=== PATIENT | male | born 1950 | race Caucasian/White ===

== ENCOUNTER 2018-05-16 10:43 | Emergency (ER) | payer MEDICARE, MEDICAID ==
--- NOTE | 2018-05-16 11:34 | ER Document Report ---
ED General - General Chief Complaint: Headache >24 hrs old Stated Complaint: HEADACHE Time Seen by Provider: 05/16/18 11:07 Mode of Arrival: Ambulatory Information source: Patient, [facility] Records Notes: 67-year-old male with hypertension, liver failure, cirrhosis, type 2 diabetes, hepatitis C presents with complaint of headache that started 1 week prior to arrival and right-sided facial droop that also started 1 week ago. Patient reports right-sided weakness for 1 year. Patient describes his headache as generally located greater on the right side, initially aching but more severe today. He states that for over one year he has had right-sided weakness and has had difficulty with his right foot. He states that he has been seen by his primary care physician and told that he did not have a stroke. Patient denies any fever, chills, nausea, vomiting, chest pain, abdominal pain, saddle anesthesia, urinary retention, fecal incontinence, history of drug abuse. TRAVEL OUTSIDE OF THE [place] IN LAST 30 DAYS: No COUNTRY TRAVELED TO/FROM: [facility] Onset: Other Onset/Duration: Gradual, Persistent, Worse Quality of pain: Achy, Throbbing Severity: Moderate Associated symptoms: Headache, Nausea - Photophobia, Weakness, Other. denies: Chest pain, Nonproductive cough, Diarrhea, Earache, Fever, Vomiting Exacerbated by: Denies Relieved by: Denies Similar symptoms previously: Yes Recently seen / treated by doctor: Yes - Related Data Allergies/Adverse Reactions: Penicillins Allergy (Severe, Verified 05/16/18 10:47) mouth swelling Past Medical History - General Information source: Patient, [facility] Records - Social History Smoking Status: Former Smoker Chew tobacco use (# tins/day): No Frequency of alcohol use: None Drug Abuse: None Lives with: Alone Family History: CAD Patient has suicidal ideation: No Patient has homicidal ideation: No - Past Medical History Cardiac Medical History: Reports: Hx Hypertension Denies: Hx Congestive Heart Failure, Hx Coronary Artery Disease, Hx DVT, Hx Heart Attack, Hx Hypercholesterolemia, Hx Pulmonary Embolism Pulmonary Medical History: Denies: Hx Asthma, Hx COPD Neurological Medical History: Denies: Hx Seizures Endocrine Medical History: Reports: Hx Diabetes Mellitus Type 2. Denies: Hx Hyperthyroidism, Hx Hypothyroidism Renal/ Medical History: Denies: Hx Peritoneal Dialysis GI Medical History: Reports: Hx Cirrhosis, Hx Hepatitis - Hep C, diagnosed 21 years ago; untreated., Hx Liver Failure Musculoskeletal Medical History: Denies Hx Arthritis Psychiatric Medical History: Reports: Hx Depression Infectious Medical History: Reports: Hx Hepatitis - Hep C, diagnosed 21 years ago; untreated.. Denies: Hx MRSA Past Surgical History: Reports: Hx Orthopedic Surgery - R Knee surgery 4. Review of Systems - Review of Systems Notes: REVIEW OF SYSTEMS: CONSTITUTIONAL : Denies fever, chills, or sweats. Denies recent illness. Denies weight loss, recent hospitalizations. EENT: Denies visual changes, eye pain. Denies sore throat, oral lesions, difficulty swallowing. CARDIOVASCULAR: Denies chest pain. Denies palpitations. Denies lower extremity edema. RESPIRATORY: Denies cough. Denies shortness of breath, wheezing. GASTROINTESTINAL: Denies abdominal pain or distention. Denies nausea, vomiting , or diarrhea. Denies blood in vomitus, stools, or per rectum. Denies black, tarry stools. Denies constipation. GENITOURINARY: Denies difficulty urinating, painful urination, frequency, blood in urine, testicular pain or penile discharge. MUSCULOSKELETAL: Denies back or neck pain or stiffness. Denies joint pain or swelling. SKIN: Denies rash, lesions or sores. HEMATOLOGIC : Denies easy bruising or bleeding. LYMPHATIC: Denies swollen glands. NEUROLOGICAL: Denies confusion or altered mental status. Denies loss of consciousness. Denies dizziness or lightheadedness. Denies weakness or paralysis. Denies sensory loss, numbness, or tingling. Denies seizures. PSYCHIATRIC: Denies anxiety or stress. Denies depression, suicidal ideation, or Physical Exam - Vital signs Vitals: Temp Pulse Resp BP Pulse Ox 98.6 F 97 14 143/73 H 96 05/16/18 10:50 05/16/18 10:50 05/16/18 10:50 05/16/18 10:50 05/16/18 10:50 - Notes Notes: PHYSICAL EXAMINATION: GENERAL: Well-appearing, well-nourished and in no acute distress. HEAD: Atraumatic, normocephalic. EYES: Pupils equal round and reactive to light, extraocular movements intact, sclera anicteric, conjunctiva are normal. Patient unable to close his right eye or raise his right eyebrow. ENT: Nares patent, oropharynx clear without exudates. Moist mucous membranes. NECK: Normal range of motion, supple without lymphadenopathy LUNGS: Breath sounds clear to auscultation bilaterally and equal. No wheezes rales or rhonchi. HEART: Regular rate and rhythm without murmurs ABDOMEN: Soft, nontender, nondistended abdomen. No guarding, no rebound. No masses appreciated. Musculoskeletal: Normal range of motion, no pitting or edema. No cyanosis. NEUROLOGICAL: Right-sided facial palsy including the forehead and right eye, right-sided facial droop. Abnormal speech speech, abnormal gait. NIH-4 for facial droop, dysarthria, right lower extremity drift. PSYCH: Normal mood, normal affect. SKIN: Warm, Dry, normal turgor, no rashes or lesions noted. Course - Re-evaluation Re-evalutation: 05/16/18 21:53 Laboratory 05/16/18 05/16/18 05/16/18 11:16 11:16 11:16 WBC 3.6 L RBC 4.52 Hgb 10.6 L Hct 33.2 L MCV 74 L MCH 23.4 L MCHC 31.8 L RDW 19.8 H Plt Count 85 L Seg Neutrophils % 57.2 Lymphocytes % 31.2 Monocytes % 7.6 Eosinophils % 2.9 Basophils % 1.1 Absolute Neutrophils 2.1 Absolute Lymphocytes 1.1 Absolute Monocytes 0.3 Absolute Eosinophils 0.1 Absolute Basophils 0.0 PT 18.6 H INR 1.48 APTT 33.3 Sodium 140.9 Potassium 3.9 Chloride 110 H Carbon Dioxide 20 L Anion Gap 11 BUN 12 Creatinine 0.87 Est GFR ( Amer) > 60 Est GFR (Non-Af Amer) > 60 Glucose 151 H Calcium 9.0 Total Bilirubin 2.7 H Direct Bilirubin 1.4 H Neonat Total Bilirubin Not Reportable Neonat Direct Bilirubin Not Reportable Neonat Indirect Bili Not Reportable AST 106 H ALT 58 Alkaline Phosphatase 77 Troponin I Total Protein 7.9 Albumin 3.5 Urine Color Urine Appearance Urine pH Ur Specific [place] Urine Protein Urine Glucose (UA) Urine Ketones Urine Blood Urine Nitrite Urine Bilirubin Urine Urobilinogen Ur Leukocyte Esterase Urine WBC (Auto) Urine RBC (Auto) Squamous Epi Cells Auto Urine Mucus (Auto) Urine Ascorbic Acid Urine Opiates Screen Urine Methadone Screen Ur Barbiturates Screen Ur Phencyclidine Scrn Ur Amphetamines Screen U Benzodiazepines Scrn Urine Cocaine Screen U Marijuana (THC) Screen 05/16/18 05/16/18 05/16/18 11:16 11:54 11:54 WBC RBC Hgb Hct MCV MCH MCHC RDW Plt Count Seg Neutrophils % Lymphocytes % Monocytes % Eosinophils % Basophils % Absolute Neutrophils Absolute Lymphocytes Absolute Monocytes Absolute Eosinophils Absolute Basophils PT INR APTT Sodium Potassium Chloride Carbon Dioxide Anion Gap BUN Creatinine Est GFR ( Amer) Est GFR (Non-Af Amer) Glucose Calcium Total Bilirubin Direct Bilirubin Neonat Total Bilirubin Neonat Direct Bilirubin Neonat Indirect Bili AST ALT Alkaline Phosphatase Troponin I < 0.012 Total Protein Albumin Urine Color ALEJO Urine Appearance CLEAR Urine pH 5.0 Ur Specific [place] 1.027 Urine Protein NEGATIVE Urine Glucose (UA) NEGATIVE Urine Ketones NEGATIVE Urine Blood NEGATIVE Urine Nitrite NEGATIVE Urine Bilirubin NEGATIVE Urine Urobilinogen 4.0 H Ur Leukocyte Esterase NEGATIVE Urine WBC (Auto) 1 Urine RBC (Auto) 2 Squamous Epi Cells Auto <1 Urine Mucus (Auto) MANY Urine Ascorbic Acid NEGATIVE Urine Opiates Screen NEGATIVE Urine Methadone Screen NEGATIVE Ur Barbiturates Screen NEGATIVE Ur Phencyclidine Scrn NEGATIVE Ur Amphetamines Screen NEGATIVE U Benzodiazepines Scrn UNCONFIRMED POSITIVE Urine Cocaine Screen NEGATIVE U Marijuana (THC) Screen NEGATIVE Head CT 05/16/18 11:30 IMPRESSION: No significant intracranial abnormalities were identified. Findings as noted above EVIDENCE OF ACUTE STROKE: NO. Head CTA 05/16/18 11:30 IMPRESSION: 1. Calcific atherosclerosis of the bilateral internal carotid artery origins without high-grade stenosis. 2. The vertebral arteries are patent bilaterally. 3. The intracranial arterial circulation is patent without evidence of stenosis , occlusion, or aneurysm. Neck CTA 05/16/18 11:30 IMPRESSION: 1. Calcific atherosclerosis of the bilateral internal carotid artery origins without high-grade stenosis. 2. The vertebral arteries are patent bilaterally. 3. The intracranial arterial circulation is patent without evidence of stenosis , occlusion, or aneurysm. Head MRI 05/16/18 13:25 IMPRESSION: Mild chronic microvascular ischemic changes with no acute intracranial imaging findings. EVIDENCE OF ACUTE STROKE: NO. 67-year-old male presents with 1 week of right-sided facial droop on right- sided headache. Vital signs stable upon arrival. Exam significant for right sided facial paralysis including the forehead. TMs clear bilaterally. NIH performed and scored as a floor for facial droop, dysarthria and ataxia of the right lower extremity. 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 He states he has been told by a few of his friends that he must have had a stroke because of the way he has been walking. He denies any injury. Denies back pain , saddle anesthesia, urinary retention or fecal incontinence. Patient does have cirrhosis but denies any abdominal pain, nausea, vomiting. CTA of the head and neck were obtained after a negative head CT and showed no large vessel occlusions. MRI was obtained and showed mild chronic microvascular ischemic changes but no acute findings. Diagnosis discussed with the patient. I did discuss treatment with the patient and the importance of keeping his eye lubricated. I also discussed that steroids and antiviral medications would unlikely shorten the course since present for greater than 72 hours but the patient would like to try the medication anyway. I did provide the patient with copies of all of his done today. He is currently in between primary care physicians and states he has an upcoming appointment this week. Patient was evaluated and treated as appropriate for the patient's presenting symptoms and complaint, with consideration of any critical or life threatening conditions that may be associated with their obtained history and exam as noted above. All results were discussed with patient and he was provided copies. Imaging and blood work performed today. Patient provided the opportunity to ask questions, and express concerns. Patient was educated on treatments based on their presumed diagnosis as noted above. At this time we will discharge the patient with return precautions and follow-up recommendations. Verbal discharge instructions given a the bedside. Medication warnings reviewed. Patient is in agreement with this plan and has verbalized understanding of return precautions. After careful consideration I feel that that patient can be safely discharged from the emergency department, they were advised to followup with a primary care physician in 2-3 days. Dictation on this chart was performed using voice recognition software and may result in unintended grammatical, spelling, syntax or errors. 05/16/18 21:55 - Vital Signs Vital signs: Temp Pulse Resp BP Pulse Ox 98.6 F 94 20 143/72 H 97 05/16/18 10:50 05/16/18 15:00 05/16/18 18:08 05/16/18 18:08 05/16/18 18:08 - Laboratory Result Diagrams: 05/16/18 11:16 05/16/18 11:16 Laboratory results interpreted by me: 05/16/18 05/16/18 05/16/18 11:16 11:16 11:16 WBC 3.6 L Hgb 10.6 L Hct 33.2 L MCV 74 L MCH 23.4 L MCHC 31.8 L RDW 19.8 H Plt Count 85 L PT 18.6 H Chloride 110 H Carbon Dioxide 20 L Glucose 151 H Total Bilirubin 2.7 H Direct Bilirubin 1.4 H AST 106 H Urine Urobilinogen 05/16/18 11:54 WBC Hgb Hct MCV MCH MCHC RDW Plt Count PT Chloride Carbon Dioxide Glucose Total Bilirubin Direct Bilirubin AST Urine Urobilinogen 4.0 H - Diagnostic Test Radiology reviewed: Image reviewed, Reports reviewed - EKG Interpretation by Me EKG shows normal: Sinus rhythm Rate: Normal Rhythm: NSR When compared to previous EKG there are: No significant change Discharge - Discharge Clinical Impression: Facial paralysis/[place] palsy HTN (hypertension) Qualifiers: Hypertension type: unspecified Qualified Code(s): I10 - Essential (primary) hypertension Cirrhosis Qualifiers: Hepatic cirrhosis type: unspecified hepatic cirrhosis Ascites presence: unspecified Qualified Code(s): K74.60 - Unspecified cirrhosis of liver Anemia Qualifiers: Anemia type: unspecified type Qualified Code(s): D64.9 - Anemia, unspecified Hepatitis C, chronic Qualifiers: Hepatic coma status: without hepatic coma Qualified Code(s): B18.2 - Chronic viral hepatitis C Headache Qualifiers: Headache type: unspecified Headache chronicity pattern: unspecified pattern Intractability: not intractable Qualified Code(s): R51 - Headache Condition: Good Disposition: HOME, SELF-CARE Instructions: Attum's Palsy ([facility]), Headache ([facility]), Steroid Medication Additional Instructions: Your imaging today did not show an acute stroke. Follow up with your [id number] hours for further care or return to the ED IMMEDIATELY if symptoms worsen or you have any concerns. If you cannot afford to follow up with your primary care physician a list of low cost clinics have been provided at the end of your discharge papers as well. Most prescribed medications have multiple side effects. The safest thing to do is when filling your prescription speak to your pharmacist regarding possible interactions with your normal home medications and over the counter medications such as Ibuprofen, Tylenol, Benadryl. If you experience any symptoms that cause you discomfort or concern you should discontinue the medication immediately and return to the emergency room or call your primary care physician. Please bring all of your imaging with you when you see your new physician next week. Prescriptions: Mineral Oil/Petrolatum,White [Artificial Tears Eye Ointment] 3.5 gm OP BID 1 Days #1 tube Prednisone [Deltasone 20 mg Tablet] 3 tab PO DAILY 5 Days #15 tablet Valacyclovir HCl [Valacyclovir] 1,000 mg PO TID #30 tablet Forms: Elevated Blood Pressure Referrals: BRENDAN GONZALEZ DO [NO LOCAL MD] - Follow up as needed ED NIH Stroke Scale - NIH Stroke Scale *: 1. NIH scale should be completed with appropriate accompanying assessment tools. *: 2. The NIH should reflect what the patient is capable of doing and should not be coached by the clinician. 1a. Level of Consciousness: 0=Alert;keenly responsive -: 1=Drowsy -: 2=Obtunded -: 3=Coma/unresponsive or reflex to noxious stimuli. 1a. Responses: 0 1b. Orientation Questions: a. What month is it? -: b. How old are you? -: 0=Answers both questions correctly. -: 1=Answers one question correctly or patient is intubated or has orotracheal trauma. -: 2=Answers neither question correctly. 1b. Responses: 0 1c. Response to commands: a. Open and close eyes? -: b. Adjudication Specialist and release hand? -: Credit is given despite weakness. Demonstration of task is permitted. Substitute command if hands cannot be used. -: 0=Performs both tasks correctly -: 1=Performs one task correctly -: 2=Performs neither task correctly 1c. Responses: 0 2. Gaze: Establish eye contact and instruct patient to "Follow my finger" -: 0=Normal -: 1=Partial gaze palsy. Gaze is abnormal in one or both eyes, but where forced deviation or total gaze paresis is not present. -: 2=Forced deviation or total gaze paresis. 2. Responses: 0 3. Visual Aldana: Sees fingers in all four quadrants. -: 0=No visual loss. -: 1=Partial hemianopsia. -: 2=Complete hemianopsia. -: 3=Bilateral hemianopsia (including Cortical blindness) 3. Responses: 0 4. Facial Movement: Instruct patient to: -: a. Show me your teeth -: b. Raise your eyebrows -: c. Close your eyes -: d. Smile -: 0=Normal symmetrical movement -: 1=Minor paralysis (flattened nasolabial fold, asymmetry on smiling). -: 2=Partial paralysis (total or near total paralysis of lower face). -: 3=Complete paralysis of upper and lower face 4. Responses: 1 5. Motor functions (left arm): Alternate sides and extend each arm with palms down (90 degrees if sitting or 45 degrees for supine). -: 0=No drift;limb holds for full 10 seconds. -: 1=Drift; limb holds but drifts down before full 10 seconds, but does not hit bed. -: 2=Some effort against gravity; limb cannot get to or maintain position. -: 3=No effort against gravity; limb falls. -: 4=No movement. -: UN=Amputation, joint fusion, explain in comments. 5. Responses (left arm): 0 5. Motor Functions (right arm): Alternate sides and extend each arm with palms down (90 degrees if sitting or 45 degrees for supine). -: 0=No drift;limb holds for full 10 seconds. -: 1=Drift; limb holds but drifts down before full 10 seconds, but does not hit bed. -: 2=Some effort against gravity; limb cannot get to or maintain position. -: 3=No effort against gravity; limb falls. -: 4=No movement. -: UN=Amputation, joint fusion, explain in comments. 5. Responses (right arm): 0 6. Motor Functions (left leg): With patient lying supine, alternate sides and extend each leg (30 degrees always while supine). -: 0=No drift, leg holds position for full 5 seconds -: 1=Drift; leg falls before full 5 seconds but does not hit bed. -: 2=Some effort against gravity, leg falls to bed but some effort against gravity. -: 3=No effort against gravity, leg falls to bed immediately. -: 4=No movement. -: UN=Amputation, joint fusion; explain in comments. 6. Responses (left leg): 0 6. Motor Functions (right leg): With patient lying supine, alternate sides and extend each leg (30 degrees always while supine). -: 0=No drift, leg holds position for full 5 seconds -: 1=Drift; leg falls before full 5 seconds but does not hit bed. -: 2=Some effort against gravity, leg falls to bed but some effort against gravity. -: 3=No effort against gravity, leg falls to bed immediately. -: 4=No movement. -: UN=Amputation, joint fusion; explain in comments. 6. Responses (right leg): 1 7. Limb Ataxia: With eyes open instruct patient to: -: a. "Touch your finger to your nose". -: b. "Touch your heel to your hester" -: 0=Absent -: 1=Present in one limb. -: 2=Present in two limbs. -: UN=Amputation or joint fusion; explain in comments. 7. Responses: 1 7. If ataxia present choose as appropriate: Right leg 8. Sensory: Test sensation using pinprick or noxious stimuli. Test as many body parts as possible. -: 0=Normal;no sensory loss -: 1=Mile to moderate sensory loss (patient feels pin prick but is less sharp on affected side). -: 2=Severe or total sensory loss. 8. Responses: 0 9. Best Language: Instruct patient to: -: a. "Describe what you see in this picture." -: b. "Name the items in this picture." -: c. "Read these sentences." -: 0=No aphasia, normal -: 1=Mild to moderate aphasia. -: 2=Severe aphasia -: 3=Mute, global aphasia, no usable speech or auditory comprehension. 9. Responses: 0 10. Articulation, Dysarthia: Instruct patient to: -: "Read these words" or "Repeat these words" -: 0=Normal -: 1=Mild to moderate; patient may slur some words but can be understood without difficulty. -: 2=Severe; patients speech so slurred as to be unintelligible in the absence of dysphasia. -: UN=Intubated or other physical barrier, explain in comments. 10. Responses: 1 11. Extinction or inattention: 0=No abnormality -: 1= Visual, tactile, auditory, spatial, or personal inattention or extinction to bilateral simulation in one or the sensory modalities. -: 2=Profound barbara-inattention or barbara-inattention to more than one modality; does not recognize own hand. Total Score: 4
[2018-05-16 11:41] LABS: INTERNATIONAL RATION (INR) 1.48
[2018-05-16 11:42] LABS: PARTIAL THROMBOPLASTIN TIME 33.3 SEC (23.5-35.8)
[2018-05-16 11:45] LABS: PROTHROMBIN TIME 18.6 SEC (11.4-15.4)
[2018-05-16 11:46] LABS: ABSOLUTE EOSINOPHILS # (AUTO) 0.1 10^3/uL (0.0-0.6); ABSOLUTE LYMPHOCYTES (AUTO) 1.1 10^3/uL (0.5-4.7); ABSOLUTE MONOCYTES (AUTO) 0.3 10^3/uL (0.1-1.4); ABSOLUTE NEUT (AUTO) 2.1 10^3/uL (1.7-8.2); BASOPHILS % (AUTO) 1.1 % (0-2); EOSINOPHILS % (AUTO) 2.9 % (0-6); HEMATOCRIT 33.2 % (37.9-51.0); HEMOGLOBIN 10.6 g/dL (13.5-17.0); LYMPHOCYTES % (AUTO) 31.2 % (13-45); MEAN CORPUSCULAR HEMOGLOBIN 23.4 pg (27.0-33.4); MEAN CORPUSCULAR HGB CONC 31.8 g/dL (32.0-36.0); MEAN CORPUSCULAR VOLUME 74 fl (80-97); MONOCYTES % (AUTO) 7.6 % (3-13); RED BLOOD COUNT 4.52 10^6/uL (4.35-5.55); RED CELL DISTRIBUTION WIDTH 19.8 % (11.5-14.0); SEGMENTED NEUTROPHILS % (AUTO) 57.2 % (42-78); TOTAL CELLS COUNTED % (AUTO) 100 %; WHITE BLOOD COUNT 3.6 10^3/uL (4.0-10.5)
[2018-05-16] MEDS ORDERED: METOCLOPRAMIDE HCL INJ/PF 10 MG/2 ML SDV IV ONE (11:50)
[2018-05-16] MEDS ORDERED: DIPHENHYDRAMINE HCL 50 MG/ML VIAL IV ONE (11:51)
[2018-05-16] MEDS ORDERED: NORMAL SALINE 500 ML IV ONE (11:51)
[2018-05-16 11:52] LABS: ALANINE AMINOTRANSFERASE 58 U/L (21-72); ALBUMIN 3.5 g/dL (3.5-5.0); ALKALINE PHOSPHATASE 77 U/L (38-126); ANION GAP 11 (5-19); ASPARTATE AMINO TRANSFERASE 106 U/L (17-59); BILIRUBIN,DIRECT 1.4 mg/dL (0.0-0.4); BILIRUBIN,TOTAL 2.7 mg/dL (0.2-1.3); BLOOD UREA NITROGEN 12 mg/dL (7-20); CARBON DIOXIDE 20 mmol/L (22-30); CHLORIDE 110 mmol/L (98-107); GLUCOSE 151 mg/dL (75-110); POTASSIUM 3.9 mmol/L (3.6-5.0); SODIUM 140.9 mmol/L (137-145); TOTAL PROTEIN 7.9 g/dL (6.3-8.2)
--- NOTE | 2018-05-16 12:06 | RADIOLOGY REPORT (SQ) ---
EXAM DESCRIPTION: CT HEAD WITHOUT COMPLETED DATE/TIME: 05/16/2018 11:44 am REASON FOR STUDY: facial droop COMPARISON: None. TECHNIQUE: Axial images acquired through the brain without intravenous contrast. Images reviewed wi th bone, brain and subdural windows. Additional sagittal and coronal reconstructions were generated. Images stored on PACS. All CT scanners at this facility use dose modulation, iterative reconstruction, and/or weight based d osing when appropriate to reduce radiation dose to as low as reasonably achievable (ALARA). [facility]: Dose Right [facility]: CareDose [facility]: Dose Right [facility]: Teradose 4D [facility]: [employer] RADIATION DOSE: mGy. LIMITATIONS: None. FINDINGS: VENTRICLES: Normal size and contour. CEREBRUM: No masses. No hemorrhage. No midline shift. No evidence for acute infarction. Normal gra y/white matter differentiation. No areas of low density in the white matter. CEREBELLUM: No masses. No hemorrhage. No alteration of density. No evidence for acute infarction. EXTRAAXIAL SPACES: No fluid collections. No masses. ORBITS AND GLOBE: No intra- or extraconal masses. Normal contour of globe without masses. CALVARIUM: No fracture. PARANASAL SINUSES: No fluid or mucosal thickening. SOFT TISSUES: No mass or hematoma. OTHER: No other significant finding. IMPRESSION: No significant intracranial abnormalities were identified. Findings as noted above EVIDENCE OF ACUTE STROKE: NO. COMMENT: Quality ID # [id number]: Final reports with documentation of one or more dose reduction techniques (e.g., Automated exposure control, adjustment of the mA and/or kV according to patient size, use of iterative reconstruction technique) TECHNICAL DOCUMENTATION: JOB ID: [id number] [employer]- All Rights Reserved Reading location - IP/workstation name: [email or web address]
[2018-05-16 12:07] LABS: PLATELET COUNT 85 10^3/uL (150-450)
--- NOTE | 2018-05-16 12:10 | RADIOLOGY REPORT (SQ) ---
EXAM DESCRIPTION: CTA NECK; CTA HEAD COMPLETED DATE/TIME: 05/16/2018 11:44 am REASON FOR STUDY: facial droop COMPARISON: None. TECHNIQUE: Post IV contrast scanning, thin section axial imaging through the neck and brain to evalu ate the arterial structures. Source and MIP images are saved and reviewed on PACS. Advanced 3D imaging as volume-rendering, MIPs, SSD performed? yes All CT scanners at this facility use dose modulation, iterative reconstruction, and/or weight based d osing when appropriate to reduce radiation dose to as low as reasonably achievable (ALARA). [facility]: Dose Right [facility]: CareDose [facility]: Dose Right [facility]: Teradose 4D [facility]: [employer] CONTRAST TYPE AND DOSE: contrast/concentration: Isovue 350.00 mg/ml; Total Contrast Delivered: 70.0 ml; Total Saline Delivered: 57.0 ml RENAL FUNCTION: GFR > 60. LIMITATIONS: None. FINDINGS: CERVICAL CAROTID AND VERTEBRAL SYSTEMS: There is calcific atherosclerosis of the bilatera l internal carotid artery origins without high-grade stenosis. The remaining extracranial carotid ci rculations are patent. No significant atherosclerosis at the common carotid origins. The vertebral arteries are patent to the confluence of the basilar artery and codominant. [place]: The anterior, middle, posterior cerebral arteries are all patent. No evidence of a neurysm or focal stenosis. POSTERIOR CIRCULATION: The distal vertebral arteries are patent as is the basilar artery. No aneurysm . The posterior communicating arteries are not well visualized, likely diminutive. BRAIN: No gross enhancing lesions as visualized. The superior cerebral hemispheres are not included in the field of view. BONES: Intact as visualized. SINUSES: No fluid or mucosal thickening. OTHER: No other significant finding. IMPRESSION: 1. Calcific atherosclerosis of the bilateral internal carotid artery origins without hig h-grade stenosis. 2. The vertebral arteries are patent bilaterally. 3. The intracranial arterial circulation is patent without evidence of stenosis, occlusion, or aneur ysm. TECHNICAL DOCUMENTATION: JOB ID: [id number] Quality ID # [id number]: Final reports with documentation of one or more dose reduction techniques (e.g., Au tomated exposure control, adjustment of the mA and/or kV according to patient size, use of iterative reconstruction technique) 2010 [employer]- All Rights Reserved Reading location - IP/workstation name: [email or web address]
--- NOTE | 2018-05-16 12:10 | RADIOLOGY REPORT (SQ) ---
EXAM DESCRIPTION: CTA NECK; CTA HEAD COMPLETED DATE/TIME: 05/16/2018 11:44 am REASON FOR STUDY: facial droop COMPARISON: None. TECHNIQUE: Post IV contrast scanning, thin section axial imaging through the neck and brain to evalu ate the arterial structures. Source and MIP images are saved and reviewed on PACS. Advanced 3D imaging as volume-rendering, MIPs, SSD performed? yes All CT scanners at this facility use dose modulation, iterative reconstruction, and/or weight based d osing when appropriate to reduce radiation dose to as low as reasonably achievable (ALARA). [facility]: Dose Right [facility]: CareDose [facility]: Dose Right [facility]: Teradose 4D [facility]: [employer] CONTRAST TYPE AND DOSE: contrast/concentration: Isovue 350.00 mg/ml; Total Contrast Delivered: 70.0 ml; Total Saline Delivered: 57.0 ml RENAL FUNCTION: GFR > 60. LIMITATIONS: None. FINDINGS: CERVICAL CAROTID AND VERTEBRAL SYSTEMS: There is calcific atherosclerosis of the bilatera l internal carotid artery origins without high-grade stenosis. The remaining extracranial carotid ci rculations are patent. No significant atherosclerosis at the common carotid origins. The vertebral arteries are patent to the confluence of the basilar artery and codominant. [place]: The anterior, middle, posterior cerebral arteries are all patent. No evidence of a neurysm or focal stenosis. POSTERIOR CIRCULATION: The distal vertebral arteries are patent as is the basilar artery. No aneurysm . The posterior communicating arteries are not well visualized, likely diminutive. BRAIN: No gross enhancing lesions as visualized. The superior cerebral hemispheres are not included in the field of view. BONES: Intact as visualized. SINUSES: No fluid or mucosal thickening. OTHER: No other significant finding. IMPRESSION: 1. Calcific atherosclerosis of the bilateral internal carotid artery origins without hig h-grade stenosis. 2. The vertebral arteries are patent bilaterally. 3. The intracranial arterial circulation is patent without evidence of stenosis, occlusion, or aneur ysm. TECHNICAL DOCUMENTATION: JOB ID: [id number] Quality ID # [id number]: Final reports with documentation of one or more dose reduction techniques (e.g., Au tomated exposure control, adjustment of the mA and/or kV according to patient size, use of iterative reconstruction technique) 2010 [employer]- All Rights Reserved Reading location - IP/workstation name: [email or web address]
[2018-05-16 12:45] LABS: URINE AMPHETAMINES SCREEN NEGATIVE; URINE BARBITURATES SCREEN NEGATIVE; URINE BENZODIAZEPINES SCREEN UNCONFIRMED POSITIVE; URINE COCAINE SCREEN NEGATIVE; URINE MARIJUANA (THC) SCREEN NEGATIVE; URINE METHADONE SCREEN NEGATIVE; URINE PHENCYCLIDINE SCREEN NEGATIVE
[2018-05-16 12:55] LABS: APPEARANCE,URINE CLEAR; BILIRUBIN,URINE NEGATIVE (NEGATIVE); COLOR,URINE AMBER; GLUCOSE, URINE NEGATIVE (NEGATIVE); KETONES,URINE NEGATIVE (NEGATIVE); LEUKOCYTE ESTERASE,URINE NEGATIVE (NEGATIVE); NITRITE,URINE NEGATIVE (NEGATIVE); PROTEIN,URINE NEGATIVE (NEGATIVE); URINE SPECIFIC GRAVITY 1.027
--- NOTE | 2018-05-16 15:43 | EKG REPORT ---
SEVERITY:- NORMAL ECG - SINUS RHYTHM : Confirmed by: Luisa Beasley MD 16-May-2018 15:43:19
[2018-05-16] MEDS ORDERED: PREDNISONE 20 MG TABLET PO ONE (16:16)
--- NOTE | 2018-05-16 17:30 | RADIOLOGY REPORT (SQ) ---
EXAM DESCRIPTION: MRI HEAD WITHOUT COMPLETED DATE/TIME: 05/16/2018 5:17 pm REASON FOR STUDY: r sided weakness COMPARISON: 01/07/2016 TECHNIQUE: Multiplanar imaging includes non-contrasted T1, T2, FLAIR, and diffusion with ADC map seq uences. Images stored on PACS. LIMITATIONS: None. FINDINGS: ANATOMY: No anomalies. Normal vascular flow voids. Pituitary fossa normal. CSF SPACES: Normal in size and contour. No hemorrhage. CEREBRUM: Sulci and gyri normal in size and contour. Scattered areas of increased white matter signa l on FLAIR imaging. No evidence of hemorrhage, mass, or extraaxial fluid collection. POSTERIOR FOSSA: No signal alteration. No hemorrhage. No edema, masses or mass effect. Internal phi tory canals, cerebello-pontine angles, mastoids normal. DIFFUSION IMAGING: Negative for acute or sub-acute infarction. ORBITS: No masses. Globes normal. PARANASAL SINUSES: No fluid levels. Mucosa normal. OTHER: No other significant finding. IMPRESSION: Mild chronic microvascular ischemic changes with no acute intracranial imaging findings. EVIDENCE OF ACUTE STROKE: NO. TECHNICAL DOCUMENTATION: JOB ID: [id number] [employer]- All Rights Reserved Reading location - IP/workstation name: [email or web address]
[2018-05-16] MEDS ORDERED: HYDROMORPHONE HCL INJ/PF 2 MG/ML AMPULE IV ONE (17:42)
[2018-05-16] MEDS ORDERED: ACYCLOVIR 800 MG TABLET PO ONE (17:42)
[2018-05-16 18:09] VITALS: BP 143/72
== END 2018-05-16 18:24 | disposition home or self-care (01) ==
LOC: ER 10:43
DX: R51 Headache (principal); G51.0 Bell's palsy; I10 Essential (primary) hypertension; E11.9 Type 2 diabetes mellitus without complications; K74.60 Unspecified cirrhosis of liver; D64.9 Anemia, unspecified; B18.2 Chronic viral hepatitis C; I65.23 Occlusion and stenosis of bilateral carotid arteries; R47.1 Dysarthria and anarthria; R27.0 Ataxia, unspecified; H53.149 Visual discomfort, unspecified; Z88.0 Allergy status to penicillin; Z87.891 Personal history of nicotine dependence
CPT/HCPCS: 93005; 99284; 96361; 96374; 96375; 36415; 85025; 85610; 85730; 80053; 81001; 84484; 80307; 70551; 70450; 70496; 70498; 93010; J1200; J2765; J1170; A9270 ×2; J7040; J3490; J7512

== ENCOUNTER 2018-06-18 11:05 | Inpatient (IN) | payer MEDICARE, MEDICAID ==
[2018-06-18] MEDS ORDERED: NORMAL SALINE 1000 ML 1,000 ML IV ONE (11:48)
[2018-06-18 12:17] LABS: ABSOLUTE EOSINOPHILS # (AUTO) 0.1 10^3/uL (0.0-0.6); ABSOLUTE LYMPHOCYTES (AUTO) 0.4 10^3/uL (0.5-4.7); ABSOLUTE MONOCYTES (AUTO) 0.3 10^3/uL (0.1-1.4); ABSOLUTE NEUT (AUTO) 1.5 10^3/uL (1.7-8.2); BASOPHILS % (AUTO) 0.3 % (0-2); EOSINOPHILS % (AUTO) 3.7 % (0-6); HEMATOCRIT 32.7 % (37.9-51.0); HEMOGLOBIN 10.3 g/dL (13.5-17.0); LYMPHOCYTES % (AUTO) 19.5 % (13-45); MEAN CORPUSCULAR HEMOGLOBIN 22.8 pg (27.0-33.4); MEAN CORPUSCULAR HGB CONC 31.4 g/dL (32.0-36.0); MEAN CORPUSCULAR VOLUME 73 fl (80-97); MONOCYTES % (AUTO) 12.2 % (3-13); PLATELET COUNT 109 10^3/uL (150-450); RED BLOOD COUNT 4.49 10^6/uL (4.35-5.55); RED CELL DISTRIBUTION WIDTH 23.3 % (11.5-14.0); SEGMENTED NEUTROPHILS % (AUTO) 64.3 % (42-78); TOTAL CELLS COUNTED % (AUTO) 100 %; WHITE BLOOD COUNT 2.3 10^3/uL (4.0-10.5)
[2018-06-18 12:24] LABS: INTERNATIONAL RATION (INR) 1.74; PROTHROMBIN TIME 21.2 SEC (11.4-15.4)
[2018-06-18 12:28] LABS: APPEARANCE,URINE CLOUDY; BILIRUBIN,URINE MODERATE (NEGATIVE); COLOR,URINE AMBER; GLUCOSE, URINE NEGATIVE (NEGATIVE); KETONES,URINE NEGATIVE (NEGATIVE); LEUKOCYTE ESTERASE,URINE NEGATIVE (NEGATIVE); NITRITE,URINE POSITIVE (NEGATIVE); PROTEIN,URINE 30 mg/dL (NEGATIVE); URINE SPECIFIC GRAVITY 1.023
[2018-06-18 12:30] LABS: ALANINE AMINOTRANSFERASE 63 U/L (21-72); ALBUMIN 3.4 g/dL (3.5-5.0); ALKALINE PHOSPHATASE 83 U/L (38-126); ANION GAP 12 (5-19); ASPARTATE AMINO TRANSFERASE 150 U/L (17-59); BILIRUBIN,DIRECT 5.4 mg/dL (0.0-0.4); BILIRUBIN,TOTAL 6.9 mg/dL (0.2-1.3); BLOOD UREA NITROGEN 12 mg/dL (7-20); CALCIUM 9.2 mg/dL (8.4-10.2); CARBON DIOXIDE 20 mmol/L (22-30); CHLORIDE 105 mmol/L (98-107); GLUCOSE 152 mg/dL (75-110); POTASSIUM 3.5 mmol/L (3.6-5.0); SODIUM 136.8 mmol/L (137-145); TOTAL PROTEIN 7.6 g/dL (6.3-8.2)
[2018-06-18 12:31] LABS: ALCOHOL < 10 mg/dL (NONE DETECTED)
--- NOTE | 2018-06-18 12:50 | RADIOLOGY REPORT (SQ) ---
EXAM DESCRIPTION: KNEE RIGHT 4 VIEWS COMPLETED DATE/TIME: 06/18/2018 12:29 pm REASON FOR STUDY: Fell and landed on right knee, swollen COMPARISON: None. NUMBER OF VIEWS: Four views. TECHNIQUE: AP, lateral, and both oblique radiographic images acquired of the right knee. LIMITATIONS: None. FINDINGS: MINERALIZATION: Normal. BONES: No acute fracture or dislocation. No worrisome bone lesions. Orthopedic staple in the proxim al tibia. JOINT: No significant effusion. Severe degenerative changes involving the patellofemoral joint in th e lateral compartment with mild degenerative changes involving the medial compartment. Mild chondroc alcinosis. SOFT TISSUES: Mild soft tissue edema. OTHER: No other significant finding. IMPRESSION: Degenerative changes without evidence of fracture. TECHNICAL DOCUMENTATION: JOB ID: [id number] [employer]- All Rights Reserved Reading location - IP/workstation name: [email or web address]
--- NOTE | 2018-06-18 13:58 | ER Document Report ---
ED General - General Chief Complaint: Knee Pain Stated Complaint: RIGHT KNEE PAIN Time Seen by Provider: 06/18/18 11:45 Notes: Patient fell 2 or 3 days ago and is complaining of pain in his right knee. Found by a neighbor today. Patient's noted that his skin and eyes have been turning yellow for the past few weeks. He noticed his urine is orange for the past week. Says he has not eaten anything since Monday. Not urinating. 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 Denies any nausea or vomiting or diarrhea. Says he has some pain in the left abdomen. Denies any chest pain. Denies any shortness of breath. Recent history of Tatum's palsy with right facial droop. TRAVEL OUTSIDE OF THE [place] IN LAST 30 DAYS: No COUNTRY TRAVELED TO/FROM: [place] - Related Data Allergies/Adverse Reactions: Penicillins Allergy (Severe, Verified 06/18/18 17:17) mouth swelling Past Medical History - Social History Smoking Status: Former Smoker Chew tobacco use (# tins/day): No Frequency of alcohol use: Stopped drinking 3 months prior Drug Abuse: None Family History: CAD Patient has suicidal ideation: No Patient has homicidal ideation: No - Past Medical History Cardiac Medical History: Reports: Hx Hypertension Neurological Medical History: Denies: Hx Seizures Endocrine Medical History: Reports: Hx Diabetes Mellitus Type 2. Denies: Hx Hyperthyroidism, Hx Hypothyroidism Renal/ Medical History: Denies: Hx Peritoneal Dialysis GI Medical History: Reports: Hx Cirrhosis, Hx Gastroesophageal Reflux Disease, Hx Hepatitis - Hep C, diagnosed 21 years ago; untreated., Hx Liver Failure Musculoskeletal Medical History: Denies Hx Arthritis Psychiatric Medical History: Reports: Hx Depression Infectious Medical History: Reports: Hx Hepatitis - Hep C, diagnosed 21 years ago; untreated.. Denies: Hx MRSA Past Surgical History: Reports: Hx Orthopedic Surgery - R Knee surgery 4. Review of Systems - Review of Systems Notes: REVIEW OF SYSTEMS: CONSTITUTIONAL : Denies fever. EENT: Denies eye, ear, nose or mouth or throat pain or other symptoms. Yellow color to the eyes over the past few weeks. CARDIOVASCULAR: Denies chest pain. RESPIRATORY: Denies cough, chest congestion, or shortness of breath. GASTROINTESTINAL: Says he has some pain in the left lower quadrant region of the abdomen but no nausea, vomiting, or diarrhea.. GENITOURINARY: Urine color has turned orange in the past week. Says his urine output has decreased significantly in the last couple of days. Denies difficulty or painful urinating, urinary frequency, blood in urine. MUSCULOSKELETAL: Fell on right knee 2 or 3 days ago. Swollen and painful with a black area over the center of the swollen right knee. Denies back or neck pain. Denies joint pain or swelling. SKIN: Denies rash or skin lesions. NEUROLOGICAL: Denies LOC or altered mental status. Denies headache. Denies sensory loss or motor deficits. ALL OTHER SYSTEMS REVIEWED AND NEGATIVE. Physical Exam - Vital signs Vitals: Resp Pulse Ox 18 97 06/18/18 12:14 06/18/18 12:14 Interpretation: Hypertensive Notes: PHYSICAL EXAMINATION: GENERAL: Jaundice of the skin and eyes, in no acute distress. HEAD: Atraumatic, normocephalic. EYES: Pupils equal round and reactive to light, extraocular movements intact. Scleral icterus. ENT: oropharynx clear without exudates. Moist mucous membranes. Right facial droop of the right corner of the mouth and right eyelids. Patient says he was diagnosed with Tatum's palsy a few weeks ago. NECK: Normal range of motion, supple. LUNGS: Breath sounds clear and equal bilaterally. HEART: Regular rate and rhythm without murmurs. ABDOMEN: Soft, nontender except for mild tenderness in the left lower quadrant, but no guarding or rebound. No masses. BACK: No tenderness throughout entire back. EXTREMITIES: Normal range of motion without pain. Patient has some swelling of the anterior aspect of the right knee. In the center is a black eschar formation. There is some erythema around the eschar. NEUROLOGICAL: Normal speech, unsteady gait. Normal sensory, motor, and reflex exams. Awake, alert, and oriented x3. Cranial nerves normal. PSYCH: Normal mood, normal affect. SKIN: Warm, dry, no rashes. Multiple bruises throughout the patient's torso and extremities. Course - Vital Signs Vital signs: Temp Pulse Resp BP Pulse Ox 97.7 F 108 H 18 146/72 H 99 06/18/18 17:42 06/18/18 17:42 06/18/18 17:42 06/18/18 17:42 06/18/18 17:42 - Laboratory Result Diagrams: 06/18/18 11:55 06/18/18 11:55 Laboratory results interpreted by me: 06/18/18 06/18/18 06/18/18 11:55 11:55 11:55 WBC 2.3 L Hgb 10.3 L Hct 32.7 L MCV 73 L MCH 22.8 L MCHC 31.4 L RDW 23.3 H Plt Count 109 L Absolute Neutrophils 1.5 L Absolute Lymphocytes 0.4 L PT 21.2 H Sodium 136.8 L Potassium 3.5 L Carbon Dioxide 20 L Creatinine 1.34 H Est GFR (Non-Af Amer) 53 L Glucose 152 H Total Bilirubin 6.9 H Direct Bilirubin 5.4 H AST 150 H Albumin 3.4 L Urine Protein Urine Blood Urine Nitrite Urine Bilirubin Urine Urobilinogen 06/18/18 11:55 WBC Hgb Hct MCV MCH MCHC RDW Plt Count Absolute Neutrophils Absolute Lymphocytes PT Sodium Potassium Carbon Dioxide Creatinine Est GFR (Non-Af Amer) Glucose Total Bilirubin Direct Bilirubin AST Albumin Urine Protein 30 H Urine Blood SMALL H Urine Nitrite POSITIVE H Urine Bilirubin MODERATE H Urine Urobilinogen 4.0 H - Diagnostic Test Radiology results interpreted by me: 06/18/18 14:53 X-ray of the patient's right knee shows no evidence of dislocation. No fracture seen. Some arthritis present. Discharge - Discharge Clinical Impression: Cirrhosis of liver, Liver failure Condition: Stable Admitting Provider: Hospitalist Unit Admitted: Telemetry
[2018-06-18] MEDS ORDERED: TRAMADOL HCL 50 MG TABLET PO ONE (14:04)
[2018-06-18] MEDS ORDERED: ACETAMINOPHEN 325 MG TABLET PO PRN (14:52)
[2018-06-18] MEDS ORDERED: MAG HYDROX/AL HYDROX/SIMETH SUSP 30 ML UDCUP PO PRN (14:52)
[2018-06-18] MEDS ORDERED: ONDANSETRON HCL INJ/PF 4 MG/2 ML SDV IV PRN (14:52)
[2018-06-18] MEDS ORDERED: MULTIVITAMINS W-IRON TABLET, CHEWABLE PO ONE (16:25)
[2018-06-18] MEDS ORDERED: GLUCAGON,HUMAN RECOMB 1 MG INJ IM PRN (16:29)
[2018-06-18] MEDS ORDERED: DEXTROSE 50%-WATER 25 GM/50 ML DISP.SYRIN IV PRN ×2 (16:29)
[2018-06-18] MEDS ORDERED: DEXTROSE 40% GEL 15 GM TUBE PO PRN ×2 (16:29)
--- NOTE | 2018-06-18 16:33 | PDOC H&P ---
History of Present Illness Admission Date/PCP: 06/18/18 15:04 Patient complains of: fall, Rt knee pain History of Present Illness: ELIS GRIGGS is a 67 year old male with a past medical history of end-stage liver disease, hepatitis C, DM type II, neuropathy, hypertension, GERD, depression, tobacco dependence, alcohol dependence, and drug abuse (patient reports that he discontinued tobacco, alcohol, recreational drugs 3 months ago) who presented to the emergency department today with a primary complaint of right knee pain status post mechanical fall at home. The patient reports that he has had multiple falls at home over the last month, reportedly has not had anything to eat in approximately 5 days, cannot recall whether or not he is drinking fluids but does note that he has not had any urine output. Evaluation in the emergency department revealed mild tachycardia (HR 114), tachypnea (RR 22), baseline anemia (hemoglobin 10.3), hypercoagulability (INR 1.74), AK I (CR 1.34; baseline 0.87), elevated LFTs (total bili 6.9; baseline 2.5), and a urinary tract infection. He is referred to the hospitalist service for admission and management of the ab ove stated complaints. Past Medical History Cardiac Medical History: Reports: Hypertension Denies: Congestive Heart Failure, Coronary Artery Disease, Myocardial Infarction, Hyperlipidema, Pulmonary Embolism Pulmonary Medical History: Denies: Asthma, Chronic Obstructive Pulmonary Disease (COPD) EENT Medical History: Reports: None Neurological Medical History: Denies: Ischemic CVA, Seizures Endocrine Medical History: Reports: Diabetes Mellitus Type 2, Obesity Denies: Hyperthyroidism, Hypothyroidism Renal/ Medical History: Reports: None Malignancy Medical History: Reports: None GI Medical History: Reports: Cirrhosis, Gastroesophageal Reflux Disease, Hepatitis - Hep C, diagnosed 21 years ago; untreated. Musculoskeltal Medical History: Denies: Arthritis Skin Medical History: Reports: None Psychiatric Medical History: Reports: Alcohol Dependency, Depression, Substance Abuse, Tobacco Dependency Traumatic Medical History: Reports: None Hematology: Reports: Anemia Infectious Medical History: Denies: Methicillin-Resistant Staph Aureus Past Surgical History Past Surgical History: Reports: Orthopedic Surgery - R Knee surgery 4. Social History Information Source: Patient Lives with: Alone Smoking Status: Former Smoker Last Time Smoked: 02/24/2018 Frequency of Alcohol Use: Heavy Amount of Alcoholic Beverages Per Day: 6 Hx Recreational Drug Use: Yes Drugs: Marijuana Hx Prescription Drug Abuse: No - Advance Directive Resuscitation Status: Do Not Resuscitate Surrogate healthcare decision maker:: Patient's daughter, Kerri Leigh, Family History Family History: CAD Parental Family History Reviewed: Yes Children Family History Reviewed: Yes Sibling(s) Family History Reviewed.: Yes Medication/Allergy Home Medications: Tamsulosin HCl [Flomax 0.4 mg Cap.sr] 0.4 mg PO PCSUPPER #30 cap.sr.24h 04/18/14 Amlodipine Besylate/Benazepril [Amlodipine-Benazepril 10-20 mg] 1 cap PO DAILY 03/30/16 Furosemide [Lasix 20 mg Tablet] 20 mg PO QAM 03/30/16 Gabapentin 300 mg PO HSP 03/30/16 Metformin HCl [Glucophage] 1,000 mg PO BID 03/30/16 Methadone HCl 20 mg PO Q8H 03/30/16 Omeprazole 40 mg PO DAILY 03/30/16 Oxycodone HCl [Oxy-Ir 5 mg Tablet] 5 mg PO Q4HP PRN 03/30/16 Zolpidem Tartrate [Ambien 5 mg Tablet] 10 mg PO HSP PRN 03/30/16 Sertraline HCl [Zoloft 50 mg Tablet] 50 mg PO DAILY #30 tablet 04/02/16 Sulfamethoxazole/Trimethoprim [Septra-Ds 800-160 mg Tablet] 1 tab PO BID #20 tablet 04/02/16 Mineral Oil/Petrolatum,White [Artificial Tears Eye Ointment] 3.5 gm OP BID 1 Days #1 tube 05/16/18 Prednisone [Deltasone 20 mg Tablet] 3 tab PO DAILY 5 Days #15 tablet 05/16/18 Valacyclovir HCl [Valacyclovir] 1,000 mg PO TID #30 tablet 05/16/18 Allergies/Adverse Reactions: Penicillins Allergy (Severe, Verified 05/16/18 10:47) mouth swelling Review of Systems Constitutional: PRESENT: anorexia, fatigue, weakness. ABSENT: chills, fever(s), headache(s), weight gain, weight loss Eyes: ABSENT: visual disturbances Ears: ABSENT: hearing changes Cardiovascular: PRESENT: edema. ABSENT: chest pain, dyspnea on exertion, orthropnea, palpitations Respiratory: ABSENT: cough, hemoptysis Gastrointestinal: PRESENT: bloating, heartburn, nausea. ABSENT: abdominal pain, constipation, diarrhea, hematemesis, hematochezia, vomiting Genitourinary: PRESENT: difficulty urinating. ABSENT: dysuria, hematuria Musculoskeletal: PRESENT: muscle weakness. ABSENT: joint swelling Integumentary: PRESENT: wounds - Abrasion right knee. ABSENT: rash Neurological: PRESENT: abnormal gait, frequent falls, weakness. ABSENT: abnormal speech, confusion, dizziness, focal weakness, syncope Psychiatric: ABSENT: anxiety, depression, homidical ideation, suicidal ideation Endocrine: ABSENT: cold intolerance, heat intolerance, polydipsia, polyuria Hematologic/Lymphatic: ABSENT: easy bleeding, easy bruising Physical Exam Vital Signs: Temp Pulse Resp BP Pulse Ox 26 H 136/78 H 100 06/18/18 15:01 06/18/18 15:01 06/18/18 14:12 Intake & Output 06/17/18 06/18/18 06/19/18 06:59 06:59 06:59 Weight 127.006 kg General appearance: PRESENT: no acute distress, disheveled, obese, well- developed, other - Anasarca Head exam: PRESENT: atraumatic, normocephalic Eye exam: PRESENT: conjunctiva pink, EOMI, PERRLA, scleral icterus Ear exam: PRESENT: normal external ear exam Mouth exam: PRESENT: moist, tongue midline Neck exam: ABSENT: carotid bruit, JVD, lymphadenopathy, thyromegaly Respiratory exam: PRESENT: clear to auscultation leno, decreased breath sounds - Bibasilar, symmetrical, unlabored. ABSENT: rales, rhonchi, wheezes Cardiovascular exam: PRESENT: RRR, +S1, +S2, tachycardia. ABSENT: diastolic murmur, rubs, systolic murmur Pulses: PRESENT: normal dorsalis pedis pul Vascular exam: PRESENT: normal capillary refill GI/Abdominal exam: PRESENT: ascites, distended, normal bowel sounds, soft, tenderness - Generalized. ABSENT: guarding, mass, organolmegaly, rebound Rectal exam: PRESENT: deferred Extremities exam: PRESENT: full ROM. ABSENT: calf tenderness, clubbing, pedal edema Neurological exam: PRESENT: alert, awake, oriented to person, oriented to place, oriented to time, oriented to situation, CN II-XII grossly intact, other - Intermittent confusion; forgetfulness. ABSENT: motor sensory deficit Psychiatric exam: PRESENT: appropriate affect, normal mood. ABSENT: homicidal ideation, suicidal ideation Skin exam: PRESENT: dry, jaundice, warm, other - Abrasion right knee; numerous scattered ecchymosis. ABSENT: cyanosis, rash Results Laboratory Results: 06/18/18 11:55 06/18/18 11:55 06/18/18 06/18/18 06/18/18 11:55 11:55 11:55 WBC 2.3 L RBC 4.49 Hgb 10.3 L Hct 32.7 L MCV 73 L MCH 22.8 L MCHC 31.4 L RDW 23.3 H Plt Count 109 L Seg Neutrophils % 64.3 Lymphocytes % 19.5 Monocytes % 12.2 Eosinophils % 3.7 Basophils % 0.3 Absolute Neutrophils 1.5 L Absolute Lymphocytes 0.4 L Absolute Monocytes 0.3 Absolute Eosinophils 0.1 Absolute Basophils 0.0 Sodium 136.8 L Potassium 3.5 L Chloride 105 Carbon Dioxide 20 L Anion Gap 12 BUN 12 Creatinine 1.34 H Est GFR ( Amer) > 60 Est GFR (Non-Af Amer) 53 L Glucose 152 H Calcium 9.2 Total Bilirubin 6.9 H AST 150 H ALT 63 Alkaline Phosphatase 83 Ammonia Total Protein 7.6 Albumin 3.4 L Urine Color ALEJO Urine Appearance CLOUDY Urine pH 5.0 Ur Specific [place] 1.023 Urine Protein 30 H Urine Glucose (UA) NEGATIVE Urine Ketones NEGATIVE Urine Blood SMALL H Urine Nitrite POSITIVE H Ur Leukocyte Esterase NEGATIVE Urine WBC (Auto) 39 Urine RBC (Auto) 4 06/18/18 06/18/18 13:10 14:56 WBC RBC Hgb Hct MCV MCH MCHC RDW Plt Count Seg Neutrophils % Lymphocytes % Monocytes % Eosinophils % Basophils % Absolute Neutrophils Absolute Lymphocytes Absolute Monocytes Absolute Eosinophils Absolute Basophils Sodium Potassium Chloride Carbon Dioxide Anion Gap BUN Creatinine Est GFR ( Amer) Est GFR (Non-Af Amer) Glucose Calcium Total Bilirubin AST ALT Alkaline Phosphatase Ammonia Cancelled 23.3 Total Protein Albumin Urine Color Urine Appearance Urine pH Ur Specific [place] Urine Protein Urine Glucose (UA) Urine Ketones Urine Blood Urine Nitrite Ur Leukocyte Esterase Urine WBC (Auto) Urine RBC (Auto) Impressions: Knee X-Ray 06/18/18 11:46 IMPRESSION: Degenerative changes without evidence of fracture. Assessment & Plan - Diagnosis (1) Acute kidney injury Is this a current diagnosis for this admission?: Yes Plan: Patient is noted to have an acute kidney injury with a creatinine of 1.34 (up from baseline of 0.8); likely prerenal secondary to poor p.o. intake as the patient reports that he has had poor p.o. intake times 5 days. However, he also reports difficulty urinating in patient with known BPH. The patient is admitted to the medical floor on continuous cardiac telemetry. He is provided IV fluids. Encourage p.o. fluids. We will bladder scan and insert Polk catheter for evidence of urinary retention. Consider need for renal ultrasound. Resume his home dose Flomax. Strict I&O's. Treatment of urinary tract infection with antibiotics. (2) Urinary tract infection Qualifiers: Urinary tract infection type: acute cystitis Hematuria presence: with hematuria Qualified Code(s): N30.01 - Acute cystitis with hematuria Is this a current diagnosis for this admission?: Yes Plan: Patient is noted to have urinary tract infection on urinalysis with positive protein, blood, nitrite, WBCs, bacteria Urine and blood cultures are pending. He is placed on IV Rocephin; will adjust as cultures result. Continue IV maintenance fluids. (3) End-stage liver disease Is this a current diagnosis for this admission?: Yes Plan: Patient with end-stage liver disease secondary to hepatitis C and alcohol abuse/dependence. Meld score 23. We will start spironolactone 100 mg and Lasix 40 mg for ascites. Hold on propanolol; consider initiating if blood pressures tolerate. Per patient, no history of esophageal varices/GI bleed. Will arrange for a therapeutic paracentesis. Palliative care consultation. Registered dietitian is consulted. Discharge plans are consulted; at minimum, patient will require home health nursing at discharge. (4) Anemia of chronic disease Is this a current diagnosis for this admission?: Yes Plan: At baseline with hemoglobin of 10.3. No evidence of active bleeding. Start multivitamin with iron supplementation. Registered dietitian is consulted; appreciate their evaluation recommendations. (5) Diabetes Qualifiers: Diabetes mellitus type: type 2 Diabetes mellitus fci insulin use: without porcelain finisher use Diabetes mellitus complication status: with kidney complications Diabetes mellitus complication detail: with nephropathy Qualified Code(s): E11.21 - Type 2 diabetes mellitus with diabetic nephropathy Is this a current diagnosis for this admission?: Yes Plan: The patient reports that he does not have type 2 diabetes, however, multiple admissions comment on his use of metformin and Januvia. Glucose is mildly elevated to 152 on random chemistry today. Will obtain A1c with morning labs. Accu-Cheks before meals and at bedtime with Humalog for sliding scale coverage. Hypoglycemia protocols in place. Registered dietitian is consulted. (6) Thrombocytopenia Is this a current diagnosis for this admission?: Yes Plan: Secondary to end-stage liver disease. Continue daily aspirin 81 mg. Reilly/SCDS for DVT prophylaxis; hold on heparin. - Time Time Spent: 50 to 70 Minutes Medications reviewed and adjusted accordingly: Yes
[2018-06-18] MEDS ORDERED: FUROSEMIDE 40 MG TABLET PO ONE (17:15)
[2018-06-18] MEDS ORDERED: LIDOCAINE 5% (700 MG) TRANSDERMAL ADH..PATCH TP ONE ×2 (17:15→20:00)
[2018-06-18] MEDS ORDERED: FOLIC ACID 1 MG TABLET PO ONE (17:15)
[2018-06-18] MEDS ORDERED: SPIRONOLACTONE 25 MG TABLET PO ONE (17:15)
[2018-06-18] MEDS ORDERED: DIAZEPAM 5 MG TABLET PO PRN (17:57)
[2018-06-18] MEDS ORDERED: DOCUSATE SODIUM 100 MG CAPSULE PO ONE (18:00)
[2018-06-18] MEDS ORDERED: CEFTRIAXONE 1 GM/D5W RTU 1 GM/50 ML RTUPB IV SCH (18:00)
[2018-06-18] MEDS ORDERED: THIAMINE HCL 100 MG TABLET PO ONE (18:00)
[2018-06-18] MEDS: TAMSULOSIN HCL 0.4 MG CAP.SR.24H PO SCH (18:25)
[2018-06-18] MEDS: LANSOPRAZOLE 15 MG TAB.RAP.DR PO SCH (18:27)
[2018-06-18] MEDS: GABAPENTIN 300 MG CAPSULE PO SCH (22:08)
[2018-06-18] MEDS: AMITRIPTYLINE HCL 50 MG TABLET PO SCH (22:08)
[2018-06-18] MEDS: CEFTRIAXONE SODIUM 1,000 MG in DEXTROSE 5%-WATER 50 ML IV SCH (22:09)
[2018-06-18] MEDS: INSULIN LISPRO 100 UNIT/ML 3 ML VIAL SUBCUT PRN (22:15)
[2018-06-18] MEDS: TRAMADOL HCL 50 MG TABLET PO PRN (22:18)
[2018-06-19] MEDS: LANSOPRAZOLE 15 MG TAB.RAP.DR PO SCH ×2 (05:15→17:37)
[2018-06-19] MEDS: GABAPENTIN 300 MG CAPSULE PO SCH ×3 (05:15→21:39)
[2018-06-19 05:22] LABS: PROTHROMBIN TIME 20.8 SEC (11.4-15.4)
[2018-06-19 05:23] LABS: PARTIAL THROMBOPLASTIN TIME 33.9 SEC (23.5-35.8)
[2018-06-19 05:36] LABS: ABSOLUTE EOSINOPHILS # (AUTO) 0.1 10^3/uL (0.0-0.6); ABSOLUTE LYMPHOCYTES (AUTO) 0.5 10^3/uL (0.5-4.7); ABSOLUTE MONOCYTES (AUTO) 0.2 10^3/uL (0.1-1.4); ABSOLUTE NEUT (AUTO) 1.8 10^3/uL (1.7-8.2); BASOPHILS % (AUTO) 0.9 % (0-2); EOSINOPHILS % (AUTO) 3.4 % (0-6); HEMATOCRIT 31.9 % (37.9-51.0); HEMOGLOBIN 10.2 g/dL (13.5-17.0); LYMPHOCYTES % (AUTO) 19.6 % (13-45); MEAN CORPUSCULAR HGB CONC 31.9 g/dL (32.0-36.0); MEAN CORPUSCULAR VOLUME 72 fl (80-97); MONOCYTES % (AUTO) 9.2 % (3-13); RED BLOOD COUNT 4.42 10^6/uL (4.35-5.55); RED CELL DISTRIBUTION WIDTH 23.8 % (11.5-14.0); SEGMENTED NEUTROPHILS % (AUTO) 66.9 % (42-78); TOTAL CELLS COUNTED % (AUTO) 100 %; WHITE BLOOD COUNT 2.7 10^3/uL (4.0-10.5)
[2018-06-19 05:47] LABS: ALANINE AMINOTRANSFERASE 58 U/L (21-72); ALBUMIN 3.1 g/dL (3.5-5.0); ALKALINE PHOSPHATASE 80 U/L (38-126); ANION GAP 10 (5-19); ASPARTATE AMINO TRANSFERASE 148 U/L (17-59); BILIRUBIN,DIRECT 4.8 mg/dL (0.0-0.4); BILIRUBIN,TOTAL 6.2 mg/dL (0.2-1.3); BLOOD UREA NITROGEN 12 mg/dL (7-20); CALCIUM 8.7 mg/dL (8.4-10.2); CARBON DIOXIDE 23 mmol/L (22-30); CHLORIDE 106 mmol/L (98-107); CHOLESTEROL 162.23 mg/dL (0-200); GLUCOSE 176 mg/dL (75-110); PHOSPHORUS 4.2 mg/dL (2.5-4.5); POTASSIUM 3.3 mmol/L (3.6-5.0); SODIUM 138.8 mmol/L (137-145); TOTAL PROTEIN 7.2 g/dL (6.3-8.2); TRIGLYCERIDES 125 mg/dL (<150)
[2018-06-19 05:58] LABS: DIRECT LDL 108 mg/dL (<100)
[2018-06-19 06:01] LABS: PLATELET COUNT 102 10^3/uL (150-450)
[2018-06-19] MEDS: NORMAL SALINE 1000 ML 1,000 ML IV PRN ×2 (07:49→15:45)
[2018-06-19] MEDS: INSULIN LISPRO 100 UNIT/ML 3 ML VIAL SUBCUT PRN ×2 (07:54→21:49)
[2018-06-19] MEDS ORDERED: LIDOCAINE 5% (700 MG) TRANSDERMAL ADH..PATCH TP SCH (10:00)
[2018-06-19] MEDS: THIAMINE HCL 100 MG TABLET PO SCH (10:27)
[2018-06-19] MEDS: SPIRONOLACTONE 25 MG TABLET PO SCH (10:28)
[2018-06-19] MEDS: FUROSEMIDE 40 MG TABLET PO SCH (10:28)
[2018-06-19] MEDS: FOLIC ACID 1 MG TABLET PO SCH (10:28)
[2018-06-19] MEDS: DOCUSATE SODIUM 100 MG CAPSULE PO SCH (10:28)
[2018-06-19] MEDS: TRAMADOL HCL 50 MG TABLET PO PRN (11:01)
[2018-06-19] MEDS ORDERED: POTASSIUM CHLORIDE 10 MEQ CAPSULE.ER PO ONE (12:00)
[2018-06-19] MEDS: CEFTRIAXONE SODIUM 1,000 MG in DEXTROSE 5%-WATER 50 ML IV SCH (17:33)
[2018-06-19] MEDS: TAMSULOSIN HCL 0.4 MG CAP.SR.24H PO SCH (17:37)
--- NOTE | 2018-06-19 19:15 | PDOC PROGRESS REPORT ---
Subjective Progress Note for:: 06/19/18 Subjective:: ELIS GRIGGS is a 67 year old male with a past medical history of end-stage liver disease, hepatitis C, DM type II, neuropathy, hypertension, GERD, depression, tobacco dependence, alcohol dependence, and drug abuse (patient reports that he discontinued tobacco, alcohol, recreational drugs 3 months ago). Patient is mostly cooperative but seems to have little ability to complete ADL. Nursing reports this has been his baseline since being admitted. He admits to e felisha and tobaccoo abuse which appears extensive from past notes. He has no complaints. His abdomen is quite distended. He is eating, but does require assistance. Reason For Visit: UTI,DEEDEE,END STAGE LIVER DISEASE Physical Exam Vital Signs: Temp Pulse Resp BP Pulse Ox 98.9 F 109 H 16 140/85 H 95 06/19/18 15:44 06/19/18 15:44 06/19/18 15:44 06/19/18 15:44 06/19/18 15:44 Intake & Output 06/18/18 06/19/18 06/20/18 06:59 06:59 06:59 Intake Total 1287 1396 Output Total 300 700 Balance 987 696 Weight 129.3 kg 129.3 kg General appearance: PRESENT: no acute distress Head exam: PRESENT: atraumatic Ear exam: PRESENT: normal external ear exam Mouth exam: PRESENT: moist, neck supple, tongue midline Respiratory exam: PRESENT: decreased breath sounds, prolonged expiratory phas Cardiovascular exam: PRESENT: RRR, +S1, +S2 GI/Abdominal exam: PRESENT: ascites, distended, other - tense Rectal exam: PRESENT: deferred Extremities exam: PRESENT: +1 edema - BLLE Neurological exam: PRESENT: alert, altered, awake, oriented to person, oriented to place Psychiatric exam: PRESENT: flat affect Results Laboratory Results: 06/19/18 04:30 06/19/18 04:30 06/19/18 06/19/18 06/19/18 04:30 04:30 04:30 WBC 2.7 L RBC 4.42 Hgb 10.2 L Hct 31.9 L MCV 72 L MCH 23.0 L MCHC 31.9 L RDW 23.8 H Plt Count 102 L Seg Neutrophils % 66.9 Lymphocytes % 19.6 Monocytes % 9.2 Eosinophils % 3.4 Basophils % 0.9 Absolute Neutrophils 1.8 Absolute Lymphocytes 0.5 Absolute Monocytes 0.2 Absolute Eosinophils 0.1 Absolute Basophils 0.0 Sodium 138.8 Potassium 3.3 L Chloride 106 Carbon Dioxide 23 Anion Gap 10 BUN 12 Creatinine 1.23 Est GFR ( Amer) > 60 Est GFR (Non-Af Amer) 59 L Glucose 176 H Calcium 8.7 Phosphorus 4.2 Magnesium 1.6 Total Bilirubin 6.2 H AST 148 H ALT 58 Alkaline Phosphatase 80 Total Protein 7.2 Albumin 3.1 L Triglycerides 125 Cholesterol 162.23 LDL Cholesterol Direct 108 H VLDL Cholesterol 25.0 HDL Cholesterol 12 L TSH 2.29 Impressions: Knee X-Ray 06/18/18 11:46 IMPRESSION: Degenerative changes without evidence of fracture. Assessment & Plan - Time Time Spent with patient: 25-34 minutes Smoking Cessation Education: 3 to 10 minutes - Inpatient Certification Based on my medical assessment, after consideration of the patient's comorbidities, presenting symptoms, or acuity I expect that the services needed warrant INPATIENT care.: Yes I certify that my determination is in accordance with my understanding of Medicare's requirements for reasonable and necessary INPATIENT services [42 CFR 412.3e].: Yes - Plan Summary Plan Summary: - Diagnosis (1) Acute kidney injury Is this a current diagnosis for this admission?: Yes Plan: Patient is noted to have an acute kidney injury with a creatinine of 1.34 (up from baseline of 0.8); likely prerenal secondary to poor p.o. intake as the patient reports that he has had poor p.o. intake times 5 days. However, he also reports difficulty urinating in patient with known BPH. -continue IVF -Encourage p.o. fluids. -We will bladder scan and insert Polk catheter for evidence of urinary retention. -Consider need for renal ultrasound. -Resume his home dose Flomax. -Strict I&O's. (2) Urinary tract infection Qualifiers: Urinary tract infection type: acute cystitis Hematuria presence: with hematuria Qualified Code(s): N30.01 - Acute cystitis with hematuria Is this a current diagnosis for this admission?: Yes Plan: -suggestive on UA -cultures negative @ 24 hours -continue IV Rocephin; will adjust as cultures result. -Continue IV maintenance fluids. (3) End-stage liver disease Is this a current diagnosis for this admission?: Yes Plan: Patient with end-stage liver disease secondary to hepatitis C and alcohol abuse/dependence.Meld score 23. -spironolactone 100 mg and Lasix 40 mg for ascites. -Hold on propanolol; consider initiating if blood pressures tolerate. Per patient, no history of esophageal varices/GI bleed. -Will arrange for a therapeutic paracentesis WED. This will be his first. -Palliative care consultation. -Registered dietitian is consulted. -Discharge plans are consulted; at minimum, patient will require home health nursing at discharge. (4) Anemia of chronic disease Is this a current diagnosis for this admission?: Yes Plan: -At baseline with hemoglobin of 10.3. -No evidence of active bleeding. -Start multivitamin with iron supplementation. -Registered dietitian is consulted; appreciate their evaluation recommendations. (5) Diabetes Qualifiers: Diabetes mellitus type: type 2 Diabetes mellitus termite treater insulin use: without mcfp use Diabetes mellitus complication status: with kidney complications Diabetes mellitus complication detail: with nephropathy Qualified Code(s): E11.21 - Type 2 diabetes mellitus with diabetic nephropathy Is this a current diagnosis for this admission?: Yes Plan: -a1c 5.5 (6) Thrombocytopenia Is this a current diagnosis for this admission?: Yes Plan: -Secondary to end-stage liver disease. -Continue daily aspirin 81 mg. -Reilly/SCDS for DVT prophylaxis; hold on heparin. Disposition: It does not appear the patient would be able to meet ADL's at home alone.
[2018-06-19] MEDS: AMITRIPTYLINE HCL 50 MG TABLET PO SCH (21:39)
[2018-06-19] MEDS: LIDOCAINE 5% (700 MG) TRANSDERMAL ADH..PATCH TP SCH (21:39)
[2018-06-19] MEDS: POTASSIUM CHLORIDE 10 MEQ CAPSULE.ER PO SCH (21:40)
[2018-06-20] MEDS: NORMAL SALINE 1000 ML 1,000 ML IV PRN ×3 (00:05→10:17)
[2018-06-20] MEDS: POTASSIUM CHLORIDE 10 MEQ CAPSULE.ER PO SCH ×3 (05:03→22:16)
[2018-06-20] MEDS: GABAPENTIN 300 MG CAPSULE PO SCH (05:04)
[2018-06-20] MEDS: LANSOPRAZOLE 15 MG TAB.RAP.DR PO SCH ×2 (05:04→16:48)
[2018-06-20 06:08] LABS: PROTHROMBIN TIME 20.8 SEC (11.4-15.4)
[2018-06-20 06:20] LABS: ALANINE AMINOTRANSFERASE 55 U/L (21-72); ALBUMIN 2.9 g/dL (3.5-5.0); ALKALINE PHOSPHATASE 75 U/L (38-126); ANION GAP 7 (5-19); ASPARTATE AMINO TRANSFERASE 136 U/L (17-59); BILIRUBIN,DIRECT 4.6 mg/dL (0.0-0.4); BILIRUBIN,TOTAL 6.2 mg/dL (0.2-1.3); BLOOD UREA NITROGEN 12 mg/dL (7-20); CALCIUM 8.4 mg/dL (8.4-10.2); CARBON DIOXIDE 24 mmol/L (22-30); CHLORIDE 110 mmol/L (98-107); GLUCOSE 154 mg/dL (75-110); POTASSIUM 3.7 mmol/L (3.6-5.0); SODIUM 140.7 mmol/L (137-145)
[2018-06-20 08:00] LABS: HEMATOCRIT 32.4 % (37.9-51.0); HEMOGLOBIN 10.3 g/dL (13.5-17.0); MEAN CORPUSCULAR HEMOGLOBIN 22.8 pg (27.0-33.4); MEAN CORPUSCULAR HGB CONC 31.8 g/dL (32.0-36.0); MEAN CORPUSCULAR VOLUME 72 fl (80-97); PLATELET COUNT 103 10^3/uL (150-450); RED CELL DISTRIBUTION WIDTH 23.6 % (11.5-14.0)
[2018-06-20] MEDS ORDERED: LORAZEPAM 0.5 MG TABLET PO PRN (08:54)
[2018-06-20 09:09] LABS: ABSOLUTE LYMPHOCYTES# (MANUAL) 0.8 10^3/uL (0.5-4.7); ABSOLUTE MONOCYTES # (MANUAL) 0.2 10^3/uL (0.1-1.4); ABSOLUTE NEUTROPHILS# (MANUAL) 1.9 10^3/uL (1.7-8.2); BAND NEUTROPHILS % (MANUAL) 1 % (3-5); BASOPHILS % (MANUAL) 2 % (0-2); EOSINOPHILS % (MANUAL) 1 % (0-6); HYPOCHROMASIA 1+; LYMPHOCYTES % (MANUAL) 27 % (13-45); MONOCYTES % (MANUAL) 5 % (3-13); OVALOCYTES 1+; PLATELET COMMENT DECREASED; POIKILOCYTOSIS 2+; POLYCHROMASIA 1+; SCHISTOCYTES SLIGHT; SEGMENTED NEUTROPHILS % (MAN) 63 % (42-78); TOTAL CELLS COUNTED 100; TOXIC GRANULATION SLIGHT; TOXIC VACUOLATION PRESENT
[2018-06-20] MEDS: IPRATROPIUM/ALBUTEROL 0.5-2.5 MG/3 ML AMPUL NEB PRN (09:39)
--- NOTE | 2018-06-20 09:43 | PDOC PROGRESS REPORT ---
Subjective Progress Note for:: 06/20/18 Subjective:: ELIS GRIGGS is a 67 year old male with a past medical history of end-stage liver disease, hepatitis C, DM type II, neuropathy, hypertension, GERD, depression, tobacco dependence, alcohol dependence, tatum's palsy and drug abuse (patient reports that he discontinued tobacco, alcohol, recreational drugs 2-3 months ago). Mr Griggs is more awake and oriented today. He is able to provide information and interact in the physical exam. He reports lack of appetite prior to coming to hospital, and not eating for several days. He reports chronic issues with falls related to chronic generalized weakness that have worsened over the past month. His appeitte has improved since admission. He desires to return to his place of residence and live alone, though he does admit chronic trouble completing daily activities. He denies F/C/SOB. His urine bag is filled with orange-emerita urine, but the urine in the stanton is a light ferraro color. Reason For Visit: UTI,DEEDEE,END STAGE LIVER DISEASE, FALLS Physical Exam Vital Signs: Temp Pulse Resp BP Pulse Ox 98.4 F 100 22 H 151/83 H 99 06/20/18 07:46 06/20/18 07:46 06/20/18 07:46 06/20/18 07:46 06/20/18 07:46 Intake & Output 06/19/18 06/20/18 06/21/18 06:59 06:59 06:59 Intake Total 1287 2596 954 Output Total 300 920 Balance 987 1676 954 Weight 129.3 kg 130.2 kg General appearance: PRESENT: no acute distress Head exam: PRESENT: atraumatic, other - chronic right sided facial droop. right eye chronically open. Eye exam: PRESENT: conjunctiva pink, EOMI, PERRLA, scleral icterus Ear exam: PRESENT: normal external ear exam Mouth exam: PRESENT: moist, tongue midline Neck exam: ABSENT: carotid bruit, JVD, lymphadenopathy, thyromegaly Respiratory exam: PRESENT: unlabored, other - good air flow, decreased breathe sounds at bases Cardiovascular exam: PRESENT: RRR, +S1, +S2 Pulses: PRESENT: normal dorsalis pedis pul Vascular exam: PRESENT: normal capillary refill GI/Abdominal exam: PRESENT: ascites, distended, firm Rectal exam: PRESENT: deferred Extremities exam: PRESENT: pedal edema, +1 edema, other - mild swelling BLLE and BL knees. Strength 4-5/5 BLUE, 3-4/5 BLLE. LUE and LLE may slightly stronger than right side. Neurological exam: PRESENT: alert, altered, awake, oriented to person, oriented to place, oriented to situation, other - gait not assessed Psychiatric exam: PRESENT: flat affect Skin exam: PRESENT: dry, intact, warm. ABSENT: cyanosis, rash Results Laboratory Results: 06/20/18 07:47 06/20/18 05:48 06/20/18 06/20/18 06/20/18 05:48 05:48 07:47 WBC Cancelled 3.0 L RBC Cancelled 4.50 Hgb Cancelled 10.3 L Hct Cancelled 32.4 L MCV Cancelled 72 L MCH Cancelled 22.8 L MCHC Cancelled 31.8 L RDW Cancelled 23.6 H Plt Count Cancelled 103 L Seg Neutrophils % Cancelled Not Reportable Lymphocytes % Cancelled Not Reportable Monocytes % Cancelled Not Reportable Eosinophils % Cancelled Not Reportable Basophils % Cancelled Not Reportable Absolute Neutrophils Cancelled Not Reportable Absolute Lymphocytes Cancelled Not Reportable Absolute Monocytes Cancelled Not Reportable Absolute Eosinophils Cancelled Not Reportable Absolute Basophils Cancelled Not Reportable Sodium 140.7 Potassium 3.7 Chloride 110 H Carbon Dioxide 24 Anion Gap 7 BUN 12 Creatinine 1.16 Est GFR ( Amer) > 60 Est GFR (Non-Af Amer) > 60 Glucose 154 H Calcium 8.4 Total Bilirubin 6.2 H AST 136 H ALT 55 Alkaline Phosphatase 75 Total Protein 7.0 Albumin 2.9 L 06/18/18 18:05 Clean Catch Midstream Urine Culture - Final NO GROWTH 2 DAYS Impressions: Knee X-Ray 06/18/18 11:46 IMPRESSION: Degenerative changes without evidence of fracture. Assessment & Plan - Diagnosis (1) Tatum's palsy Is this a current diagnosis for this admission?: Yes (2) Cirrhosis of liver Is this a current diagnosis for this admission?: Yes (3) End-stage liver disease Is this a current diagnosis for this admission?: Yes (4) Urinary tract infection Qualifiers: Urinary tract infection type: acute cystitis Hematuria presence: with hematuria Qualified Code(s): N30.01 - Acute cystitis with hematuria Is this a current diagnosis for this admission?: Yes (5) Acute kidney injury Is this a current diagnosis for this admission?: Yes (6) Hepatitis C Qualifiers: Viral hepatitis chronicity: chronic Hepatic coma status: without hepatic coma Qualified Code(s): B18.2 - Chronic viral hepatitis C Is this a current diagnosis for this admission?: Yes - Time Time Spent with patient: 25-34 minutes Smoking Cessation Education: 3 to 10 minutes Medications reviewed and adjusted accordingly: Yes - Inpatient Certification Based on my medical assessment, after consideration of the patient's comorbidities, presenting symptoms, or acuity I expect that the services needed warrant INPATIENT care.: Yes I certify that my determination is in accordance with my understanding of Medicare's requirements for reasonable and necessary INPATIENT services [42 CFR 412.3e].: Yes - Plan Summary Plan Summary: (1) Acute kidney injury Is this a current diagnosis for this admission?: Yes Plan: -improved with Stanton insertion. Hematuria appears to be improving. Monitor. Could be related to UTI vs traumatic cath. -CRE is trending down. 1.34 - > 1.16 -IVF lowered to 75 cc/hr. Plan to stop IVF in next 24 hours -History of BPH. Resume his home dose Flomax. -Strict I&O's. Daily weights. Up 3kg since admission. -Consider need for renal ultrasound. (2) Urinary tract infection Qualifiers: Urinary tract infection type: acute cystitis Hematuria presence: with hematuria Qualified Code(s): N30.01 - Acute cystitis with hematuria Is this a current diagnosis for this admission?: Yes Plan: -UA was suggestive, however cultures negative @ 24 hours -continue IV Rocephin; will adjust as cultures result. abx started on 06/18. -blood cultures negative x 24 hours (3) End-stage liver disease Is this a current diagnosis for this admission?: Yes Plan: Patient with end-stage liver disease secondary to hepatitis C and alcohol abuse/dependence. Meld score 23. -ALT remains elevated. Normal AST. Albumin 2.9. INR 1.7 -spironolactone 100 mg and Lasix 40 mg for ascites. -Hold on propanolol; consider initiating if blood pressures tolerate. Per patient, no history of esophageal varices/GI bleed. -Will arrange for a therapeutic paracentesis WED. This will be his first. -Palliative care consultation. -Registered dietitian is consulted. -Discharge plans are consulted; at minimum, patient will require home health nursing at discharge. (4) Anemia of chronic disease Is this a current diagnosis for this admission?: Yes Plan: -At baseline with hemoglobin of 10.3. -No evidence of active bleeding, other than hematuria which appears to be resolving. -continue multivitamin with iron supplementation. -Registered dietitian is consulted; appreciate their evaluation recommendations. (5) Diabetes Qualifiers: Diabetes mellitus type: type 2 Diabetes mellitus game [employer] attendant insulin use: without [facility] use Diabetes mellitus complication status: with kidney complications Diabetes mellitus complication detail: with nephropathy Qualified Code(s): E11.21 - Type 2 diabetes mellitus with diabetic nephropathy Is this a current diagnosis for this admission?: Yes Plan: -a1c 5.5 (6) Thrombocytopenia Is this a current diagnosis for this admission?: Yes Plan: -Secondary to end-stage liver disease. -Continue daily aspirin 81 mg. -Reilly/SCDS for DVT prophylaxis; hold on heparin. (7) Electrolyte abnormalities -started on po potassium daily. monitor K. aware of lasix and spirnolactone -magnesium on lowered end of normal. daily supplementation. Disposition: It does not appear the patient would be able to meet ADL's at home alone. Code status remains DNR.
[2018-06-20] MEDS: THIAMINE HCL 100 MG TABLET PO SCH (10:17)
[2018-06-20] MEDS: MAGNESIUM OXIDE 400 MG TABLET PO SCH ×2 (10:17→17:31)
[2018-06-20] MEDS: SPIRONOLACTONE 25 MG TABLET PO SCH (10:17)
[2018-06-20] MEDS: FUROSEMIDE 40 MG TABLET PO SCH (10:17)
[2018-06-20] MEDS: DOCUSATE SODIUM 100 MG CAPSULE PO SCH (10:18)
[2018-06-20] MEDS: FOLIC ACID 1 MG TABLET PO SCH (10:18)
[2018-06-20] MEDS ORDERED: LIDOCAINE 1% INJ-PF (10 MG/ML) 30 ML SDV ONE (10:40)
[2018-06-20 11:01] LABS: FOLATE 8.09 ng/mL (>2.76)
--- NOTE | 2018-06-20 11:46 | RADIOLOGY REPORT (SQ) ---
EXAM DESCRIPTION: U/S ABD PARACENTESIS COMPLETED DATE/TIME: 06/20/2018 11:26 am REASON FOR STUDY: ASCITES COMPARISON None. LIMITATIONS: NO PRIOR PARACENTESIS PROCEDURE: After obtaining informed consent, the patient was brought to the ultrasound suite. The p rocedure was performed with the patient on a gurney. Ultrasound was used to identify a prominent poc ket of ascites in the RIGHT LOWER QUADRANT. An appropriate access site was selected. The patient wa s prepped and draped in usual sterile fashion. The access site was anesthetized with 7 mL 1% lidoca ine. A Cmxl-C-Brzfwciu needle was advanced into the fluid. After aspiration of fluid the needle, th e catheter was advanced off the needle into the fluid. A total of 3,600 mL of clear straw-colored fl uid was removed. The patient tolerated the procedure well left the department in satisfactory conditi on. Fluid was sent for cell count, Gram stain and culture and sensitivity. IMPRESSION: Successful ultrasound-guided diagnostic and therapeutic paracentesis COMMENT: Patient medication list reviewed: Yes- Quality ID# [id number]:Eligible professional attests to doc umenting in the medical record they obtained, updated, or reviewed the patient's current medications. TECHNICAL DOCUMENTATION: JOB ID: [id number] [employer]- All Rights Reserved Reading location - IP/workstation name: [email or web address]
[2018-06-20] MEDS: INSULIN LISPRO 100 UNIT/ML 3 ML VIAL SUBCUT PRN ×2 (11:50→22:16)
[2018-06-20] MEDS: GABAPENTIN 100 MG CAPSULE PO SCH ×2 (14:47→22:15)
[2018-06-20] MEDS: CEFTRIAXONE SODIUM 1,000 MG in DEXTROSE 5%-WATER 50 ML IV SCH (17:31)
[2018-06-20] MEDS: TAMSULOSIN HCL 0.4 MG CAP.SR.24H PO SCH (17:31)
[2018-06-20] MEDS: LIDOCAINE 5% (700 MG) TRANSDERMAL ADH..PATCH TP SCH (22:15)
[2018-06-20] MEDS: AMITRIPTYLINE HCL 50 MG TABLET PO SCH (22:15)
[2018-06-21] MEDS ORDERED: LACTULOSE SYRUP 20 GM/30 ML UDCUP PO ONE (00:30)
[2018-06-21] MEDS: NORMAL SALINE 1000 ML 1,000 ML IV PRN (01:03)
[2018-06-21 05:10] LABS: MEAN CORPUSCULAR HGB CONC 32.1 g/dL (32.0-36.0); MEAN CORPUSCULAR VOLUME 72 fl (80-97); RED BLOOD COUNT 4.34 10^6/uL (4.35-5.55); RED CELL DISTRIBUTION WIDTH 23.2 % (11.5-14.0); WHITE BLOOD COUNT 2.6 10^3/uL (4.0-10.5)
[2018-06-21 05:21] LABS: ALANINE AMINOTRANSFERASE 52 U/L (21-72); ALBUMIN 2.8 g/dL (3.5-5.0); ALKALINE PHOSPHATASE 71 U/L (38-126); ANION GAP 10 (5-19); ASPARTATE AMINO TRANSFERASE 123 U/L (17-59); BILIRUBIN,DIRECT 4.1 mg/dL (0.0-0.4); BILIRUBIN,TOTAL 5.8 mg/dL (0.2-1.3); BLOOD UREA NITROGEN 12 mg/dL (7-20); CALCIUM 8.3 mg/dL (8.4-10.2); CARBON DIOXIDE 21 mmol/L (22-30); CHLORIDE 109 mmol/L (98-107); GLUCOSE 156 mg/dL (75-110); SODIUM 140.4 mmol/L (137-145); TOTAL PROTEIN 6.7 g/dL (6.3-8.2)
[2018-06-21] MEDS: LANSOPRAZOLE 15 MG TAB.RAP.DR PO SCH ×2 (05:53→16:33)
[2018-06-21] MEDS: POTASSIUM CHLORIDE 10 MEQ CAPSULE.ER PO SCH ×3 (05:53→22:14)
[2018-06-21] MEDS: GABAPENTIN 100 MG CAPSULE PO SCH ×3 (05:53→22:14)
[2018-06-21 06:09] LABS: PLATELET COUNT 85 10^3/uL (150-450)
[2018-06-21] MEDS: FUROSEMIDE 40 MG TABLET PO SCH (09:38)
[2018-06-21] MEDS: FOLIC ACID 1 MG TABLET PO SCH (09:38)
[2018-06-21] MEDS: THIAMINE HCL 100 MG TABLET PO SCH (09:38)
[2018-06-21] MEDS: MAGNESIUM OXIDE 400 MG TABLET PO SCH ×2 (09:38→18:09)
[2018-06-21] MEDS: DOCUSATE SODIUM 100 MG CAPSULE PO SCH (09:39)
[2018-06-21] MEDS: SPIRONOLACTONE 25 MG TABLET PO SCH (09:39)
[2018-06-21] MEDS ORDERED: LACTULOSE SYRUP 20 GM/30 ML UDCUP PO SCH (10:00)
[2018-06-21] MEDS: INSULIN LISPRO 100 UNIT/ML 3 ML VIAL SUBCUT PRN ×3 (12:29→22:15)
[2018-06-21] MEDS: TAMSULOSIN HCL 0.4 MG CAP.SR.24H PO SCH (18:09)
[2018-06-21] MEDS: CEFTRIAXONE SODIUM 1,000 MG in DEXTROSE 5%-WATER 50 ML IV SCH (18:09)
--- NOTE | 2018-06-21 19:12 | PDOC PROGRESS REPORT ---
Subjective Progress Note for:: 06/21/18 Subjective:: ELIS GRIGGS is a 67 year old male with a past medical history of end-stage liver disease, hepatitis C, DM type II, neuropathy, hypertension, GERD, depression, tobacco dependence, alcohol dependence, tatum's palsy and drug abuse (patient reports that he discontinued tobacco, alcohol, recreational drugs 2-3 months ago). Mr Griggs is status post paracentesis yesterday evening. They removed 3.6 L. His ammonia was elevated this morning. He does however seem to be quite lucid. He is quite kind and cooperative. He understands that he will be placed on a fluid restriction now since his acute kidney injury has resolved. He reports improvement in his breathing since the paracentesis. He also reports less abdominal fullness and improved appetite. Speech therapy evaluated and may diet recommendations today. Overall he continues to improve, currently shows no signs of systemic infection. Reason For Visit: UTI,DEEDEE,END STAGE LIVER DISEASE Physical Exam Vital Signs: Temp Pulse Resp BP Pulse Ox 99.8 F 120 H 22 H 153/81 H 94 06/21/18 15:59 06/21/18 15:59 06/21/18 15:59 06/21/18 15:59 06/21/18 15:59 Intake & Output 06/20/18 06/21/18 06/22/18 06:59 06:59 06:59 Intake Total 2596 3642 1236 Output Total 920 1300 Balance 1676 2342 1236 Weight 130.2 kg 128.1 kg General appearance: PRESENT: no acute distress, cooperative, well-developed, well-nourished Head exam: PRESENT: atraumatic, normocephalic, other - Right-sided facial paralysis. Inability to close right eye. Eye exam: PRESENT: EOMI, PERRLA, scleral icterus Ear exam: PRESENT: normal external ear exam Mouth exam: PRESENT: moist, tongue midline Neck exam: ABSENT: carotid bruit, JVD, lymphadenopathy, thyromegaly Respiratory exam: PRESENT: other - Good airflow bilateral. Some coarseness.. ABSENT: rales, rhonchi, wheezes Cardiovascular exam: PRESENT: RRR. ABSENT: diastolic murmur, rubs, systolic murmur Pulses: PRESENT: normal dorsalis pedis pul Vascular exam: PRESENT: normal capillary refill GI/Abdominal exam: PRESENT: normal bowel sounds. ABSENT: distended - Still some distention. Mildly firm. Nontender, guarding, mass, organolmegaly, rebound, tenderness Rectal exam: PRESENT: deferred Extremities exam: PRESENT: full ROM, +1 edema - BL lower extremity's.. ABSENT: calf tenderness, clubbing, pedal edema Musculoskeletal exam: PRESENT: other - 4 out of 5 strength bilateral upper and lower extremities. Normal sensation. Overall poor coordination. Neurological exam: PRESENT: alert, awake, oriented to person, oriented to place, oriented to situation, CN II-XII grossly intact. ABSENT: motor sensory deficit Psychiatric exam: PRESENT: appropriate affect, normal mood. ABSENT: homicidal ideation, suicidal ideation Skin exam: PRESENT: dry, intact, warm. ABSENT: cyanosis, rash Results Laboratory Results: 06/21/18 04:46 06/21/18 04:46 06/21/18 06/21/18 06/21/18 04:46 04:46 04:46 WBC 2.6 L RBC 4.34 L Hgb 10.0 L Hct 31.0 L MCV 72 L MCH 23.0 L MCHC 32.1 RDW 23.2 H Plt Count 85 L Sodium 140.4 Potassium 4.0 Chloride 109 H Carbon Dioxide 21 L Anion Gap 10 BUN 12 Creatinine 0.98 Est GFR ( Amer) > 60 Est GFR (Non-Af Amer) > 60 Glucose 156 H Calcium 8.3 L Total Bilirubin 5.8 H AST 123 H ALT 52 Alkaline Phosphatase 71 Ammonia 52.3 H Total Protein 6.7 Albumin 2.8 L Impressions: Knee X-Ray 06/18/18 11:46 IMPRESSION: Degenerative changes without evidence of fracture. Paracentesis Ultrasound 06/20/18 16:17 IMPRESSION: Successful ultrasound-guided diagnostic and therapeutic paracentesis Assessment & Plan - Diagnosis (1) Tatum's palsy Is this a current diagnosis for this admission?: Yes (2) Cirrhosis of liver Is this a current diagnosis for this admission?: Yes (3) End-stage liver disease Is this a current diagnosis for this admission?: Yes (4) Urinary tract infection Qualifiers: Urinary tract infection type: acute cystitis Hematuria presence: with hematuria Qualified Code(s): N30.01 - Acute cystitis with hematuria Is this a current diagnosis for this admission?: Yes (5) Acute kidney injury Is this a current diagnosis for this admission?: Yes (6) Hepatitis C Qualifiers: Viral hepatitis chronicity: chronic Hepatic coma status: without hepatic coma Qualified Code(s): B18.2 - Chronic viral hepatitis C Is this a current diagnosis for this admission?: Yes - Time Time Spent with patient: 25-34 minutes Smoking Cessation Education: 3 to 10 minutes - Inpatient Certification Based on my medical assessment, after consideration of the patient's comorbidities, presenting symptoms, or acuity I expect that the services needed warrant INPATIENT care.: Yes I certify that my determination is in accordance with my understanding of Medicare's requirements for reasonable and necessary INPATIENT services [42 CFR 412.3e].: Yes - Plan Summary Plan Summary: (1) Acute kidney injury Is this a current diagnosis for this admission?: Yes Plan: -improved with [place] insertion. Hematuria appears to be improving. Monitor. Could be related to UTI vs traumatic cath and liver failure -CRE back to baseline -Stop IV fluids -History of BPH. Resume his home dose Flomax. -Strict I&O's. Daily weights. (2) Urinary tract infection Qualifiers: Urinary tract infection type: acute cystitis Hematuria presence: with hematuria Qualified Code(s): N30.01 - Acute cystitis with hematuria Is this a current diagnosis for this admission?: Yes Plan: -UA was suggestive, however cultures negative @ 24 hours -continue IV Rocephin; will adjust as cultures result. abx started on 06/18. -blood cultures negative (3) End-stage liver disease Is this a current diagnosis for this admission?: Yes Plan: Patient with end-stage liver disease secondary to hepatitis C and alcohol abuse/dependence. Meld score 23. -Likely cause of low albumin, elevated INR, and elevated bilirubin counts. -spironolactone 100 mg daily -Lasix 40 mg daily -Fluid restriction 1.5 L daily. -Hold on propanolol; consider initiating if blood pressures tolerate. Per patient, no history of esophageal varices/GI bleed. -Paracentesis 1226 removed a 3.6 L. Culture and cytology pending. -Palliative care consultation made on admission. -Registered dietitian is consulted. -Discharge plans are consulted; at minimum, patient will require home health nursing at discharge. (4) Anemia of chronic disease Is this a current diagnosis for this admission?: Yes Plan: -At baseline with hemoglobin of 10.3. -No evidence of active bleeding, other than hematuria which appears to be resolving. -continue multivitamin with iron supplementation. -Registered dietitian is consulted; appreciate their evaluation recommendations. (5) Diabetes Qualifiers: Diabetes mellitus type: type 2 Diabetes mellitus [facility] insulin use: without [facility] use Diabetes mellitus complication status: with kidney complications Diabetes mellitus complication detail: with nephropathy Qualified Code(s): E11.21 - Type 2 diabetes mellitus with diabetic nephropathy Is this a current diagnosis for this admission?: Yes Plan: -a1c 5.5 (6) Thrombocytopenia Is this a current diagnosis for this admission?: Yes Plan: -Secondary to end-stage liver disease. -Continue daily aspirin 81 mg. -Reilly/SCDS for DVT prophylaxis; hold on heparin. (7) Electrolyte abnormalities -started on po potassium daily. monitor K. aware of lasix and spirnolactone -magnesium on lowered end of normal. daily supplementation. (8) elevated ammonia -Related to end-stage liver disease. Continue daily check of ammonia. -Increase lactulose to every 8 hours. (9)Tatum's palsy -Evaluated by speech therapy today. Diet changes made according to the recommendations. Disposition: It does not appear the patient would be able to meet ADL's at home alone. Code status remains DNR. customer consulting manager is aware the patient will need assistance on discharge.
[2018-06-21] MEDS: AMITRIPTYLINE HCL 50 MG TABLET PO SCH (22:14)
[2018-06-21] MEDS: LIDOCAINE 5% (700 MG) TRANSDERMAL ADH..PATCH TP SCH (22:14)
[2018-06-21] MEDS: LACTULOSE SYRUP 20 GM/30 ML UDCUP PO SCH (22:23)
[2018-06-22] MEDS: LACTULOSE SYRUP 20 GM/30 ML UDCUP PO SCH ×3 (06:00→22:41)
[2018-06-22] MEDS: LANSOPRAZOLE 15 MG TAB.RAP.DR PO SCH ×2 (06:01→18:52)
[2018-06-22] MEDS: POTASSIUM CHLORIDE 10 MEQ CAPSULE.ER PO SCH ×3 (06:01→22:41)
[2018-06-22] MEDS: GABAPENTIN 100 MG CAPSULE PO SCH ×3 (06:01→22:40)
[2018-06-22 06:05] LABS: HEMATOCRIT 31.6 % (37.9-51.0); HEMOGLOBIN 10.1 g/dL (13.5-17.0); MEAN CORPUSCULAR HEMOGLOBIN 22.9 pg (27.0-33.4); MEAN CORPUSCULAR VOLUME 72 fl (80-97); PLATELET COUNT 106 10^3/uL (150-450); RED BLOOD COUNT 4.42 10^6/uL (4.35-5.55); RED CELL DISTRIBUTION WIDTH 23.3 % (11.5-14.0)
[2018-06-22 06:49] LABS: ALANINE AMINOTRANSFERASE 49 U/L (21-72); ALBUMIN 2.7 g/dL (3.5-5.0); ALKALINE PHOSPHATASE 73 U/L (38-126); ANION GAP 8 (5-19); ASPARTATE AMINO TRANSFERASE 122 U/L (17-59); BILIRUBIN,DIRECT 4.1 mg/dL (0.0-0.4); BILIRUBIN,TOTAL 5.9 mg/dL (0.2-1.3); BLOOD UREA NITROGEN 13 mg/dL (7-20); CALCIUM 8.4 mg/dL (8.4-10.2); CARBON DIOXIDE 22 mmol/L (22-30); CHLORIDE 109 mmol/L (98-107); GLUCOSE 156 mg/dL (75-110); POTASSIUM 4.1 mmol/L (3.6-5.0); SODIUM 139.4 mmol/L (137-145); TOTAL PROTEIN 6.6 g/dL (6.3-8.2)
[2018-06-22] MEDS: INSULIN LISPRO 100 UNIT/ML 3 ML VIAL SUBCUT PRN ×3 (09:58→22:41)
[2018-06-22] MEDS: THIAMINE HCL 100 MG TABLET PO SCH (10:00)
[2018-06-22] MEDS: FOLIC ACID 1 MG TABLET PO SCH (10:00)
[2018-06-22] MEDS: MAGNESIUM OXIDE 400 MG TABLET PO SCH ×2 (10:00→18:52)
[2018-06-22] MEDS: FUROSEMIDE 40 MG TABLET PO SCH (10:00)
[2018-06-22] MEDS: SPIRONOLACTONE 25 MG TABLET PO SCH (10:00)
[2018-06-22] MEDS: DOCUSATE SODIUM 100 MG CAPSULE PO SCH (10:01)
[2018-06-22] MEDS: TRAMADOL HCL 50 MG TABLET PO PRN (15:30)
--- NOTE | 2018-06-22 17:24 | PDOC PROGRESS REPORT ---
Subjective Progress Note for:: 06/22/18 Subjective:: ELIS GRIGGS is a 67 year old male with a past medical history of end-stage liver disease, hepatitis C, DM type II, neuropathy, hypertension, GERD, depression, tobacco dependence, alcohol dependence, tatum's palsy and drug abuse (patient reports that he discontinued tobacco, alcohol, recreational drugs 2-3 months ago). Mr Griggs reports doing better today. He continues to be weak. He cannot walk. His breathing has improved. His appetite is good, but he requires assistance due to risk of aspiration. He continues to have gross hematuria, but his hgb continues to hold in the same range. He is AAO to person, place, time, situation, president. He still wants to go home on d/c, but does admit he has little help/support, and would have difficulty performing daily tasks. Denies F/C/CP. Breathing improved since thoracentesis. Reason For Visit: UTI,DEEDEE,END STAGE LIVER DISEASE Physical Exam Vital Signs: Temp Pulse Resp BP Pulse Ox 99.6 F 116 H 15 162/85 H 92 06/22/18 10:57 06/22/18 14:00 06/22/18 12:17 06/22/18 10:57 06/22/18 12:17 Intake & Output 06/21/18 06/22/18 06/23/18 06:59 06:59 06:59 Intake Total 3642 1566 Output Total 1300 500 Balance 2342 1066 Weight 128.1 kg 128.6 kg General appearance: PRESENT: no acute distress, cooperative Head exam: PRESENT: atraumatic, other - Right-sided facial weakness. Right- sided facial droop. Inability to close right eye. Eye exam: PRESENT: PERRLA, scleral icterus Ear exam: PRESENT: normal external ear exam Mouth exam: PRESENT: moist, tongue midline Neck exam: ABSENT: carotid bruit, JVD, lymphadenopathy, thyromegaly Respiratory exam: PRESENT: other - Decreased breath sounds at the bases/Polk. Good airflow bilaterally. No wheeze appreciated.. ABSENT: rales, rhonchi, wheezes Cardiovascular exam: PRESENT: RRR. ABSENT: diastolic murmur, rubs, systolic murmur Pulses: PRESENT: normal dorsalis pedis pul Vascular exam: PRESENT: normal capillary refill GI/Abdominal exam: PRESENT: distended, normal bowel sounds, other - Tense. ABSENT: guarding, mass, organolmegaly, rebound, tenderness Rectal exam: PRESENT: deferred Extremities exam: PRESENT: pedal edema, other - Bilateral lower extremities 1+ edema. Strength in bilateral upper extremities is better than bilateral lower extremities. All four are 4-5+/5. ABSENT: calf tenderness Neurological exam: PRESENT: alert, awake, oriented to person, oriented to place, oriented to time, oriented to situation, CN II-XII grossly intact. ABSENT: motor sensory deficit Psychiatric exam: PRESENT: appropriate affect, normal mood. ABSENT: homicidal ideation, suicidal ideation Skin exam: PRESENT: dry, intact, warm. ABSENT: cyanosis, rash Results Laboratory Results: 06/22/18 05:48 06/22/18 05:48 06/22/18 06/22/18 06/22/18 05:48 05:48 05:48 WBC 4.0 RBC 4.42 Hgb 10.1 L Hct 31.6 L MCV 72 L MCH 22.9 L MCHC 32.0 RDW 23.3 H Plt Count 106 L Sodium 139.4 Potassium 4.1 Chloride 109 H Carbon Dioxide 22 Anion Gap 8 BUN 13 Creatinine 0.96 Est GFR ( Amer) > 60 Est GFR (Non-Af Amer) > 60 Glucose 156 H Calcium 8.4 Magnesium 1.6 Total Bilirubin 5.9 H AST 122 H ALT 49 Alkaline Phosphatase 73 Ammonia 31.5 Total Protein 6.6 Albumin 2.7 L Impressions: Knee X-Ray 06/18/18 11:46 IMPRESSION: Degenerative changes without evidence of fracture. Paracentesis Ultrasound 06/20/18 16:17 IMPRESSION: Successful ultrasound-guided diagnostic and therapeutic para centesis Assessment & Plan - Diagnosis (1) Tatum's palsy Is this a current diagnosis for this admission?: Yes (2) Cirrhosis of liver Is this a current diagnosis for this admission?: Yes (3) End-stage liver disease Is this a current diagnosis for this admission?: Yes (4) Urinary tract infection Qualifiers: Urinary tract infection type: acute cystitis Hematuria presence: with hematuria Qualified Code(s): N30.01 - Acute cystitis with hematuria Is this a current diagnosis for this admission?: Yes (5) Acute kidney injury Is this a current diagnosis for this admission?: Yes (6) Hepatitis C Qualifiers: Viral hepatitis chronicity: chronic Hepatic coma status: without hepatic coma Qualified Code(s): B18.2 - Chronic viral hepatitis C Is this a current diagnosis for this admission?: Yes - Time Time Spent with patient: 25-34 minutes Smoking Cessation Education: over 10 minutes Medications reviewed and adjusted accordingly: Yes - Inpatient Certification Based on my medical assessment, after consideration of the patient's comorbidities, presenting symptoms, or acuity I expect that the services needed warrant INPATIENT care.: Yes I certify that my determination is in accordance with my understanding of Medicare's requirements for reasonable and necessary INPATIENT services [42 CFR 412.3e].: Yes - Plan Summary Plan Summary: (1) Acute kidney injury Is this a current diagnosis for this admission?: Yes Plan: -improved with Polk insertion. Continues to have gross hematuria, most likely related to elevated bilirubin levels. Hgb has remained stable. -Cre back to baseline. IVF stopped -History of BPH. Resume his home dose Flomax. -Strict I&O's. Daily weights. (2) Urinary tract infection Qualifiers: Urinary tract infection type: acute cystitis Hematuria presence: with hematuria Qualified Code(s): N30.01 - Acute cystitis with hematuria Is this a current diagnosis for this admission?: Yes Plan: -UA suggestive, however ua cx negative @ 48 hours. continue IV Rocephin as his mentation has improved since intiation of abx -blood cx remain negative (3) End-stage liver disease Is this a current diagnosis for this admission?: Yes Plan: Patient with end-stage liver disease secondary to hepatitis C and alcohol abuse/dependence. Meld score 23. -Likely cause of low albumin, elevated INR, and elevated bilirubin counts. -spironolactone 100 mg daily -Lasix 40 mg daily -Fluid restriction 1.5 L daily. Weight has remained around 128kg since initiation of fluid restriction. -Hold on propanolol; consider initiating if blood pressures tolerate. Per patient, no history of esophageal varices/GI bleed. -Paracentesis 1226 removed a 3.6 L. Negative cx @ 48h -Palliative care consultation made on admission. -Registered dietitian is consulted. -Discharge plans are consulted; at minimum, patient will require home health nursing at discharge. (4) Anemia of chronic disease Is this a current diagnosis for this admission?: Yes Plan: -At baseline with hemoglobin of 10.3. -No evidence of active bleeding, other than hematuria which appears to be resolving. -continue multivitamin with iron supplementation. Registered dietitian is consulted; appreciate their evaluation recommendations. (5) Diabetes Qualifiers: Diabetes mellitus type: type 2 Diabetes mellitus fci insulin use: without fci use Diabetes mellitus complication status: with kidney complications Diabetes mellitus complication detail: with nephropathy Qualified Code(s): E11.21 - Type 2 diabetes mellitus with diabetic nephropathy Is this a current diagnosis for this admission?: Yes Plan: -a1c 5.5. large variations in BG also partially related to liver failure. continue to monitor (6) Thrombocytopenia Is this a current diagnosis for this admission?: Yes Plan: -Secondary to end-stage liver disease. -Continue daily aspirin 81 mg. -Reilly/SCDS for DVT prophylaxis; hold on heparin. (7) Electrolyte abnormalities -started on po potassium daily. monitor K. aware of lasix and spirnolactone -magnesium on lowered end of normal. daily supplementation. (8) elevated ammonia -Related to end-stage liver disease. Continue daily check of ammonia. controlled since increasing lactulose to q8 hours. (9)Tatum's palsy -Evaluated by speech therapy today. Diet changes made according to the recommendations. last MRI April 2018 Disposition: It does not appear the patient would be able to meet ADL's at home alone. Code status remains DNR. market asset protection manager is aware the patient will need assistance on discharge.
[2018-06-22] MEDS: TAMSULOSIN HCL 0.4 MG CAP.SR.24H PO SCH (18:52)
[2018-06-22] MEDS: CEFTRIAXONE SODIUM 1,000 MG in DEXTROSE 5%-WATER 50 ML IV SCH (18:52)
[2018-06-22] MEDS: AMITRIPTYLINE HCL 50 MG TABLET PO SCH (22:41)
[2018-06-23 06:30] LABS: HEMATOCRIT 32.9 % (37.9-51.0); HEMOGLOBIN 10.5 g/dL (13.5-17.0); MEAN CORPUSCULAR HEMOGLOBIN 22.9 pg (27.0-33.4); MEAN CORPUSCULAR HGB CONC 31.8 g/dL (32.0-36.0); MEAN CORPUSCULAR VOLUME 72 fl (80-97); PLATELET COUNT 109 10^3/uL (150-450); RED BLOOD COUNT 4.57 10^6/uL (4.35-5.55); RED CELL DISTRIBUTION WIDTH 23.5 % (11.5-14.0); WHITE BLOOD COUNT 3.2 10^3/uL (4.0-10.5)
[2018-06-23] MEDS: LACTULOSE SYRUP 20 GM/30 ML UDCUP PO SCH ×2 (06:31→15:50)
[2018-06-23] MEDS: LANSOPRAZOLE 15 MG TAB.RAP.DR PO SCH ×2 (06:31→18:10)
[2018-06-23] MEDS: POTASSIUM CHLORIDE 10 MEQ CAPSULE.ER PO SCH ×2 (06:31→15:48)
[2018-06-23] MEDS: GABAPENTIN 100 MG CAPSULE PO SCH ×2 (06:35→15:48)
[2018-06-23 06:51] LABS: ALANINE AMINOTRANSFERASE 56 U/L (21-72); ALBUMIN 2.9 g/dL (3.5-5.0); ALKALINE PHOSPHATASE 82 U/L (38-126); ANION GAP 8 (5-19); ASPARTATE AMINO TRANSFERASE 124 U/L (17-59); BILIRUBIN,DIRECT 4.6 mg/dL (0.0-0.4); BILIRUBIN,TOTAL 6.4 mg/dL (0.2-1.3); BLOOD UREA NITROGEN 15 mg/dL (7-20); CALCIUM 8.9 mg/dL (8.4-10.2); CARBON DIOXIDE 24 mmol/L (22-30); CHLORIDE 107 mmol/L (98-107); GLUCOSE 156 mg/dL (75-110); POTASSIUM 4.1 mmol/L (3.6-5.0); SODIUM 139.2 mmol/L (137-145)
[2018-06-23 08:01] LABS: ABSOLUTE LYMPHOCYTES# (MANUAL) 0.5 10^3/uL (0.5-4.7); ABSOLUTE MONOCYTES # (MANUAL) 0.2 10^3/uL (0.1-1.4); ABSOLUTE NEUTROPHILS# (MANUAL) 2.4 10^3/uL (1.7-8.2); BASOPHILS % (MANUAL) 1 % (0-2); EOSINOPHILS % (MANUAL) 3 % (0-6); LYMPHOCYTES % (MANUAL) 16 % (13-45); MONOCYTES % (MANUAL) 5 % (3-13); SEGMENTED NEUTROPHILS % (MAN) 75 % (42-78); TOTAL CELLS COUNTED 100
[2018-06-23 08:03] LABS: POLYCHROMASIA SLIGHT
[2018-06-23 08:04] LABS: ANISOCYTOSIS 3+; HYPOCHROMASIA 1+; OVALOCYTES 1+; PLATELET COMMENT DECREASED; POIKILOCYTOSIS 1+
[2018-06-23] MEDS: FUROSEMIDE 40 MG TABLET PO SCH (11:01)
[2018-06-23] MEDS: FOLIC ACID 1 MG TABLET PO SCH (11:01)
[2018-06-23] MEDS: SPIRONOLACTONE 25 MG TABLET PO SCH (11:02)
[2018-06-23] MEDS: THIAMINE HCL 100 MG TABLET PO SCH (11:02)
[2018-06-23] MEDS: DOCUSATE SODIUM 100 MG CAPSULE PO SCH (11:02)
[2018-06-23] MEDS: MAGNESIUM OXIDE 400 MG TABLET PO SCH ×2 (11:02→18:10)
[2018-06-23] MEDS: LIDOCAINE 5% (700 MG) TRANSDERMAL ADH..PATCH TP SCH (11:03)
[2018-06-23] MEDS: INSULIN LISPRO 100 UNIT/ML 3 ML VIAL SUBCUT PRN (12:33)
[2018-06-23] MEDS ORDERED: LORAZEPAM 0.5 MG TABLET PO PRN (17:49)
[2018-06-23] MEDS: CEFTRIAXONE SODIUM 1,000 MG in DEXTROSE 5%-WATER 50 ML IV SCH (18:09)
[2018-06-23] MEDS: TAMSULOSIN HCL 0.4 MG CAP.SR.24H PO SCH (18:10)
[2018-06-23] MEDS ORDERED: LORAZEPAM 1 MG TABLET ONE (18:17)
[2018-06-23] MEDS ORDERED: LORAZEPAM INJ 2 MG/1 ML VIAL ONE (18:22)
[2018-06-23] MEDS: LORAZEPAM INJ 2 MG/1 ML VIAL IV PRN (18:29)
--- NOTE | 2018-06-23 18:32 | PDOC PROGRESS REPORT ---
Subjective Progress Note for:: 06/23/18 Subjective:: ELIS GRIGGS is a 67 year old male with a past medical history of end-stage liver disease, hepatitis C, DM type II, neuropathy, hypertension, GERD, depression, tobacco dependence, alcohol dependence, tatum's palsy and drug abuse (patient reports that he discontinued tobacco, alcohol, recreational drugs 2-3 months ago). Mr Griggs reports feeling okay today. His appetite is okay today feels his abdomen is more tense. He denies fever/chills. Nursing staff reports he has become more agitated intermittently today. During my evaluation he is calm cooperative and alert and oriented to person, place, situation, date, year, president. Seems that he would like to get a bed, but it does not seem that this would be a safe option at this time. His Tatum's palsy seems to have improved over the last 24 hours. The right side of his face is only mildly deviated from the left. Denies chest pain, acute changes in breathing, or signs of bleeding. He continued to have gross hematuria. Reason For Visit: UTI,DEEDEE,END STAGE LIVER DISEASE Physical Exam Vital Signs: Temp Pulse Resp BP Pulse Ox 98.6 F 113 H 18 165/90 H 94 06/23/18 12:00 06/23/18 14:35 06/23/18 14:35 06/23/18 12:00 06/23/18 14:38 Intake & Output 06/22/18 06/23/18 06/24/18 06:59 06:59 06:59 Intake Total 1566 1250 Output Total 500 1525 Balance 1066 -275 Weight 128.6 kg 126.8 kg General appearance: PRESENT: no acute distress Head exam: PRESENT: atraumatic - Right-sided facial paralysis less than previously, other Eye exam: PRESENT: scleral icterus Ear exam: PRESENT: normal external ear exam Mouth exam: PRESENT: moist, tongue midline Teeth exam: PRESENT: poor dentation Respiratory exam: PRESENT: other - Good airflow bilaterally. Decreased breath sounds at bases. No wheeze appreciated. Cardiovascular exam: PRESENT: RRR, +S1, +S2 GI/Abdominal exam: PRESENT: ascites, distended, firm Rectal exam: PRESENT: deferred Neurological exam: PRESENT: alert, altered, awake, oriented to person, oriented to time, oriented to situation Psychiatric exam: PRESENT: agitated Results Laboratory Results: 06/23/18 05:57 06/23/18 05:57 06/23/18 06/23/18 06/23/18 05:57 05:57 05:57 WBC 3.2 L RBC 4.57 Hgb 10.5 L Hct 32.9 L MCV 72 L MCH 22.9 L MCHC 31.8 L RDW 23.5 H Plt Count 109 L Seg Neutrophils % Not Reportable Lymphocytes % Not Reportable Monocytes % Not Reportable Eosinophils % Not Reportable Basophils % Not Reportable Absolute Neutrophils Not Reportable Absolute Lymphocytes Not Reportable Absolute Monocytes Not Reportable Absolute Eosinophils Not Reportable Absolute Basophils Not Reportable Sodium 139.2 Potassium 4.1 Chloride 107 Carbon Dioxide 24 Anion Gap 8 BUN 15 Creatinine 0.84 Est GFR ( Amer) > 60 Est GFR (Non-Af Amer) > 60 Glucose 156 H Calcium 8.9 Total Bilirubin 6.4 H AST 124 H ALT 56 Alkaline Phosphatase 82 Ammonia 11.1 Total Protein 7.0 Albumin 2.9 L 06/18/18 15:15 Blood Blood Culture - Final NO GROWTH IN 5 DAYS 06/18/18 14:56 Blood Blood Culture - Final NO GROWTH IN 5 DAYS Impressions: Knee X-Ray 06/18/18 11:46 IMPRESSION: Degenerative changes without evidence of fracture. Paracentesis Ultrasound 06/20/18 16:17 IMPRESSION: Successful ultrasound-guided diagnostic and therapeutic paracentesis Assessment & Plan - Diagnosis (1) Tatum's palsy Is this a current diagnosis for this admission?: Yes (2) Cirrhosis of liver Is this a current diagnosis for this admission?: Yes (3) End-stage liver disease Is this a current diagnosis for this admission?: Yes (4) Urinary tract infection Qualifiers: Urinary tract infection type: acute cystitis Hematuria presence: with hematuria Qualified Code(s): N30.01 - Acute cystitis with hematuria Is this a current diagnosis for this admission?: Yes (5) Acute kidney injury Is this a current diagnosis for this admission?: Yes (6) Hepatitis C Qualifiers: Viral hepatitis chronicity: chronic Hepatic coma status: without hepatic coma Qualified Code(s): B18.2 - Chronic viral hepatitis C Is this a current diagnosis for this admission?: Yes - Time Time Spent with patient: 25-34 minutes - Inpatient Certification Based on my medical assessment, after consideration of the patient's comorbidities, presenting symptoms, or acuity I expect that the services needed warrant INPATIENT care.: Yes I certify that my determination is in accordance with my understanding of Medicare's requirements for reasonable and necessary INPATIENT services [42 CFR 412.3e].: Yes - Plan Summary Plan Summary: (1) Acute kidney injury Is this a current diagnosis for this admission?: Yes Plan: Improved with IV fluids and Polk placement. Continue with Flomax. (2) Urinary tract infection Qualifiers: Urinary tract infection type: acute cystitis Hematuria presence: with hematuria Qualified Code(s): N30.01 - Acute cystitis with hematuria Is this a current diagnosis for this admission?: Yes Plan: Suggest phone urinalysis, however urine and blood cultures have been negative. Continue IV Rocephin course to completion. Consideration should be given to infection been located in the ascitic fluid given that the patient was on antibiotics several days before the fluid was drawn. (3) End-stage liver disease Is this a current diagnosis for this admission?: Yes Plan: Patient with end-stage liver disease secondary to hepatitis C and alcohol abuse/ dependence. Meld score 23. -spironolactone 100 mg and Lasix 40 mg started on admission for ascites. Hold on propanolol; consider initiating if blood pressures tolerate. Per patient, no history of esophageal varices/GI bleed. s/p therapeutic paracentesis on June 20 removed 3.6 L. At this point cytology is negative. Palliative care consultation. Registered dietitian is consulted. Discharge plans are consulted; at minimum, patient will require home health nursing at discharge. (4) Anemia of chronic disease Is this a current diagnosis for this admission?: Yes Plan: At baseline with hemoglobin of 10.3.. No evidence of active bleeding. Start multivitamin with iron supplementation. Registered dietitian is consulted; appreciate their evaluation recommendations. (5) Diabetes Qualifiers: Diabetes mellitus type: type 2 Diabetes mellitus chcf insulin use: without terminal block assembler use Diabetes mellitus complication status: with kidney complications Diabetes mellitus complication detail: with nephropathy Qualified Code(s): E11.21 - Type 2 diabetes mellitus with diabetic nephropathy Is this a current diagnosis for this admission?: Yes Plan: A1c within normal limits. Cautious interventions due to cirrhosis effects on glucagon. (6) Thrombocytopenia Is this a current diagnosis for this admission?: Yes Plan: Secondary to end-stage liver disease. Continue daily aspirin 81 mg. Reilly/SCDS for DVT prophylaxis; hold on heparin. (7) Agitation -increase prn ativan to 1mg po q6h prn po OR IV -limited options due to cirrhosis. risk-reward evaluated
[2018-06-23 19:41] LABS: HEMATOCRIT 35.5 % (37.9-51.0); HEMOGLOBIN 11.3 g/dL (13.5-17.0); MEAN CORPUSCULAR HEMOGLOBIN 22.7 pg (27.0-33.4); MEAN CORPUSCULAR HGB CONC 31.8 g/dL (32.0-36.0); MEAN CORPUSCULAR VOLUME 72 fl (80-97); PLATELET COUNT 127 10^3/uL (150-450); RED BLOOD COUNT 4.97 10^6/uL (4.35-5.55); WHITE BLOOD COUNT 4.5 10^3/uL (4.0-10.5)
[2018-06-23 20:03] LABS: ALANINE AMINOTRANSFERASE 55 U/L (21-72); ALBUMIN 3.1 g/dL (3.5-5.0); ALKALINE PHOSPHATASE 89 U/L (38-126); ANION GAP 9 (5-19); ASPARTATE AMINO TRANSFERASE 140 U/L (17-59); BILIRUBIN,DIRECT 4.6 mg/dL (0.0-0.4); BILIRUBIN,TOTAL 6.8 mg/dL (0.2-1.3); BLOOD UREA NITROGEN 17 mg/dL (7-20); CALCIUM 9.3 mg/dL (8.4-10.2); CARBON DIOXIDE 24 mmol/L (22-30); CHLORIDE 105 mmol/L (98-107); GLUCOSE 180 mg/dL (75-110); POTASSIUM 4.2 mmol/L (3.6-5.0); SODIUM 138.3 mmol/L (137-145); TOTAL PROTEIN 7.4 g/dL (6.3-8.2)
[2018-06-24] MEDS: AMITRIPTYLINE HCL 50 MG TABLET PO SCH ×2 (00:06→22:52)
[2018-06-24] MEDS: POTASSIUM CHLORIDE 10 MEQ CAPSULE.ER PO SCH ×4 (00:06→22:53)
[2018-06-24] MEDS: LIDOCAINE 5% (700 MG) TRANSDERMAL ADH..PATCH TP SCH ×2 (00:17→22:54)
[2018-06-24] MEDS: LACTULOSE SYRUP 20 GM/30 ML UDCUP PO SCH ×4 (00:18→22:51)
[2018-06-24] MEDS: LORAZEPAM INJ 2 MG/1 ML VIAL IV PRN (06:39)
[2018-06-24] MEDS: LANSOPRAZOLE 15 MG TAB.RAP.DR PO SCH ×2 (07:35→16:29)
[2018-06-24] MEDS: DOCUSATE SODIUM 100 MG CAPSULE PO SCH (09:13)
[2018-06-24] MEDS: MAGNESIUM OXIDE 400 MG TABLET PO SCH ×2 (09:13→17:12)
[2018-06-24] MEDS: SPIRONOLACTONE 25 MG TABLET PO SCH (09:13)
[2018-06-24] MEDS: FUROSEMIDE 40 MG TABLET PO SCH (09:13)
[2018-06-24] MEDS: FOLIC ACID 1 MG TABLET PO SCH (09:13)
[2018-06-24] MEDS: THIAMINE HCL 100 MG TABLET PO SCH (09:13)
[2018-06-24] MEDS ORDERED: LORAZEPAM 0.5 MG TABLET PO PRN (09:43)
[2018-06-24] MEDS ORDERED: LORAZEPAM INJ 2 MG/1 ML VIAL IV PRN (09:43)
[2018-06-24 11:46] LABS: HEMATOCRIT 32.1 % (37.9-51.0); HEMOGLOBIN 10.3 g/dL (13.5-17.0); MEAN CORPUSCULAR HEMOGLOBIN 22.8 pg (27.0-33.4); MEAN CORPUSCULAR VOLUME 71 fl (80-97); RED CELL DISTRIBUTION WIDTH 23.8 % (11.5-14.0)
[2018-06-24 11:54] LABS: PLATELET COUNT 90 10^3/uL (150-450)
[2018-06-24 12:03] LABS: ALANINE AMINOTRANSFERASE 56 U/L (21-72); ALBUMIN 2.9 g/dL (3.5-5.0); ALKALINE PHOSPHATASE 79 U/L (38-126); ANION GAP 7 (5-19); ASPARTATE AMINO TRANSFERASE 134 U/L (17-59); BILIRUBIN,DIRECT 4.1 mg/dL (0.0-0.4); BILIRUBIN,TOTAL 5.8 mg/dL (0.2-1.3); BLOOD UREA NITROGEN 17 mg/dL (7-20); CALCIUM 9.2 mg/dL (8.4-10.2); CARBON DIOXIDE 24 mmol/L (22-30); CHLORIDE 107 mmol/L (98-107); GLUCOSE 151 mg/dL (75-110); POTASSIUM 4.2 mmol/L (3.6-5.0); SODIUM 137.9 mmol/L (137-145); TOTAL PROTEIN 6.8 g/dL (6.3-8.2)
[2018-06-24 13:49] LABS: AMORPHOUS SEDIMENT,URINE TRACE /HPF; APPEARANCE,URINE CLOUDY; BILIRUBIN,URINE SMALL (NEGATIVE); COLOR,URINE AMBER; GLUCOSE, URINE NEGATIVE (NEGATIVE); KETONES,URINE NEGATIVE (NEGATIVE); LEUKOCYTE ESTERASE,URINE NEGATIVE (NEGATIVE); NITRITE,URINE NEGATIVE (NEGATIVE); PROTEIN,URINE 30 mg/dL (NEGATIVE); URINE SPECIFIC GRAVITY 1.028
--- NOTE | 2018-06-24 16:12 | PDOC PROGRESS REPORT ---
Subjective Progress Note for:: 06/24/18 Subjective:: ELIS GRIGGS is a 67 year old male with a past medical history of end-stage liver disease, hepatitis C, DM type II, neuropathy, hypertension, GERD, depression, tobacco dependence, alcohol dependence, tatum's palsy and drug abuse (patient reports that he discontinued tobacco, alcohol, recreational drugs 2-3 months ago). Peers the patient was restrained overnight. He continues to be in restraints. He is oriented to himself and the month and the year. Intermittently gets agitated. Seems that the low-dose of Ativan has worked at calming him down according to nursing, without knocking him out. Patient reports that his abdomen feels full. Reason For Visit: UTI,DEEDEE,END STAGE LIVER DISEASE Physical Exam Vital Signs: Temp Pulse Resp BP Pulse Ox 97.5 F 99 18 162/83 H 95 06/24/18 12:00 06/24/18 12:00 06/24/18 12:00 06/24/18 12:00 06/24/18 12:00 Intake & Output 06/23/18 06/24/18 06/25/18 06:59 06:59 06:59 Intake Total 1250 200 Output Total 1525 400 Balance -275 -200 Weight 126.8 kg 127.4 kg General appearance: PRESENT: no acute distress, obese Head exam: PRESENT: atraumatic, normocephalic, other - Right-sided facial paralysis is minimal. Eye exam: PRESENT: PERRLA, scleral icterus Ear exam: PRESENT: normal external ear exam Mouth exam: PRESENT: moist, tongue midline Teeth exam: PRESENT: poor dentation Respiratory exam: PRESENT: other - Good airflow bilateral lower. Diminished at bases. No wheeze. Cardiovascular exam: PRESENT: RRR, +S1, +S2 Pulses: PRESENT: normal dorsalis pedis pul Vascular exam: PRESENT: normal capillary refill GI/Abdominal exam: PRESENT: ascites, distended, normal bowel sounds Rectal exam: PRESENT: deferred Gentrourinary exam: PRESENT: indwelling catheter Extremities exam: PRESENT: other - 2+ edema bilateral lower extremities. Neurological exam: PRESENT: alert, altered, awake, oriented to person, oriented to time, other - Gait not assessed Psychiatric exam: PRESENT: agitated Skin exam: PRESENT: jaundice Results Laboratory Results: 06/24/18 11:23 06/24/18 11:23 06/23/18 06/23/18 06/23/18 19:33 19:33 19:33 WBC 4.5 RBC 4.97 Hgb 11.3 L Hct 35.5 L MCV 72 L MCH 22.7 L MCHC 31.8 L RDW 24.0 H Plt Count 127 L Sodium 138.3 Potassium 4.2 Chloride 105 Carbon Dioxide 24 Anion Gap 9 BUN 17 Creatinine 0.91 Est GFR ( Amer) > 60 Est GFR (Non-Af Amer) > 60 Glucose 180 H Calcium 9.3 Magnesium 1.7 Total Bilirubin 6.8 H AST 140 H ALT 55 Alkaline Phosphatase 89 Ammonia 26.2 Total Protein 7.4 Albumin 3.1 L Urine Color Urine Appearance Urine pH Ur Specific [place] Urine Protein Urine Glucose (UA) Urine Ketones Urine Blood Urine Nitrite Ur Leukocyte Esterase Urine WBC (Auto) Urine RBC (Auto) 06/24/18 06/24/18 06/24/18 11:23 11:23 11:23 WBC 3.0 L RBC 4.50 Hgb 10.3 L Hct 32.1 L MCV 71 L MCH 22.8 L MCHC 32.0 RDW 23.8 H Plt Count 90 L Sodium 137.9 Potassium 4.2 Chloride 107 Carbon Dioxide 24 Anion Gap 7 BUN 17 Creatinine 0.76 Est GFR ( Amer) > 60 Est GFR (Non-Af Amer) > 60 Glucose 151 H Calcium 9.2 Magnesium 1.9 Total Bilirubin 5.8 H AST 134 H ALT 56 Alkaline Phosphatase 79 Ammonia 19.5 Total Protein 6.8 Albumin 2.9 L Urine Color Urine Appearance Urine pH Ur Specific [place] Urine Protein Urine Glucose (UA) Urine Ketones Urine Blood Urine Nitrite Ur Leukocyte Esterase Urine WBC (Auto) Urine RBC (Auto) 06/24/18 13:18 WBC RBC Hgb Hct MCV MCH MCHC RDW Plt Count Sodium Potassium Chloride Carbon Dioxide Anion Gap BUN Creatinine Est GFR ( Amer) Est GFR (Non-Af Amer) Glucose Calcium Magnesium Total Bilirubin AST ALT Alkaline Phosphatase Ammonia Total Protein Albumin Urine Color ALEJO Urine Appearance CLOUDY Urine pH 5.0 Ur Specific [place] 1.028 Urine Protein 30 H Urine Glucose (UA) NEGATIVE Urine Ketones NEGATIVE Urine Blood MODERATE H Urine Nitrite NEGATIVE Ur Leukocyte Esterase NEGATIVE Urine WBC (Auto) 7 Urine RBC (Auto) 74 06/20/18 10:49 Ascities Fluid Gram Stain - Final 06/20/18 10:49 Ascities Fluid Body Fluid Culture - Final NO AEROBIC OR ANAEROBIC ORGANISMS RECOVERED 06/18/18 15:15 Blood Blood Culture - Final NO GROWTH IN 5 DAYS 06/18/18 14:56 Blood Blood Culture - Final NO GROWTH IN 5 DAYS Impressions: Knee X-Ray 06/18/18 11:46 IMPRESSION: Degenerative changes without evidence of fracture. Paracentesis Ultrasound 06/20/18 16:17 IMPRESSION: Successful ultrasound-guided diagnostic and therapeutic paracentesis Assessment & Plan - Diagnosis (1) Tatum's palsy Is this a current diagnosis for this admission?: Yes (2) Cirrhosis of liver Is this a current diagnosis for this admission?: Yes (3) End-stage liver disease Is this a current diagnosis for this admission?: Yes (4) Urinary tract infection Qualifiers: Urinary tract infection type: acute cystitis Hematuria presence: with hematuria Qualified Code(s): N30.01 - Acute cystitis with hematuria Is this a current diagnosis for this admission?: Yes (5) Acute kidney injury Is this a current diagnosis for this admission?: Yes (6) Hepatitis C Qualifiers: Viral hepatitis chronicity: chronic Hepatic coma status: without hepatic coma Qualified Code(s): B18.2 - Chronic viral hepatitis C Is this a current diagnosis for this admission?: Yes - Time Time Spent with patient: 25-34 minutes Medications reviewed and adjusted accordingly: Yes - Inpatient Certification Based on my medical assessment, after consideration of the patient's yvonne rbidities, presenting symptoms, or acuity I expect that the services needed warrant INPATIENT care.: Yes I certify that my determination is in accordance with my understanding of Medicare's requirements for reasonable and necessary INPATIENT services [42 CFR 412.3e].: Yes - Plan Summary Plan Summary: (1) Acute kidney injury Is this a current diagnosis for this admission?: Yes Plan: Improved with IV fluids and Polk placement. Continue with Flomax. (2) Urinary tract infection Qualifiers: Urinary tract infection type: acute cystitis Hematuria presence: with hematuria Qualified Code(s): N30.01 - Acute cystitis with hematuria Is this a current diagnosis for this admission?: Yes Plan: Suggest phone urinalysis, however urine and blood cultures have been negative. Continue IV Rocephin course to completion. Consideration should be given to infection been located in the ascitic fluid given that the patient was on antibiotics several days before the fluid was drawn. (3) End-stage liver disease Is this a current diagnosis for this admission?: Yes Plan: -Patient with end-stage liver disease secondary to hepatitis C and alcohol abuse/dependence. Meld score 23. -spironolactone 100 mg and Lasix 40 mg started on admission for ascites. -Hold on propanolol; consider initiating if blood pressures tolerate. Per patient, no history of esophageal varices/GI bleed. -s/p therapeutic paracentesis on June 20 removed 3.6 L. At this point c ytology is negative. -Palliative care consultation. Registered dietitian is consulted. Discharge rosemary ns are consulted; at minimum, patient will require home health nursing at discharge. (4) Anemia of chronic disease Is this a current diagnosis for this admission?: Yes Plan: At baseline with hemoglobin of 10.3.. No evidence of active bleeding. Start multivitamin with iron supplementation. Registered dietitian is consulted; appreciate their evaluation recommendations. (5) Diabetes Qualifiers: Diabetes mellitus type: type 2 Diabetes mellitus termite treater insulin use: without longterm use Diabetes mellitus complication status: with kidney complications Diabetes mellitus complication detail: with nephropathy Qualified Code(s): E11.21 - Type 2 diabetes mellitus with diabetic nephropathy Is this a current diagnosis for this admission?: Yes Plan: A1c within normal limits. Cautious interventions due to cirrhosis effects on glucagon. (6) Thrombocytopenia Is this a current diagnosis for this admission?: Yes Plan: Secondary to end-stage liver disease. Continue daily aspirin 81 mg. Reilly/SCDS for DVT prophylaxis; hold on heparin. (7) Agitation -PRN Haldol 2 mg. Use prior to Ativan. Do not give at the same time. by an hour. -increase prn ativan to 0.5mg po q6h prn po OR IV -limited options due to cirrhosis. risk-reward evaluated
[2018-06-24] MEDS: HALOPERIDOL LACTATE INJ 5 MG/1 ML VIAL IV PRN (16:29)
[2018-06-24] MEDS ORDERED: FUROSEMIDE INJ/PF 40 MG/4 ML SDV IV ONE (17:00)
[2018-06-24] MEDS: CEFTRIAXONE SODIUM 1,000 MG in DEXTROSE 5%-WATER 50 ML IV SCH (17:10)
[2018-06-24] MEDS: TAMSULOSIN HCL 0.4 MG CAP.SR.24H PO SCH (17:12)
[2018-06-25 05:47] LABS: HEMOGLOBIN 10.8 g/dL (13.5-17.0); MEAN CORPUSCULAR HEMOGLOBIN 22.5 pg (27.0-33.4); MEAN CORPUSCULAR HGB CONC 31.9 g/dL (32.0-36.0); MEAN CORPUSCULAR VOLUME 71 fl (80-97); PLATELET COUNT 104 10^3/uL (150-450); RED BLOOD COUNT 4.81 10^6/uL (4.35-5.55); RED CELL DISTRIBUTION WIDTH 23.4 % (11.5-14.0); WHITE BLOOD COUNT 3.8 10^3/uL (4.0-10.5)
[2018-06-25 06:02] LABS: ALANINE AMINOTRANSFERASE 58 U/L (21-72); ALBUMIN 3.1 g/dL (3.5-5.0); ALKALINE PHOSPHATASE 87 U/L (38-126); ANION GAP 9 (5-19); ASPARTATE AMINO TRANSFERASE 152 U/L (17-59); BILIRUBIN,DIRECT 4.5 mg/dL (0.0-0.4); BILIRUBIN,TOTAL 6.2 mg/dL (0.2-1.3); BLOOD UREA NITROGEN 19 mg/dL (7-20); CALCIUM 9.5 mg/dL (8.4-10.2); CARBON DIOXIDE 24 mmol/L (22-30); CHLORIDE 106 mmol/L (98-107); GLUCOSE 147 mg/dL (75-110); POTASSIUM 4.1 mmol/L (3.6-5.0); SODIUM 138.5 mmol/L (137-145); TOTAL PROTEIN 7.2 g/dL (6.3-8.2)
[2018-06-25] MEDS: LACTULOSE SYRUP 20 GM/30 ML UDCUP PO SCH ×3 (06:59→23:01)
[2018-06-25] MEDS: POTASSIUM CHLORIDE 10 MEQ CAPSULE.ER PO SCH ×3 (07:00→23:02)
[2018-06-25] MEDS: LANSOPRAZOLE 15 MG TAB.RAP.DR PO SCH ×3 (07:00→18:17)
[2018-06-25] MEDS: DOCUSATE SODIUM 100 MG CAPSULE PO SCH (09:50)
[2018-06-25] MEDS: FUROSEMIDE 40 MG TABLET PO SCH (09:52)
[2018-06-25] MEDS: THIAMINE HCL 100 MG TABLET PO SCH (09:52)
[2018-06-25] MEDS: SPIRONOLACTONE 25 MG TABLET PO SCH (09:52)
[2018-06-25] MEDS: FOLIC ACID 1 MG TABLET PO SCH (09:52)
[2018-06-25] MEDS: MAGNESIUM OXIDE 400 MG TABLET PO SCH ×3 (09:52→18:18)
[2018-06-25] MEDS: INSULIN LISPRO 100 UNIT/ML 3 ML VIAL SUBCUT PRN (13:02)
--- NOTE | 2018-06-25 13:37 | PDOC PROGRESS REPORT ---
Subjective Progress Note for:: 06/25/18 Subjective:: The patient is eating lunch. He has a new right facial droop. He also complains of abdominal fullness. Reason For Visit: UTI,DEEDEE,END STAGE LIVER DISEASE Physical Exam Vital Signs: Temp Pulse Resp BP Pulse Ox 98.4 F 108 H 24 H 147/72 H 95 06/25/18 12:06 06/25/18 12:06 06/25/18 12:06 06/25/18 12:06 06/25/18 12:06 Intake & Output 06/24/18 06/25/18 06/26/18 06:59 06:59 06:59 Intake Total 200 1412 Output Total 400 1700 Balance -200 -288 Weight 127.4 kg 130.9 kg General appearance: PRESENT: no acute distress, cooperative Head exam: PRESENT: normocephalic Eye exam: PRESENT: EOMI, scleral icterus Ear exam: PRESENT: normal external ear exam Mouth exam: PRESENT: dry mucosa, tongue midline Respiratory exam: PRESENT: clear to auscultation leno, symmetrical, unlabored. ABSENT: rales, rhonchi, wheezes Cardiovascular exam: PRESENT: RRR, +S1, +S2, systolic murmur - 2/6 GI/Abdominal exam: PRESENT: distended, firm, normal bowel sounds. ABSENT: tenderness Extremities exam: PRESENT: +1 edema Neurological exam: PRESENT: alert, awake, oriented to person, oriented to place Psychiatric exam: PRESENT: appropriate affect. ABSENT: agitated Results Laboratory Results: 06/25/18 05:33 06/25/18 05:33 06/24/18 06/25/18 06/25/18 13:18 05:23 05:33 WBC 3.8 L RBC 4.81 Hgb 10.8 L Hct 34.0 L MCV 71 L MCH 22.5 L MCHC 31.9 L RDW 23.4 H Plt Count 104 L Sodium Potassium Chloride Carbon Dioxide Anion Gap BUN Creatinine Est GFR ( Amer) Est GFR (Non-Af Amer) Glucose Calcium Magnesium Total Bilirubin AST ALT Alkaline Phosphatase Ammonia 22.4 Total Protein Albumin Urine Color ALEJO Urine Appearance CLOUDY Urine pH 5.0 Ur Specific [place] 1.028 Urine Protein 30 H Urine Glucose (UA) NEGATIVE Urine Ketones NEGATIVE Urine Blood MODERATE H Urine Nitrite NEGATIVE Ur Leukocyte Esterase NEGATIVE Urine WBC (Auto) 7 Urine RBC (Auto) 74 06/25/18 05:33 WBC RBC Hgb Hct MCV MCH MCHC RDW Plt Count Sodium 138.5 Potassium 4.1 Chloride 106 Carbon Dioxide 24 Anion Gap 9 BUN 19 Creatinine 0.90 Est GFR ( Amer) > 60 Est GFR (Non-Af Amer) > 60 Glucose 147 H Calcium 9.5 Magnesium 1.9 Total Bilirubin 6.2 H AST 152 H ALT 58 Alkaline Phosphatase 87 Ammonia Total Protein 7.2 Albumin 3.1 L Urine Color Urine Appearance Urine pH Ur Specific [place] Urine Protein Urine Glucose (UA) Urine Ketones Urine Blood Urine Nitrite Ur Leukocyte Esterase Urine WBC (Auto) Urine RBC (Auto) Impressions: Knee X-Ray 06/18/18 11:46 IMPRESSION: Degenerative changes without evidence of fracture. 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 He states that it got a little better and then today it seems worse. I will give him a single dose of Solu-Medrol to see if this helps. (2) Cirrhosis of liver Qualifiers: Ascites presence: unspecified Is this a current diagnosis for this admission?: Yes Plan: He did have 3.6 L of fluid removed on the by ultrasound-guided paracentesis in radiology. His abdomen is tense. I will try and wait several days prior to considering an additional paracentesis. In the meantime he is on fluid restriction as well as Aldactone and furosemide. (3) End-stage liver disease Is this a current diagnosis for this admission?: Yes Plan: As above (4) Urinary tract infection Qualifiers: Urinary tract infection type: acute cystitis Hematuria presence: with hematuria Qualified Code(s): N30.01 - Acute cystitis with hematuria Is this a current diagnosis for this admission?: Yes Plan: Urine cultures x2 did not grow any organism. He may have had dysuria but workup for infection was negative. (5) Acute kidney injury Is this a current diagnosis for this admission?: Yes Plan: GFR was slightly decreased on admission. His GFR is now greater than 60. - Time Time Spent with patient: 15-24 minutes Medications reviewed and adjusted accordingly: Yes
[2018-06-25] MEDS ORDERED: METHYLPREDNISOLONE INJ 40 MG/1 ML SDV IV ONE (14:30)
[2018-06-25] MEDS: CEFTRIAXONE SODIUM 1,000 MG in DEXTROSE 5%-WATER 50 ML IV SCH (17:24)
[2018-06-25] MEDS: TAMSULOSIN HCL 0.4 MG CAP.SR.24H PO SCH ×2 (17:25→18:18)
[2018-06-25] MEDS: AMITRIPTYLINE HCL 50 MG TABLET PO SCH (23:01)
[2018-06-25] MEDS: LIDOCAINE 5% (700 MG) TRANSDERMAL ADH..PATCH TP SCH (23:04)
[2018-06-26] MEDS: POTASSIUM CHLORIDE 10 MEQ CAPSULE.ER PO SCH ×3 (07:01→23:31)
[2018-06-26] MEDS: LANSOPRAZOLE 15 MG TAB.RAP.DR PO SCH ×2 (07:01→17:51)
[2018-06-26] MEDS: LACTULOSE SYRUP 20 GM/30 ML UDCUP PO SCH ×3 (07:01→23:30)
[2018-06-26] MEDS: FUROSEMIDE 40 MG TABLET PO SCH (10:30)
[2018-06-26] MEDS: MAGNESIUM OXIDE 400 MG TABLET PO SCH ×2 (10:30→17:53)
[2018-06-26] MEDS: DOCUSATE SODIUM 100 MG CAPSULE PO SCH (10:30)
[2018-06-26] MEDS: SPIRONOLACTONE 25 MG TABLET PO SCH (10:30)
[2018-06-26] MEDS: THIAMINE HCL 100 MG TABLET PO SCH (10:30)
[2018-06-26] MEDS: FOLIC ACID 1 MG TABLET PO SCH (10:30)
[2018-06-26] MEDS: HALOPERIDOL LACTATE INJ 5 MG/1 ML VIAL IV PRN (11:22)
--- NOTE | 2018-06-26 16:51 | PDOC PROGRESS REPORT ---
Subjective Progress Note for:: 06/26/18 Subjective:: Patient is resting comfortably today. He still complains of tense sensation in his abdomen. Of note his Polk collection bag is extremely cloudy with pink discolored urine. Reason For Visit: UTI,DEEDEE,END STAGE LIVER DISEASE Physical Exam Vital Signs: Temp Pulse Resp BP Pulse Ox 98.3 F 104 H 18 151/73 H 92 06/26/18 12:18 06/26/18 12:18 06/26/18 12:18 06/26/18 12:18 06/26/18 12:18 Intake & Output 06/25/18 06/26/18 06/27/18 06:59 06:59 06:59 Intake Total 1412 865 502 Output Total 1700 1600 Balance -288 -735 502 Weight 130.9 kg 126 kg General appearance: PRESENT: no acute distress, morbidly obese - BMI 37.7, well- developed Head exam: PRESENT: normocephalic Eye exam: PRESENT: scleral icterus Ear exam: PRESENT: normal external ear exam Neck exam: ABSENT: carotid bruit, lymphadenopathy Respiratory exam: PRESENT: decreased breath sounds - At bases, symmetrical, unlabored. ABSENT: rales, rhonchi, wheezes Cardiovascular exam: PRESENT: RRR, +S1, +S2 GI/Abdominal exam: PRESENT: diminished bowel sounds - Difficult to auscultate due to marked ascites, distended, firm. ABSENT: tenderness Gentrourinary exam: PRESENT: indwelling catheter Extremities exam: PRESENT: pedal edema Neurological exam: PRESENT: alert, awake, oriented to person, oriented to place, oriented to situation Psychiatric exam: PRESENT: normal mood. ABSENT: agitated, anxious Focused psych exam: ABSENT: restlessness Skin exam: PRESENT: other Results Laboratory Results: 06/25/18 05:33 06/25/18 05:33 06/24/18 13:18 Catheterized Urine Urine Culture - Final NO GROWTH 2 DAYS Impressions: Knee X-Ray 06/18/18 11:46 IMPRESSION: Degenerative changes without evidence of fracture. Paracentesis Ultrasound 06/20/18 16:17 IMPRESSION: Successful ultrasound-guided diagnostic and therapeutic paracentesis Assessment & Plan - Diagnosis (1) Tatum's palsy Is this a current diagnosis for this admission?: Yes Plan: He did receive a dose of methylprednisolone yesterday. It has not had a profound effect. This is something that will resolve most likely over the course of months. (2) Cirrhosis of liver Qualifiers: Ascites presence: with ascites Is this a current diagnosis for this admission?: Yes Plan: It is difficult to determine which entity (hepatitis C versus alcoholic cirrhosis) is responsible for his ascites. It is most likely both. His ascites is marked. He just had 3 L of fluid removed approximately 1 week ago. I will order repeat paracentesis for tomorrow. He is already on spironolactone and furosemide. He is also on a fluid restriction. (3) End-stage liver disease Is this a current diagnosis for this admission?: Yes Plan: As noted above. Continue current regimen. (4) Urinary tract infection Qualifiers: Urinary tract infection type: acute cystitis Hematuria presence: with hematuria Qualified Code(s): N30.01 - Acute cystitis with hematuria Is this a current diagnosis for this admission?: Yes Plan: Patient with some hematuria but urine culture was negative. No antibiotic therapy indicated. (5) Acute kidney injury Is this a current diagnosis for this admission?: Yes Plan: Resolved. GFR greater than 60. - Time Time Spent with patient: 15-24 minutes Medications reviewed and adjusted accordingly: Yes Anticipated discharge: SNF - Plan Summary Plan Summary: The patient is still profoundly weak. He still requires significant assist when out of bed. He would likely benefit from a stay at alf facility.
[2018-06-26] MEDS: TRAMADOL HCL 50 MG TABLET PO PRN (17:51)
[2018-06-26] MEDS: TAMSULOSIN HCL 0.4 MG CAP.SR.24H PO SCH (17:51)
[2018-06-26] MEDS: NICOTINE 14 MG/24 HR PATCH.TD24 TD PRN (17:51)
[2018-06-26] MEDS ORDERED: DEXTROSE 50%-WATER 25 GM/50 ML DISP.SYRIN IV PRN ×2 (18:54)
[2018-06-26] MEDS ORDERED: DEXTROSE 40% GEL 15 GM TUBE PO PRN (18:54)
[2018-06-26] MEDS ORDERED: GLUCAGON,HUMAN RECOMB 1 MG INJ SUBCUT PRN (18:54)
[2018-06-26] MEDS: LIDOCAINE 5% (700 MG) TRANSDERMAL ADH..PATCH TP SCH (23:28)
[2018-06-26] MEDS: AMITRIPTYLINE HCL 50 MG TABLET PO SCH (23:32)
[2018-06-27] MEDS: LACTULOSE SYRUP 20 GM/30 ML UDCUP PO SCH ×4 (06:09→22:59)
[2018-06-27] MEDS: LANSOPRAZOLE 15 MG TAB.RAP.DR PO SCH ×2 (06:10→18:02)
[2018-06-27] MEDS: POTASSIUM CHLORIDE 10 MEQ CAPSULE.ER PO SCH ×3 (06:10→22:59)
[2018-06-27 06:21] LABS: INTERNATIONAL RATION (INR) 1.65; PROTHROMBIN TIME 20.3 SEC (11.4-15.4)
[2018-06-27 06:22] LABS: HEMATOCRIT 33.4 % (37.9-51.0); HEMOGLOBIN 10.6 g/dL (13.5-17.0); MEAN CORPUSCULAR HEMOGLOBIN 22.6 pg (27.0-33.4); MEAN CORPUSCULAR HGB CONC 31.6 g/dL (32.0-36.0); MEAN CORPUSCULAR VOLUME 72 fl (80-97); PARTIAL THROMBOPLASTIN TIME 31.7 SEC (23.5-35.8); RED BLOOD COUNT 4.68 10^6/uL (4.35-5.55); RED CELL DISTRIBUTION WIDTH 23.8 % (11.5-14.0); WHITE BLOOD COUNT 3.1 10^3/uL (4.0-10.5)
[2018-06-27 06:31] LABS: ALANINE AMINOTRANSFERASE 71 U/L (21-72); ALKALINE PHOSPHATASE 88 U/L (38-126); ANION GAP 8 (5-19); ASPARTATE AMINO TRANSFERASE 194 U/L (17-59); BILIRUBIN,TOTAL 5.9 mg/dL (0.2-1.3); BLOOD UREA NITROGEN 18 mg/dL (7-20); CALCIUM 9.2 mg/dL (8.4-10.2); CARBON DIOXIDE 25 mmol/L (22-30); CHLORIDE 104 mmol/L (98-107); GLUCOSE 157 mg/dL (75-110); POTASSIUM 3.7 mmol/L (3.6-5.0); SODIUM 137.1 mmol/L (137-145); TOTAL PROTEIN 7.1 g/dL (6.3-8.2)
[2018-06-27 06:44] LABS: PLATELET COUNT 77 10^3/uL (150-450)
--- NOTE | 2018-06-27 09:22 | PDOC PROGRESS REPORT ---
Subjective Progress Note for:: 06/27/18 Subjective:: Still sleepy this morning. Reason For Visit: UTI,DEEDEE,END STAGE LIVER DISEASE Physical Exam Vital Signs: Temp Pulse Resp BP Pulse Ox 97.9 F 103 H 20 143/78 H 95 06/27/18 08:00 06/27/18 08:00 06/27/18 08:00 06/27/18 08:00 06/27/18 08:00 Intake & Output 06/26/18 06/27/18 06/28/18 06:59 06:59 06:59 Intake Total 865 768 Output Total 1600 1350 Balance -735 -582 Weight 126 kg 126.5 kg General appearance: PRESENT: cooperative, morbidly obese - BMI 37.8, well- developed Eye exam: PRESENT: scleral icterus Mouth exam: PRESENT: dry mucosa, tongue midline Neck exam: ABSENT: lymphadenopathy, tenderness Respiratory exam: PRESENT: clear to auscultation leno, symmetrical, unlabored. ABSENT: rales, rhonchi, wheezes Cardiovascular exam: PRESENT: RRR, +S1, +S2 GI/Abdominal exam: PRESENT: diminished bowel sounds - Likely due to ascites and body habitus, distended, soft. ABSENT: tenderness Gentrourinary exam: PRESENT: indwelling catheter - Tea colored urine Extremities exam: PRESENT: pedal edema Neurological exam: PRESENT: awake, oriented to person, oriented to place. ABSENT: alert - Just woke up Psychiatric exam: PRESENT: flat affect. ABSENT: agitated, anxious Focused psych exam: ABSENT: restlessness Results Laboratory Results: 06/27/18 05:26 06/27/18 05:26 06/27/18 06/27/18 05:26 05:26 WBC 3.1 L RBC 4.68 Hgb 10.6 L Hct 33.4 L MCV 72 L MCH 22.6 L MCHC 31.6 L RDW 23.8 H Plt Count 77 L Sodium 137.1 Potassium 3.7 Chloride 104 Carbon Dioxide 25 Anion Gap 8 BUN 18 Creatinine 0.80 Est GFR ( Amer) > 60 Est GFR (Non-Af Amer) > 60 Glucose 157 H Calcium 9.2 Total Bilirubin 5.9 H AST 194 H ALT 71 Alkaline Phosphatase 88 Total Protein 7.1 Albumin 3.0 L 06/24/18 13:18 Catheterized Urine Urine Culture - Final NO GROWTH 2 DAYS Impressions: Knee X-Ray 06/18/18 11:46 IMPRESSION: Degenerative changes without evidence of fracture. Paracentesis Ultrasound 06/20/18 16:17 IMPRESSION: Successful ultrasound-guided diagnostic and therapeutic paracentesis Assessment & Plan - Diagnosis (1) Tatum's palsy Is this a current diagnosis for this admission?: Yes Plan: He appears to be stable. No acute intervention at this time. Should resolve slowly over weeks to months. (2) Cirrhosis of liver Qualifiers: Ascites presence: with ascites Is this a current diagnosis for this admission?: Yes Plan: Patient has a history of alcohol use as well as hepatitis C. Bilirubin remains elevated. Transaminases improved. I have ordered a paracentesis for today to try and remove more fluid. (3) End-stage liver disease Is this a current diagnosis for this admission?: Yes Plan: As above (4) Acute kidney injury Is this a current diagnosis for this admission?: Yes Plan: Resolved - Time Time Spent with patient: 15-24 minutes Medications reviewed and adjusted accordingly: Yes
[2018-06-27] MEDS: FOLIC ACID 1 MG TABLET PO SCH (10:09)
[2018-06-27] MEDS: SPIRONOLACTONE 25 MG TABLET PO SCH (10:09)
[2018-06-27] MEDS: THIAMINE HCL 100 MG TABLET PO SCH (10:09)
[2018-06-27] MEDS: MAGNESIUM OXIDE 400 MG TABLET PO SCH ×2 (10:09→18:02)
[2018-06-27] MEDS: DOCUSATE SODIUM 100 MG CAPSULE PO SCH (10:09)
[2018-06-27] MEDS: FUROSEMIDE 40 MG TABLET PO SCH (10:10)
[2018-06-27] MEDS: NICOTINE 14 MG/24 HR PATCH.TD24 TD PRN (10:10)
[2018-06-27] MEDS: TRAMADOL HCL 50 MG TABLET PO PRN (10:10)
[2018-06-27] MEDS ORDERED: LIDOCAINE 1% INJ-PF (10 MG/ML) 30 ML SDV ONE (10:26)
--- NOTE | 2018-06-27 11:32 | RADIOLOGY REPORT (SQ) ---
EXAM DESCRIPTION: U/S ABD PARACENTESIS COMPLETED DATE/TIME: 06/27/2018 11:20 am REASON FOR STUDY: Recurrent ascites COMPARISON: 06/20/2018 LIMITATIONS: None. PROCEDURE: Procedure, risks, benefit, and alternative explained to patient who then gave written con sent. The right lower abdominal wall marked using ultrasound guidance. A time-out was called for co rrect marking verification. Abdomen prepped and draped using sterile technique. Local anesthesia ach ieved using 3.0 ml of 1% lidocaine injection. A 6fr Urip-X-Qsvitacm set was introduced into the ashu toneal cavity. Fluid was drained. The catheter was removed and entry site was covered with sterile bandage. No immediate complications noted. Images acquired during the procedure were stored on PACS. FINDINGS: ENTRY SITE: Right lower quadrant FLUID VOLUME: 3,200 cc FLUID ANALYSIS: Straw OTHER: Therapeutic only. IMPRESSION: SUCCESSFUL ULTRASOUND GUIDED PARACENTESIS. COMMENT: Patient medication list reviewed:Yes- Quality ID# [id number]:Eligible professional attests to docu menting in the medical record they obtained, updated, or reviewed the patient's current medications. TECHNICAL DOCUMENTATION: JOB ID: [id number] [employer]- All Rights Reserved Reading location - IP/workstation name: [facility]
[2018-06-27] MEDS: TAMSULOSIN HCL 0.4 MG CAP.SR.24H PO SCH (18:02)
[2018-06-27] MEDS: INSULIN LISPRO 100 UNIT/ML 3 ML VIAL SUBCUT PRN (22:59)
[2018-06-27] MEDS: LIDOCAINE 5% (700 MG) TRANSDERMAL ADH..PATCH TP SCH (22:59)
[2018-06-27] MEDS: AMITRIPTYLINE HCL 50 MG TABLET PO SCH (22:59)
[2018-06-28] MEDS: LACTULOSE SYRUP 20 GM/30 ML UDCUP PO SCH ×2 (05:56→13:39)
[2018-06-28] MEDS: LANSOPRAZOLE 15 MG TAB.RAP.DR PO SCH ×2 (05:56→17:45)
[2018-06-28] MEDS: POTASSIUM CHLORIDE 10 MEQ CAPSULE.ER PO SCH ×3 (05:56→22:05)
[2018-06-28] MEDS: FUROSEMIDE 40 MG TABLET PO SCH (09:06)
[2018-06-28] MEDS: TRAMADOL HCL 50 MG TABLET PO PRN ×2 (09:06→15:33)
[2018-06-28] MEDS: FOLIC ACID 1 MG TABLET PO SCH (09:06)
[2018-06-28] MEDS: THIAMINE HCL 100 MG TABLET PO SCH (09:06)
[2018-06-28] MEDS: MAGNESIUM OXIDE 400 MG TABLET PO SCH ×2 (09:06→17:43)
[2018-06-28] MEDS: DOCUSATE SODIUM 100 MG CAPSULE PO SCH (09:07)
[2018-06-28] MEDS: SPIRONOLACTONE 25 MG TABLET PO SCH (09:07)
--- NOTE | 2018-06-28 13:57 | PDOC PROGRESS REPORT ---
Subjective Progress Note for:: 06/28/18 Subjective:: The patient is resting in bed. He is still in soft wrist restraints. Every time they remove the restraints he tries to get out of bed. He actually appreciates the fact that he is "loopy "sometimes. Reason For Visit: UTI,DEEDEE,END STAGE LIVER DISEASE Physical Exam Vital Signs: Temp Pulse Resp BP Pulse Ox 98.7 F 116 H 19 154/81 H 97 06/28/18 00:00 06/28/18 00:00 06/28/18 00:00 06/28/18 00:00 06/28/18 00:00 Intake & Output 06/27/18 06/28/18 06/29/18 06:59 06:59 06:59 Intake Total 768 784 Output Total 1350 1575 Balance -582 -791 Weight 126.5 kg 118.3 kg General appearance: PRESENT: no acute distress, morbidly obese, well-developed Head exam: PRESENT: normocephalic, other - Left facial droop from Tatum's palsy Eye exam: PRESENT: scleral icterus Ear exam: PRESENT: normal external ear exam Respiratory exam: PRESENT: clear to auscultation leno, symmetrical, unlabored. ABSENT: rales, rhonchi, wheezes Cardiovascular exam: PRESENT: RRR, +S1, +S2 GI/Abdominal exam: PRESENT: distended, soft, other - Paracentesis site right side of abdomen still trickling ascites. ABSENT: tenderness Neurological exam: PRESENT: alert, awake, oriented to person, oriented to place Psychiatric exam: PRESENT: normal mood. ABSENT: agitated, anxious Results Laboratory Results: 06/27/18 05:26 06/27/18 05:26 06/28/18 10:05 Ammonia 24.1 Impressions: Knee X-Ray 06/18/18 11:46 IMPRESSION: Degenerative changes without evidence of fracture. Paracentesis Ultrasound 06/27/18 08:00 IMPRESSION: SUCCESSFUL ULTRASOUND GUIDED PARACENTESIS. 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 No acute intervention. (2) Cirrhosis of liver Qualifiers: Ascites presence: with ascites Is this a current diagnosis for this admission?: Yes Plan: Because of episodes of confusion we did check his ammonia level. It is normal. He has had chronic hyperbilirubinemia. This can contribute to encephalopathy. (3) End-stage liver disease Is this a current diagnosis for this admission?: Yes Plan: Will likely need repeated paracenteses. He is on Aldactone. (4) Acute kidney injury Is this a current diagnosis for this admission?: Yes Plan: Resolved (5) Hepatic encephalopathy Is this a current diagnosis for this admission?: Yes Plan: Likely a cumulative from long-term alcohol, tobacco and drug use. He in fact told 1 of the nurses he really wants a hit of crack. He is very weak. He is very unsafe to get out of bed on his own. I will start a very low-dose medication (likely Zyprexa) 2) decrease his restlessness but not over sedate him. - Time Time Spent with patient: 15-24 minutes Medications reviewed and adjusted accordingly: Yes Anticipated discharge: SNF
[2018-06-28] MEDS ORDERED: OLANZAPINE 2.5 MG TABLET PO ONE (15:45)
[2018-06-28] MEDS: TAMSULOSIN HCL 0.4 MG CAP.SR.24H PO SCH (17:44)
[2018-06-28] MEDS: HALOPERIDOL LACTATE INJ 5 MG/1 ML VIAL IV PRN (19:15)
[2018-06-28] MEDS ORDERED: ARIPIPRAZOLE 5 MG TABLET PO ONE (22:00)
[2018-06-28] MEDS: AMITRIPTYLINE HCL 50 MG TABLET PO SCH (22:05)
[2018-06-28] MEDS: LIDOCAINE 5% (700 MG) TRANSDERMAL ADH..PATCH TP SCH (22:05)
[2018-06-29] MEDS: LANSOPRAZOLE 15 MG TAB.RAP.DR PO SCH ×2 (05:47→18:06)
[2018-06-29] MEDS: POTASSIUM CHLORIDE 10 MEQ CAPSULE.ER PO SCH ×3 (05:47→21:20)
[2018-06-29] MEDS: HALOPERIDOL LACTATE INJ 5 MG/1 ML VIAL IV PRN (07:22)
[2018-06-29] MEDS: INSULIN LISPRO 100 UNIT/ML 3 ML VIAL SUBCUT PRN ×2 (07:45→21:24)
--- NOTE | 2018-06-29 08:19 | EKG REPORT ---
SEVERITY:- OTHERWISE NORMAL ECG - SINUS TACHYCARDIA : Confirmed by: Luisa Beasley MD 29-Jun-2018 08:19:12
[2018-06-29] MEDS: SPIRONOLACTONE 25 MG TABLET PO SCH (09:56)
[2018-06-29] MEDS: DOCUSATE SODIUM 100 MG CAPSULE PO SCH (09:56)
[2018-06-29] MEDS: MAGNESIUM OXIDE 400 MG TABLET PO SCH ×2 (09:58→18:06)
[2018-06-29] MEDS: FUROSEMIDE 40 MG TABLET PO SCH (09:58)
[2018-06-29] MEDS: THIAMINE HCL 100 MG TABLET PO SCH (09:58)
[2018-06-29] MEDS: FOLIC ACID 1 MG TABLET PO SCH (09:58)
[2018-06-29] MEDS ORDERED: OLANZAPINE 2.5 MG TABLET PO SCH (10:00)
--- NOTE | 2018-06-29 13:17 | PDOC PROGRESS REPORT ---
Subjective Progress Note for:: 06/29/18 Subjective:: The patient is preparing for his BiPAP. He still has significant ascites leak from the paracentesis site. He did exhibit some agitation last evening. This could be part of a episode. Reason For Visit: UTI,DEEDEE,END STAGE LIVER DISEASE Physical Exam Vital Signs: Temp Pulse Resp BP Pulse Ox 98.2 F 117 H 19 151/69 H 92 06/29/18 07:20 06/29/18 07:20 06/29/18 07:20 06/29/18 07:20 06/29/18 07:20 Intake & Output 06/28/18 06/29/18 06/30/18 06:59 06:59 06:59 Intake Total 784 266 Output Total 1575 500 Balance -791 -234 Weight 118.3 kg 114.3 kg General appearance: PRESENT: no acute distress, cooperative Head exam: PRESENT: normocephalic Respiratory exam: PRESENT: clear to auscultation leno, symmetrical, unlabored. ABSENT: rales, rhonchi, wheezes Cardiovascular exam: PRESENT: RRR, +S1, +S2 GI/Abdominal exam: PRESENT: normal bowel sounds, soft, other - Soaked gauze over the right side abdominal paracentesis site.. ABSENT: tenderness Gentrourinary exam: ABSENT: scrotal swelling, indwelling catheter Extremities exam: ABSENT: calf tenderness, joint swelling Neurological exam: PRESENT: alert, awake, oriented to person, oriented to place, other - Still with slight left facial droop Psychiatric exam: PRESENT: appropriate affect, normal mood. ABSENT: agitated, anxious Results Laboratory Results: 06/27/18 05:26 06/27/18 05:26 Impressions: Knee X-Ray 06/18/18 11:46 IMPRESSION: Degenerative changes without evidence of fracture. Paracentesis Ultrasound 06/27/18 08:00 IMPRESSION: SUCCESSFUL ULTRASOUND GUIDED PARACENTESIS. Assessment & Plan - Diagnosis (1) Tatum's palsy Is this a current diagnosis for this admission?: Yes Plan: Continue conservative care and monitor for improvement (2) Cirrhosis of liver Qualifiers: Ascites presence: with ascites Is this a current diagnosis for this admission?: Yes Plan: Transaminases stable. We will monitor ascites and treat with paracentesis. Monitor for oral anticoagulation. Continue spironolactone. (3) End-stage liver disease Is this a current diagnosis for this admission?: Yes Plan: Conservative treatment. Symptom management. (4) Acute kidney injury Is this a current diagnosis for this admission?: Yes Plan: Resolved (5) Hepatic encephalopathy Is this a current diagnosis for this admission?: Yes Plan: Despite a normal ammonia level the encephalopathy is most likely due to sustained and chronic alcohol use as well as his history of substance abuse (up until 3 months ago). He can sometimes be disinhibited and trying to get out of bed on his own. He pulled his Polk catheter out. We will try low-dose Haldol to help with his symptom management. (6) Hepatitis C Qualifiers: Viral hepatitis chronicity: chronic Hepatic coma status: without hepatic coma Qualified Code(s): B18.2 - Chronic viral hepatitis C Is this a current diagnosis for this admission?: Yes Plan: Patient with chronic hepatitis C. Certainly contributing to end-stage liver disease. (7) Ascites Qualifiers: Ascites type: due to alcoholic cirrhosis Qualified Code(s): K70.31 - Alcoholic cirrhosis of liver with ascites Is this a current diagnosis for this admission?: Yes Plan: The patient has a had 2 paracentesis procedures since admission. More than 6 L of fluid has been removed. At the site of the most recent paracentesis the patient still is leaking fluid. We will try compression dressings and see if the patient can lay on his left side. This may help reduce hydrostatic pressure through the needle tract and stop the fluid leak. - Time Time Spent with patient: Less than 15 minutes Medications reviewed and adjusted accordingly: Yes Anticipated discharge: SNF
[2018-06-29] MEDS: TAMSULOSIN HCL 0.4 MG CAP.SR.24H PO SCH (18:06)
[2018-06-29] MEDS: AMITRIPTYLINE HCL 50 MG TABLET PO SCH (21:20)
[2018-06-29] MEDS: HALOPERIDOL 1 MG TABLET PO SCH (21:20)
[2018-06-29] MEDS: LIDOCAINE 5% (700 MG) TRANSDERMAL ADH..PATCH TP SCH (21:23)
[2018-06-29] MEDS ORDERED: HALOPERIDOL 2 MG TABLET PO SCH (22:00)
[2018-06-30 05:12] LABS: INTERNATIONAL RATION (INR) 1.78; PROTHROMBIN TIME 21.6 SEC (11.4-15.4)
[2018-06-30 05:19] LABS: HEMATOCRIT 34.9 % (37.9-51.0); HEMOGLOBIN 11.1 g/dL (13.5-17.0); MEAN CORPUSCULAR HGB CONC 31.7 g/dL (32.0-36.0); MEAN CORPUSCULAR VOLUME 73 fl (80-97); RED BLOOD COUNT 4.81 10^6/uL (4.35-5.55); RED CELL DISTRIBUTION WIDTH 23.8 % (11.5-14.0); WHITE BLOOD COUNT 5.4 10^3/uL (4.0-10.5)
[2018-06-30 05:43] LABS: PLATELET COUNT 81 10^3/uL (150-450)
[2018-06-30 05:45] LABS: ALANINE AMINOTRANSFERASE 78 U/L (21-72); ALBUMIN 2.8 g/dL (3.5-5.0); ALKALINE PHOSPHATASE 97 U/L (38-126); ANION GAP 10 (5-19); ASPARTATE AMINO TRANSFERASE 150 U/L (17-59); BILIRUBIN,DIRECT 5.9 mg/dL (0.0-0.4); BILIRUBIN,TOTAL 8.4 mg/dL (0.2-1.3); BLOOD UREA NITROGEN 16 mg/dL (7-20); CALCIUM 9.1 mg/dL (8.4-10.2); CARBON DIOXIDE 24 mmol/L (22-30); CHLORIDE 101 mmol/L (98-107); GLUCOSE 156 mg/dL (75-110); POTASSIUM 4.4 mmol/L (3.6-5.0); SODIUM 134.8 mmol/L (137-145); TOTAL PROTEIN 7.1 g/dL (6.3-8.2)
[2018-06-30] MEDS: LANSOPRAZOLE 15 MG TAB.RAP.DR PO SCH ×2 (06:57→16:23)
[2018-06-30] MEDS: POTASSIUM CHLORIDE 10 MEQ CAPSULE.ER PO SCH ×2 (06:57→16:22)
[2018-06-30] MEDS: IPRATROPIUM/ALBUTEROL 0.5-2.5 MG/3 ML AMPUL NEB PRN (08:00)
[2018-06-30] MEDS: THIAMINE HCL 100 MG TABLET PO SCH ×2 (09:35→12:38)
[2018-06-30] MEDS: MAGNESIUM OXIDE 400 MG TABLET PO SCH ×4 (09:35→18:09)
[2018-06-30] MEDS: HALOPERIDOL 1 MG TABLET PO SCH ×2 (09:36→12:28)
[2018-06-30] MEDS: FOLIC ACID 1 MG TABLET PO SCH ×2 (09:37→12:37)
[2018-06-30] MEDS: DOCUSATE SODIUM 100 MG CAPSULE PO SCH (10:06)
[2018-06-30] MEDS: HALOPERIDOL LACTATE INJ 5 MG/1 ML VIAL IV PRN (10:54)
[2018-06-30] MEDS: FUROSEMIDE 40 MG TABLET PO SCH (12:36)
[2018-06-30] MEDS: SPIRONOLACTONE 25 MG TABLET PO SCH (12:37)
--- NOTE | 2018-06-30 13:06 | PDOC PROGRESS REPORT ---
Subjective Progress Note for:: 06/30/18 Subjective:: Patient was refusing medications earlier. He told me that he does not like the amitriptyline. The paracentesis site is still leaking fluid. He also complains of pain in his leg and wants narcotic analgesia. He was on large doses of opiates in the past and is known to abuse his medications. Reason For Visit: UTI,DEEDEE,END STAGE LIVER DISEASE Physical Exam Vital Signs: Temp Pulse Resp BP Pulse Ox 97.8 F 106 H 20 159/76 H 92 06/30/18 09:43 06/30/18 09:43 06/30/18 09:43 06/30/18 09:43 06/30/18 09:43 Intake & Output 06/29/18 06/30/18 07/01/18 06:59 06:59 06:59 Intake Total 266 350 Output Total 500 Balance -234 350 Weight 114.3 kg 115.1 kg General appearance: PRESENT: no acute distress, cooperative Head exam: PRESENT: normocephalic, other - Still with facial droop Eye exam: PRESENT: scleral icterus Ear exam: PRESENT: normal external ear exam Respiratory exam: PRESENT: decreased breath sounds - At bases, symmetrical, unlabored. ABSENT: accessory muscle use, rhonchi, wheezes Cardiovascular exam: PRESENT: RRR, +S1, +S2 GI/Abdominal exam: PRESENT: distended, soft, other - Still leaking ascites at paracentesis site. ABSENT: tenderness Neurological exam: PRESENT: alert, awake, oriented to person Psychiatric exam: PRESENT: flat affect. ABSENT: agitated, anxious Focused psych exam: ABSENT: restlessness Results Laboratory Results: 06/30/18 04:09 06/30/18 04:09 06/30/18 06/30/18 04:09 04:09 WBC 5.4 RBC 4.81 Hgb 11.1 L Hct 34.9 L MCV 73 L MCH 23.0 L MCHC 31.7 L RDW 23.8 H Plt Count 81 L Sodium 134.8 L Potassium 4.4 Chloride 101 Carbon Dioxide 24 Anion Gap 10 BUN 16 Creatinine 0.80 Est GFR ( Amer) > 60 Est GFR (Non-Af Amer) > 60 Glucose 156 H Calcium 9.1 Total Bilirubin 8.4 H AST 150 H ALT 78 H Alkaline Phosphatase 97 Total Protein 7.1 Albumin 2.8 L Impressions: Knee X-Ray 06/18/18 11:46 IMPRESSION: Degenerative changes without evidence of fracture. Paracentesis Ultrasound 06/27/18 08:00 IMPRESSION: SUCCESSFUL ULTRASOUND GUIDED PARACENTESIS. Assessment & Plan - Diagnosis (1) Tatum's palsy Is this a current diagnosis for this admission?: Yes Plan: No active intervention. Should resolve spontaneously over time. (2) Cirrhosis of liver Qualifiers: Ascites presence: with ascites Is this a current diagnosis for this admission?: Yes Plan: End-stage. Aldactone and furosemide for ascites. We will try and avoid acetaminophen considering his liver failure. (3) End-stage liver disease Is this a current diagnosis for this admission?: Yes Plan: Interventions as above. No realistic likelihood of improvement. (4) Acute kidney injury Is this a current diagnosis for this admission?: Yes Plan: Resolved (5) Hepatic encephalopathy Is this a current diagnosis for this admission?: Yes Plan: Ammonia level was normal at last check. Continued hyperbilirubinemia. This can contribute to encephalopathy. The patient did report that the reason he did not take his medications earlier was because he does not like the amitriptyline. It makes him feel funny. He only gets amitriptyline at night. I told him I would discontinue the amitriptyline. I did add trazodone to help with sleep. He seems to be tolerating the Haldol by mouth twice daily. I believe he has been out of his restraints today. (6) Hepatitis C Qualifiers: Viral hepatitis chronicity: chronic Hepatic coma status: without hepatic coma Qualified Code(s): B18.2 - Chronic viral hepatitis C Is this a current diagnosis for this admission?: Yes Plan: Chronic. Also contributing to hepatic failure. (7) Ascites Qualifiers: Ascites type: due to alcoholic cirrhosis Qualified Code(s): K70.31 - Alcoholic cirrhosis of liver with ascites Is this a current diagnosis for this admission?: Yes Plan: Recently had second paracentesis of this admission. The site is still leaking fluid. Continue gauze dressings. It should stop spontaneously. - Time Time Spent with patient: Less than 15 minutes Medications reviewed and adjusted accordingly: Yes Anticipated discharge: SNF
[2018-06-30] MEDS: INSULIN LISPRO 100 UNIT/ML 3 ML VIAL SUBCUT PRN (16:19)
[2018-06-30] MEDS: NAPROXEN 250 MG TABLET PO PRN (16:48)
[2018-06-30] MEDS: TAMSULOSIN HCL 0.4 MG CAP.SR.24H PO SCH ×2 (18:00→18:09)
[2018-06-30] MEDS: OXYCODONE HCL IR 5 MG TABLET PO PRN (22:16)
[2018-07-01] MEDS: TRAZODONE HCL 50 MG TABLET PO SCH ×2 (02:18→21:53)
[2018-07-01] MEDS: POTASSIUM CHLORIDE 10 MEQ CAPSULE.ER PO SCH ×4 (02:19→21:59)
[2018-07-01] MEDS: HALOPERIDOL 1 MG TABLET PO SCH ×2 (02:19→09:53)
[2018-07-01] MEDS: LIDOCAINE 5% (700 MG) TRANSDERMAL ADH..PATCH TP SCH ×2 (02:19→21:53)
[2018-07-01] MEDS ORDERED: CARBOXYMETHYLCELLULOSE SOD 0.5% 0.4 ML DROPERETTE OU PRN (03:44)
[2018-07-01] MEDS: LANSOPRAZOLE 15 MG TAB.RAP.DR PO SCH ×2 (06:03→17:13)
[2018-07-01] MEDS: NAPROXEN 250 MG TABLET PO PRN (06:03)
[2018-07-01] MEDS: INSULIN LISPRO 100 UNIT/ML 3 ML VIAL SUBCUT PRN (08:23)
[2018-07-01] MEDS: SPIRONOLACTONE 25 MG TABLET PO SCH (09:54)
[2018-07-01] MEDS: FOLIC ACID 1 MG TABLET PO SCH (10:02)
[2018-07-01] MEDS: THIAMINE HCL 100 MG TABLET PO SCH (10:02)
[2018-07-01] MEDS: FUROSEMIDE 40 MG TABLET PO SCH (10:02)
[2018-07-01] MEDS: DOCUSATE SODIUM 100 MG CAPSULE PO SCH (10:08)
[2018-07-01] MEDS: MAGNESIUM OXIDE 400 MG TABLET PO SCH ×2 (10:09→17:13)
--- NOTE | 2018-07-01 17:10 | PDOC PROGRESS REPORT ---
Subjective Progress Note for:: 07/01/18 Subjective:: states his right leg hurts all over, states his back hurts, states his abdomen hurts. called by nursing today that his paracentesis since is still leaking- clear fluid. he denies all other acute complaints at this time Reason For Visit: UTI,DEEDEE,END STAGE LIVER DISEASE Physical Exam Vital Signs: Temp Pulse Resp BP Pulse Ox 98.3 F 109 H 18 141/79 H 95 07/01/18 16:00 07/01/18 16:00 07/01/18 16:00 07/01/18 16:00 07/01/18 16:00 Intake & Output 06/30/18 07/01/18 07/02/18 06:59 06:59 06:59 Intake Total 350 1992 1094 Output Total 400 200 Balance 350 1592 894 Weight 253 lb 12.033 oz General appearance: PRESENT: no acute distress, disheveled, obese Head exam: PRESENT: atraumatic, normocephalic Eye exam: PRESENT: conjunctival injection - right Ear exam: PRESENT: normal external ear exam Neck exam: ABSENT: tracheal deviation Respiratory exam: PRESENT: clear to auscultation leno, symmetrical Cardiovascular exam: PRESENT: +S1, +S2 Pulses: PRESENT: +1 pedal pulses bilateral GI/Abdominal exam: PRESENT: ascites, distended, hypoactive bowel sounds, tenderness - mild diffuse TTP in all quadrants Extremities exam: PRESENT: pedal edema - trace edema Neurological exam: PRESENT: alert, awake, oriented to person, other - left facial droop Skin exam: PRESENT: dry, warm Results Laboratory Results: 06/30/18 04:09 06/30/18 04:09 Impressions: Knee X-Ray 06/18/18 11:46 IMPRESSION: Degenerative changes without evidence of fracture. Paracentesis Ultrasound 06/27/18 08:00 IMPRESSION: SUCCESSFUL ULTRASOUND GUIDED PARACENTESIS. Assessment & Plan - Diagnosis (1) Tatum's palsy Is this a current diagnosis for this admission?: Yes (2) Cirrhosis of liver Qualifiers: Ascites presence: with ascites Is this a current diagnosis for this admission?: Yes (3) End-stage liver disease Is this a current diagnosis for this admission?: Yes (4) Hepatic encephalopathy Is this a current diagnosis for this admission?: Yes (5) Hepatitis C Qualifiers: Viral hepatitis chronicity: chronic Hepatic coma status: without hepatic coma Qualified Code(s): B18.2 - Chronic viral hepatitis C Is this a current diagnosis for this admission?: Yes (6) Thrombocytopenia Is this a current diagnosis for this admission?: Yes - Plan Summary Plan Summary: End stage liver disease- c/w aldactone and lasix. s/p paracentesis x2 06/20 and 06/27 with >3L output each time. i think he's getting to a point where he will need serial taps to keep his ascites down. unfortunately this will likely continue to recur even with medical management. there was ?hospice consult done initially on admission- not sure if he did speak with anyone about this. per nursing his daughter is next of kin- will try and reach out to her tomorrow and see what she has to say about him. his abdominal site does have small leak since the paracentesis on 06/27- will apply pressure dressing- as he accumulates more fluid this may worsen. will get surgery to look at it tomorrow if possible. Thrombocytopenia- likely 2/2 to cirrhosis.
[2018-07-01] MEDS: TAMSULOSIN HCL 0.4 MG CAP.SR.24H PO SCH (17:14)
[2018-07-01] MEDS ORDERED: HALOPERIDOL 1 MG TABLET PO PRN (17:39)
--- NOTE | 2018-07-01 18:41 | Progress Note ---
Provider Note Provider Note: called with daughter over the phone- spoke and discussed about patient. answered all her questions. she would like me to reach out to a tertiary facility for GI consult and possible further management of his Cirrhosis. i will see if we have GI here or we may need to reach out to [facility] since daughter lives in [place] and it would be close to her
[2018-07-02] MEDS: POTASSIUM CHLORIDE 10 MEQ CAPSULE.ER PO SCH ×3 (05:16→23:19)
[2018-07-02] MEDS: OXYCODONE HCL IR 5 MG TABLET PO PRN ×3 (05:17→18:26)
[2018-07-02] MEDS: LANSOPRAZOLE 15 MG TAB.RAP.DR PO SCH ×2 (05:17→17:05)
[2018-07-02] MEDS: SPIRONOLACTONE 25 MG TABLET PO SCH (09:04)
[2018-07-02] MEDS: FUROSEMIDE 40 MG TABLET PO SCH (09:04)
[2018-07-02] MEDS: MAGNESIUM OXIDE 400 MG TABLET PO SCH ×2 (09:04→17:05)
[2018-07-02] MEDS: FOLIC ACID 1 MG TABLET PO SCH (09:04)
[2018-07-02] MEDS: DOCUSATE SODIUM 100 MG CAPSULE PO SCH (09:04)
[2018-07-02] MEDS: THIAMINE HCL 100 MG TABLET PO SCH (09:04)
[2018-07-02] MEDS: TAMSULOSIN HCL 0.4 MG CAP.SR.24H PO SCH (17:08)
[2018-07-02] MEDS: INSULIN LISPRO 100 UNIT/ML 3 ML VIAL SUBCUT PRN (17:11)
--- NOTE | 2018-07-02 17:43 | PDOC PROGRESS REPORT ---
Subjective Progress Note for:: 07/02/18 Subjective:: spoke with patient this morning- he feels better but his stomach is getting larger he states. also c/o knee pain. states his abdominal area where the paracentesis was done is still leaking some clear fluid- i discussed with him about talk to our GI tomorrow for a consult regarding his cirrhosis. he's agreeable. i advised him to talk to his daughter today and letting her know that we will await any transfers at this time. Reason For Visit: UTI,DEEDEE,END STAGE LIVER DISEASE Physical Exam Vital Signs: Temp Pulse Resp BP Pulse Ox 98.1 F 107 H 17 150/74 H 94 07/02/18 07:17 07/02/18 07:17 07/02/18 07:17 07/02/18 07:17 07/02/18 07:17 Intake & Output 07/01/18 07/02/18 07/03/18 06:59 06:59 06:59 Intake Total 1992 1811 Output Total 400 450 Balance 1592 1361 Weight 261 lb 3.964 oz General appearance: PRESENT: no acute distress, other - appears older than stated age Head exam: PRESENT: atraumatic, normocephalic Eye exam: PRESENT: EOMI, PERRLA Ear exam: PRESENT: normal external ear exam Mouth exam: PRESENT: tongue midline Neck exam: ABSENT: tracheal deviation Respiratory exam: PRESENT: clear to auscultation leno, symmetrical Cardiovascular exam: PRESENT: +S1, +S2 Pulses: PRESENT: +1 pedal pulses bilateral GI/Abdominal exam: PRESENT: ascites, distended, hypoactive bowel sounds, tenderness - diffuse mild TTP in all quadrants, other - RLQ- dressing noted- cleany and dry Musculoskeletal exam: PRESENT: other - right knee small area of dressing noted for his superficial skin wound Neurological exam: PRESENT: alert, awake, oriented to person, oriented to place, oriented to time, CN II-XII grossly intact Skin exam: PRESENT: dry, warm Results Laboratory Results: 06/30/18 04:09 06/30/18 04:09 Impressions: Knee X-Ray 06/18/18 11:46 IMPRESSION: Degenerative changes without evidence of fracture. Paracentesis Ultrasound 06/27/18 08:00 IMPRESSION: SUCCESSFUL ULTRASOUND GUIDED PARACENTESIS. Assessment & Plan - Diagnosis (1) Tatum's palsy Is this a current diagnosis for this admission?: Yes (2) Cirrhosis of liver Qualifiers: Ascites presence: with ascites Is this a current diagnosis for this admission?: Yes (3) End-stage liver disease Is this a current diagnosis for this admission?: Yes (4) Hepatic encephalopathy Is this a current diagnosis for this admission?: Yes (5) Hepatitis C Qualifiers: Viral hepatitis chronicity: chronic Hepatic coma status: without hepatic coma Qualified Code(s): B18.2 - Chronic viral hepatitis C Is this a current diagnosis for this admission?: Yes (6) Thrombocytopenia Is this a current diagnosis for this admission?: Yes - Plan Summary Plan Summary: End stage liver disease- c/w aldactone and lasix. s/p paracentesis x2 06/20 and 06/27 with >3L output each time. i think he's getting to a point where he will need serial taps to keep his ascites down. unfortunately this will likely contin ue to recur even with medical management. there was ?hospice consult done initially on admission- not sure if he did speak with anyone about this. per nursing his daughter is next of kin-I did speak with his daughter yesterday about his condition and she was interested in transferring him to [place] [id number] GI follow-up. I spoke with our hospital today and we do have GI on 07/03/18-I spoke with patient today about holding off on transfer and talking to our GI doctor here about his cirrhosis and prognosis. He is agreeable to this plan. His meld score initially was 23. He continues to have some clear fluid drainage from his most recent paracentesis. Today I spoke with him and he was a little bit d epressed and states that "I just want to be comfortable doc". Thrombocytopenia-likely secondary to cirrhosis
[2018-07-02] MEDS: TRAZODONE HCL 50 MG TABLET PO SCH (23:19)
[2018-07-02] MEDS: LIDOCAINE 5% (700 MG) TRANSDERMAL ADH..PATCH TP SCH (23:20)
[2018-07-03] MEDS: HALOPERIDOL LACTATE INJ 5 MG/1 ML VIAL IV PRN ×2 (00:13→20:26)
[2018-07-03] MEDS: OXYCODONE HCL IR 5 MG TABLET PO PRN ×3 (00:28→19:28)
[2018-07-03] MEDS: LANSOPRAZOLE 15 MG TAB.RAP.DR PO SCH ×2 (05:29→19:31)
[2018-07-03] MEDS: POTASSIUM CHLORIDE 10 MEQ CAPSULE.ER PO SCH ×3 (05:29→23:08)
[2018-07-03 08:57] LABS: ABSOLUTE BASOPHILS # (AUTO) 0.1 10^3/uL (0.0-0.2); ABSOLUTE EOSINOPHILS # (AUTO) 0.2 10^3/uL (0.0-0.6); ABSOLUTE LYMPHOCYTES (AUTO) 1.2 10^3/uL (0.5-4.7); ABSOLUTE MONOCYTES (AUTO) 0.6 10^3/uL (0.1-1.4); BASOPHILS % (AUTO) 1.2 % (0-2); HEMATOCRIT 35.2 % (37.9-51.0); HEMOGLOBIN 11.2 g/dL (13.5-17.0); INTERNATIONAL RATION (INR) 1.46; MEAN CORPUSCULAR HEMOGLOBIN 23.2 pg (27.0-33.4); MEAN CORPUSCULAR HGB CONC 31.7 g/dL (32.0-36.0); MEAN CORPUSCULAR VOLUME 73 fl (80-97); MONOCYTES % (AUTO) 10.2 % (3-13); PLATELET COUNT 126 10^3/uL (150-450); PROTHROMBIN TIME 18.5 SEC (11.4-15.4); RED BLOOD COUNT 4.82 10^6/uL (4.35-5.55); RED CELL DISTRIBUTION WIDTH 24.9 % (11.5-14.0); SEGMENTED NEUTROPHILS % (AUTO) 65.6 % (42-78); TOTAL CELLS COUNTED % (AUTO) 100 %; WHITE BLOOD COUNT 6.2 10^3/uL (4.0-10.5)
[2018-07-03 09:15] LABS: ALANINE AMINOTRANSFERASE 147 U/L (21-72); ALBUMIN 2.8 g/dL (3.5-5.0); ALKALINE PHOSPHATASE 128 U/L (38-126); ANION GAP 13 (5-19); ASPARTATE AMINO TRANSFERASE 452 U/L (17-59); BILIRUBIN,TOTAL 9.9 mg/dL (0.2-1.3); BLOOD UREA NITROGEN 18 mg/dL (7-20); CALCIUM 9.2 mg/dL (8.4-10.2); CARBON DIOXIDE 19 mmol/L (22-30); CHLORIDE 99 mmol/L (98-107); GLUCOSE 234 mg/dL (75-110); POTASSIUM 5.1 mmol/L (3.6-5.0); SODIUM 130.5 mmol/L (137-145); TOTAL PROTEIN 7.2 g/dL (6.3-8.2)
[2018-07-03 09:36] LABS: POLYCHROMASIA SLIGHT
[2018-07-03 09:37] LABS: ANISOCYTOSIS 3+; HYPOCHROMASIA 1+; OVALOCYTES 1+; POIKILOCYTOSIS 1+
[2018-07-03 09:38] LABS: PLATELET CLUMPS PRESENT
[2018-07-03] MEDS ORDERED: CEFTRIAXONE 1 GM/D5W RTU 1 GM/50 ML RTUPB IV SCH (10:00)
[2018-07-03] MEDS: SPIRONOLACTONE 25 MG TABLET PO SCH ×2 (10:36→23:08)
[2018-07-03] MEDS: FUROSEMIDE 40 MG TABLET PO SCH ×2 (10:36→23:09)
[2018-07-03] MEDS: MAGNESIUM OXIDE 400 MG TABLET PO SCH ×2 (10:40→19:32)
[2018-07-03] MEDS: FOLIC ACID 1 MG TABLET PO SCH (10:40)
[2018-07-03] MEDS: THIAMINE HCL 100 MG TABLET PO SCH (10:41)
[2018-07-03] MEDS: DOCUSATE SODIUM 100 MG CAPSULE PO SCH (10:43)
--- NOTE | 2018-07-03 10:53 | PDOC CONSULTATION ---
Consultation Consult Date: 07/03/18 Attending physician:: DAYNE MEADOWS Consult reason:: recurrent ascites History of Present Illness Admission Date/PCP: 06/18/18 15:04 History of Present Illness: ELIS GRIGGS is a 67 year old male patient was admitted after a recent fall he is a patient that is primary to [facility] he has a history of hepC and was non complaint with work up and subsequent treatment patient was admitted and has been recurrent ascites requiring 2 previous paracentesis he does have elevated LFT's that has been trending down, his PT is elevated but his renal function is normal review of his medications show that he is on Lasix and Aldactone but there is room to increase and maximize the dosing previously had encephalopathy but that has resolved more lucid previous seen for potential Hep C treatment but was non complaint now has worsening ascites consultation has been requested Hgb is stable, no bleeding noted Past Medical History Cardiac Medical History: Reports: Hypertension Denies: Congestive Heart Failure, Coronary Artery Disease, DVT, Myocardial Infarction, Hyperlipidema, Pulmonary Embolism Pulmonary Medical History: Denies: Asthma, Chronic Obstructive Pulmonary Disease (COPD) EENT Medical History: Reports: None Neurological Medical History: Denies: Ischemic CVA, Seizures Endocrine Medical History: Reports: Diabetes Mellitus Type 2, Obesity Denies: Hyperthyroidism, Hypothyroidism Renal/ Medical History: Reports: None Malignancy Medical History: Reports: None GI Medical History: Reports: Cirrhosis, Gastroesophageal Reflux Disease, H epatitis - Hep C, diagnosed 21 years ago; untreated. Musculoskeltal Medical History: Denies: Arthritis Skin Medical History: Reports: None Psychiatric Medical History: Reports: Alcohol Dependency, Depression, Substance Abuse, Tobacco Dependency Traumatic Medical History: Reports: None Hematology: Reports: Anemia Infectious Medical History: Denies: Methicillin-Resistant Staph Aureus Past Surgical History Past Surgical History: Reports: Orthopedic Surgery - R Knee surgery 4. Social History Lives with: Alone Smoking Status: Former Smoker Number of Years Smokin Last Time Smoked: 02/24/2018 Frequency of Alcohol Use: Heavy Hx Recreational Drug Use: No Drugs: Marijuana Hx Prescription Drug Abuse: No - Advance Directive Resuscitation Status: Do Not Resuscitate Family History Family History: CAD Parental Family History Reviewed: Yes Children Family History Reviewed: Unknown Sibling(s) Family History Reviewed.: Unknown Medication/Allergy Home Medications: Amitriptyline HCl [Elavil 100 mg Tablet] 100 mg PO QHS 06/18/18 Aspirin [Aspirin 325 mg Tablet] 325 mg PO DAILY 06/18/18 Ibuprofen [Motrin 800 mg Tablet] 800 mg PO BIDP PRN 06/18/18 Allergies/Adverse Reactions: Penicillins Allergy (Severe, Verified 06/18/18 17:17) mouth swelling Review of Systems Constitutional: ABSENT: fever(s), headache(s), night sweats, weakness Eyes: ABSENT: visual disturbances Ears: ABSENT: hearing changes Nose, Mouth, and Throat: ABSENT: mouth pain, sore throat Cardiovascular: ABSENT: edema, orthropnea, palpitations Respiratory: ABSENT: dyspnea, hemoptysis Gastrointestinal: ABSENT: melena, nausea, vomiting Genitourinary: ABSENT: dysuria, hematuria Musculoskeletal: ABSENT: deformity, joint swelling Integumentary: ABSENT: pruritus Neurological: ABSENT: syncope, tingling, tremor(s), vertigo Endocrine: PRESENT: polydipsia. ABSENT: polyphagia, polyuria Hematologic/Lymphatic: ABSENT: easy bruising Physical Exam Vital Signs: Temp Pulse Resp BP Pulse Ox 98.2 F 110 H 17 150/69 H 97 07/03/18 07:29 07/03/18 07:29 07/03/18 07:29 07/03/18 07:29 07/03/18 07:29 Intake & Output 07/02/18 07/03/18 07/04/18 06:59 06:59 06:59 Intake Total 1811 1018 Output Total 450 600 Balance 1361 418 Weight 118.5 kg 106.6 kg General appearance: PRESENT: well-developed, well-nourished Head exam: PRESENT: atraumatic, normocephalic Eye exam: PRESENT: EOMI, PERRLA, scleral icterus. ABSENT: periorbital swelling Mouth exam: PRESENT: moist, neck supple Throat exam: ABSENT: tonsillar exudate, tonsillogmegaly Respiratory exam: PRESENT: symmetrical, unlabored. ABSENT: tachypnea, wheezes Cardiovascular exam: PRESENT: RRR, +S1, +S2 GI/Abdominal exam: PRESENT: soft. ABSENT: rebound, rigid, tenderness Extremities exam: ABSENT: joint swelling Musculoskeletal exam: PRESENT: full ROM Neurological exam: PRESENT: oriented to time, oriented to situation, CN II-XII grossly intact Focused psych exam: ABSENT: restlessness Skin exam: PRESENT: normal color. ABSENT: mottled, urticaria, vesicles Results Laboratory Results: 07/03/18 08:36 07/03/18 08:36 07/03/18 07/03/18 08:36 08:36 WBC 6.2 RBC 4.82 Hgb 11.2 L Hct 35.2 L MCV 73 L MCH 23.2 L MCHC 31.7 L RDW 24.9 H Plt Count 126 L Seg Neutrophils % 65.6 Lymphocytes % 20.0 Monocytes % 10.2 Eosinophils % 3.0 Basophils % 1.2 Absolute Neutrophils 4.0 Absolute Lymphocytes 1.2 Absolute Monocytes 0.6 Absolute Eosinophils 0.2 Absolute Basophils 0.1 Sodium 130.5 L Potassium 5.1 H Chloride 99 Carbon Dioxide 19 L Anion Gap 13 BUN 18 Creatinine 0.74 Est GFR ( Amer) > 60 Est GFR (Non-Af Amer) > 60 Glucose 234 H Calcium 9.2 Magnesium 1.8 Total Bilirubin 9.9 H AST 452 H ALT 147 H Alkaline Phosphatase 128 H Total Protein 7.2 Albumin 2.8 L Impressions: Knee X-Ray 06/18/18 11:46 IMPRESSION: Degenerative changes without evidence of fracture. Paracentesis Ultrasound 06/27/18 08:00 IMPRESSION: SUCCESSFUL ULTRASOUND GUIDED PARACENTESIS. Assessment & Plan - Diagnosis (1) Abnormal LFTs Plan: ? possible etiology could be due to possible sepsis, vs decompensation continue to follow normal renal function abnormal INR (2) Cirrhosis of liver Qualifiers: Ascites presence: with ascites Is this a current diagnosis for this admission?: Yes Plan: has had some degree of re-compensation no GI bleeding noted no current SBP untreated Hep C in the past has been non compliant in getting labs done in the past (3) Hepatitis C Qualifiers: Viral hepatitis chronicity: chronic Hepatic coma status: without hepatic coma Qualified Code(s): B18.2 - Chronic viral hepatitis C Is this a current diagnosis for this admission?: Yes Plan: as noted above (4) Ascites Qualifiers: Ascites type: due to alcoholic cirrhosis Qualified Code(s): K70.31 - Alcoholic cirrhosis of liver with ascites Is this a current diagnosis for this admission?: Yes Plan: has had 2 previous paracentesis will need to maximize diuretic therapy Lasix to 40mg BID along with Aldactone 100mg BID adjust diet to low sodium diet to not exceed 2grams per day patient will need prophylactic fluroquinolone to prevent SBP will need CT scan with contrast to make sure no portal vein thrombosis if conservative therapy with diuretics fail, then perhaps consider possible TIPS to be done at a tertiary institutions will follow as needed - Time Time Spent: 50 to 70 Minutes
[2018-07-03] MEDS: INSULIN LISPRO 100 UNIT/ML 3 ML VIAL SUBCUT PRN ×2 (12:40→15:57)
--- NOTE | 2018-07-03 16:51 | PDOC PROGRESS REPORT ---
Subjective Progress Note for:: 07/03/18 Subjective:: States he is feeling better but he still has some abdominal pain and request that his pain medicine be increased. Denies any other acute complaints at this time such as chest pain, nausea vomiting or dizziness. States is difficult to take a deep breath due to his abdominal distention. States that there is still some leakage from the paracentesis site. Reason For Visit: UTI,DEEDEE,END STAGE LIVER DISEASE Physical Exam Vital Signs: Temp Pulse Resp BP Pulse Ox 98.1 F 117 H 17 148/72 H 95 07/03/18 11:33 07/03/18 11:33 07/03/18 11:33 07/03/18 11:33 07/03/18 11:33 Intake & Output 07/02/18 07/03/18 07/04/18 06:59 06:59 06:59 Intake Total 1811 1018 Output Total 450 600 Balance 1361 418 Weight 261 lb 3.964 oz 235 lb 0.204 oz General appearance: PRESENT: no acute distress, disheveled, other - Appears o lder than stated age Head exam: PRESENT: atraumatic, normocephalic Eye exam: PRESENT: EOMI, PERRLA, scleral icterus Ear exam: PRESENT: normal external ear exam Mouth exam: PRESENT: tongue midline Neck exam: ABSENT: tracheal deviation Respiratory exam: PRESENT: clear to auscultation leno, symmetrical Cardiovascular exam: PRESENT: +S1, +S2 Pulses: PRESENT: +1 pedal pulses bilateral GI/Abdominal exam: PRESENT: ascites, distended, hypoactive bowel sounds, soft, other - Distended veins noted Dressing noted-clean dry and intact Extremities exam: PRESENT: +1 edema - Bilateral lower extremity Neurological exam: PRESENT: alert, awake, oriented to person, oriented to place, oriented to time, oriented to situation, other - Right-sided facial droop noted Skin exam: PRESENT: dry, warm Results Laboratory Results: 07/03/18 08:36 07/03/18 08:36 07/03/18 07/03/18 08:36 08:36 WBC 6.2 RBC 4.82 Hgb 11.2 L Hct 35.2 L MCV 73 L MCH 23.2 L MCHC 31.7 L RDW 24.9 H Plt Count 126 L Seg Neutrophils % 65.6 Lymphocytes % 20.0 Monocytes % 10.2 Eosinophils % 3.0 Basophils % 1.2 Absolute Neutrophils 4.0 Absolute Lymphocytes 1.2 Absolute Monocytes 0.6 Absolute Eosinophils 0.2 Absolute Basophils 0.1 Sodium 130.5 L Potassium 5.1 H Chloride 99 Carbon Dioxide 19 L Anion Gap 13 BUN 18 Creatinine 0.74 Est GFR ( Amer) > 60 Est GFR (Non-Af Amer) > 60 Glucose 234 H Calcium 9.2 Magnesium 1.8 Total Bilirubin 9.9 H AST 452 H ALT 147 H Alkaline Phosphatase 128 H Total Protein 7.2 Albumin 2.8 L Impressions: Knee X-Ray 06/18/18 11:46 IMPRESSION: Degenerative changes without evidence of fracture. Paracentesis Ultrasound 06/27/18 08:00 IMPRESSION: SUCCESSFUL ULTRASOUND GUIDED PARACENTESIS. Assessment & Plan - Diagnosis (1) Tatum's palsy Is this a current diagnosis for this admission?: Yes (2) Cirrhosis of liver Qualifiers: Ascites presence: with ascites Is this a current diagnosis for this admission?: Yes (3) End-stage liver disease Is this a current diagnosis for this admission?: Yes (4) Hepatic encephalopathy Is this a current diagnosis for this admission?: Yes (5) Hepatitis C Qualifiers: Viral hepatitis chronicity: chronic Hepatic coma status: without hepatic coma Qualified Code(s): B18.2 - Chronic viral hepatitis C Is this a current diagnosis for this admission?: Yes (6) Thrombocytopenia Is this a current diagnosis for this admission?: Yes - Inpatient Certification Based on my medical assessment, after consideration of the patient's comorbidities, presenting symptoms, or acuity I expect that the services needed warrant INPATIENT care.: Yes I certify that my determination is in accordance with my understanding of Medicare's requirements for reasonable and necessary INPATIENT services [42 CFR 412.3e].: Yes - Plan Summary Plan Summary: End stage liver disease- s/p paracentesis x2- 06/20/18 and 06/27/18 with >3L output each time. i think he's getting to a point where he will need serial taps to keep his ascites down. I have consulted GI today and spoke with physician over the phone. Per GI physician we will maximize his medical therapy by increasing his Lasix and Aldactone at this time. If he should fail on maximum therapy then per GI we should try and call tertiary institution for poss ible TIPS procedure. Will increase his Lasix 40 mg twice daily and Aldactone 100 mg 2 twice daily. Please see consult note from today for further recommendations. GI also recommends CT abdomen pelvis with IV contrast to rule out any portal vein thrombosis. We will order that. GI also recommends empiric treatment with Rocephin for concern of SBP. We will start on IV Rocephin. Cirrhosis of the liver-see above Ascites-most likely he will need another paracentesis in the next 2-3 days. He still draining slightly from the previous paracentesis site and pressure dressing is applied. Thrombocytopenia-likely secondary to cirrhosis I had a long discussion with his daughter Kerri today who lives in [place]. I explained to her about GI recommendations. At this time we will continue with medical management-if he should fail then we would need to call a facility at [place] or [facility] close to where his daughter lives for possible transfer and further management.
--- NOTE | 2018-07-03 18:57 | RADIOLOGY REPORT (SQ) ---
EXAM DESCRIPTION: CT ABD/PELVIS WITH IV ONLY COMPLETED DATE/TIME: 07/03/2018 6:29 pm REASON FOR STUDY: Cirrhosis-concern for portal vein thrombosis COMPARISON: None. TECHNIQUE: CT scan of the abdomen and pelvis performed using helical scanning technique with dynamic intravenous contrast injection. No oral contrast. Images reviewed with lung, soft tissue, and bone windows. Reconstructed coronal and sagittal MPR images reviewed. Delayed images for evaluation of the urinary system also acquired. All images stored on PACS. All CT scanners at this facility use dose modulation, iterative reconstruction, and/or weight based d osing when appropriate to reduce radiation dose to as low as reasonably achievable (ALARA). [facility]: Dose Right [facility]: CareDose [facility]: Dose Right [facility]: Teradose 4D [facility]: RedHelper CONTRAST TYPE AND DOSE: contrast/concentration: Isovue 350.00 mg/ml; Total Contrast Delivered: 99.0 ml; Total Saline Delivered: 56.0 ml RENAL FUNCTION: BUN 18, creatinine 0.74 RADIATION DOSE: CT Rad equipment meets quality standard of care and radiation dose reduction techniq ues were employed. CTDIvol: 20.2 - 20.8 mGy. DLP: 2660 mGy-cm.. LIMITATIONS: None. FINDINGS: LOWER CHEST: There are bilateral pleural effusions and basilar atelectasis right greater t wong left. LIVER: The liver demonstrates a nodular contour. There is heterogeneous enhancement throughout the r ight lobe. Neoplasm cannot be excluded. SPLEEN: There is splenomegaly. No focal splenic masses. PANCREAS: No masses. No significant calcifications. No adjacent inflammation or peripancreatic fluid collections. Pancreatic duct not dilated. GALLBLADDER: No identified stones by CT criteria. No inflammatory changes to suggest cholecystitis. ADRENAL GLANDS: No significant masses or asymmetry. RIGHT KIDNEY AND URETER: No solid masses. No significant calcifications. No hydronephrosis or hyd roureter. LEFT KIDNEY AND URETER: No solid masses. No significant calcifications. No hydronephrosis or hydr oureter. AORTA AND VESSELS: No aneurysm. No dissection. Renal arteries, SMA, celiac without stenosis. The artur n portal vein is patent. Left portal vein is patent. The right main pulmonary vein appears occluded . This could represent thrombosis or tumor involvement. RETROPERITONEUM: No retroperitoneal adenopathy, hemorrhage or masses. BOWEL AND PERITONEAL CAVITY: No masses or inflammatory changes. No free fluid or peritoneal masses. APPENDIX: Normal. PELVIS: No mass. No free fluid. Normal bladder. ABDOMINAL WALL: No masses. No hernias. BONES: No significant or acute findings. OTHER: No other significant finding. IMPRESSION: 1. Cirrhosis with probable large hepatoma. 2. 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 This may represent bland or tumor thrombus. 3. Splenomegaly. TECHNICAL DOCUMENTATION: JOB ID: [id number] Quality ID # [id number]: Final reports with documentation of one or more dose reduction techniques (e.g., Au tomated exposure control, adjustment of the mA and/or kV according to patient size, use of iterative reconstruction technique) 2010 [employer]- All Rights Reserved Reading location - IP/workstation name: [email or web address]
[2018-07-03] MEDS: TAMSULOSIN HCL 0.4 MG CAP.SR.24H PO SCH (19:32)
[2018-07-03] MEDS: TRAZODONE HCL 50 MG TABLET PO SCH (23:08)
[2018-07-03] MEDS: LIDOCAINE 5% (700 MG) TRANSDERMAL ADH..PATCH TP SCH (23:09)
[2018-07-04] MEDS: CEFTRIAXONE 1 GM/D5W RTU 1 GM/50 ML RTUPB IV SCH ×2 (02:28→09:18)
[2018-07-04] MEDS: LANSOPRAZOLE 15 MG TAB.RAP.DR PO SCH ×2 (05:54→17:00)
[2018-07-04] MEDS: POTASSIUM CHLORIDE 10 MEQ CAPSULE.ER PO SCH ×3 (05:54→21:14)
--- NOTE | 2018-07-04 07:40 | PDOC PROGRESS REPORT ---
Subjective Progress Note for:: 07/04/18 Subjective:: patient had CT scan done, findings are concerning due to the fact that there is right portal vein thrombosis along with the fact that there could be a hepatoma in the right lobe of the liver. he continues to have leakage at the previous paracentesis site It is unclear if he had direct percutaneous stick vs using the " Z " technique to minimize leakage, however there is limited options for now. patient's medications have been maximized however he is not a candidate for TIPS placement also due to hepatoma, untreated hep C, he is no longer a candidate for liver tr ansplant patient has a poor half-way prognosis , he has stabilized for now. Reason For Visit: UTI,DEEDEE,END STAGE LIVER DISEASE Physical Exam Vital Signs: Temp Pulse Resp BP Pulse Ox 98.5 F 116 H 18 134/53 H 97 07/04/18 00:09 07/04/18 00:09 07/04/18 00:09 07/04/18 00:09 07/04/18 00:09 Intake & Output 07/03/18 07/04/18 07/05/18 06:59 06:59 06:59 Intake Total 1018 1057 Output Total 600 840 Balance 418 217 Weight 106.6 kg 107.7 kg General appearance: PRESENT: no acute distress, well-developed, well-nourished Head exam: PRESENT: atraumatic, normocephalic Eye exam: PRESENT: EOMI, PERRLA. ABSENT: nystagmus, periorbital swelling Mouth exam: PRESENT: moist, neck supple Throat exam: ABSENT: tonsillar exudate, tonsillogmegaly Neck exam: ABSENT: meningismus, tenderness, thyromegaly Respiratory exam: PRESENT: symmetrical, unlabored. ABSENT: tachypnea, wheezes Cardiovascular exam: PRESENT: RRR, +S1, +S2 GI/Abdominal exam: ABSENT: rebound, rigid, tenderness Extremities exam: PRESENT: +1 edema Neurological exam: PRESENT: oriented to time, oriented to situation, CN II-XII grossly intact Focused psych exam: ABSENT: restlessness Skin exam: PRESENT: normal color. ABSENT: mottled, pallor, urticaria, vesicles Results Laboratory Results: 07/03/18 08:36 07/03/18 08:36 07/03/18 07/03/18 08:36 08:36 WBC 6.2 RBC 4.82 Hgb 11.2 L Hct 35.2 L MCV 73 L MCH 23.2 L MCHC 31.7 L RDW 24.9 H Plt Count 126 L Seg Neutrophils % 65.6 Lymphocytes % 20.0 Monocytes % 10.2 Eosinophils % 3.0 Basophils % 1.2 Absolute Neutrophils 4.0 Absolute Lymphocytes 1.2 Absolute Monocytes 0.6 Absolute Eosinophils 0.2 Absolute Basophils 0.1 Sodium 130.5 L Potassium 5.1 H Chloride 99 Carbon Dioxide 19 L Anion Gap 13 BUN 18 Creatinine 0.74 Est GFR ( Amer) > 60 Est GFR (Non-Af Amer) > 60 Glucose 234 H Calcium 9.2 Magnesium 1.8 Total Bilirubin 9.9 H AST 452 H ALT 147 H Alkaline Phosphatase 128 H Total Protein 7.2 Albumin 2.8 L Impressions: Knee X-Ray 06/18/18 11:46 IMPRESSION: Degenerative changes without evidence of fracture. Paracentesis Ultrasound 06/27/18 08:00 IMPRESSION: SUCCESSFUL ULTRASOUND GUIDED PARACENTESIS. Abdomen/Pelvis CT 07/03/18 00:00 IMPRESSION: 1. Cirrhosis with probable large hepatoma. 2. 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 This may represent bland or tumor thrombus. 3. Splenomegaly. Assessment & Plan - Diagnosis (2) Cirrhosis of liver Qualifiers: Ascites presence: with ascites Is this a current diagnosis for this admission?: Yes Plan: secondary to Hep C, patient may have a hepatoma (3) Hepatitis C Qualifiers: Viral hepatitis chronicity: chronic Hepatic coma status: without hepatic coma Qualified Code(s): B18.2 - Chronic viral hepatitis C Is this a current diagnosis for this admission?: Yes Plan: not treated in the past, not likely to be a candidate for liver transplant (4) Ascites Qualifiers: Ascites type: due to alcoholic cirrhosis Qualified Code(s): K70.31 - Alcoholic cirrhosis of liver with ascites Is this a current diagnosis for this admission?: Yes Plan: recurrent and not likely to be a candidate for TIPS continued leakage at previous site, conservative therapy patient to continue current therapy, will follow as needed. - Time Time Spent with patient: 15-24 minutes
[2018-07-04] MEDS ORDERED: CEFTRIAXONE 1 GM/D5W RTU 1 GM/50 ML RTUPB IV SCH (09:00)
[2018-07-04] MEDS: FUROSEMIDE 40 MG TABLET PO SCH ×3 (09:03→21:45)
[2018-07-04] MEDS: FOLIC ACID 1 MG TABLET PO SCH (09:03)
[2018-07-04] MEDS: MAGNESIUM OXIDE 400 MG TABLET PO SCH ×2 (09:03→18:00)
[2018-07-04] MEDS: THIAMINE HCL 100 MG TABLET PO SCH (09:04)
[2018-07-04] MEDS: SPIRONOLACTONE 25 MG TABLET PO SCH ×2 (09:04→18:00)
[2018-07-04] MEDS: DOCUSATE SODIUM 100 MG CAPSULE PO SCH (09:04)
[2018-07-04] MEDS ORDERED: HALOPERIDOL 1 MG TABLET PO SCH (10:00)
[2018-07-04] MEDS: OXYCODONE HCL IR 5 MG TABLET PO PRN (10:28)
[2018-07-04] MEDS ORDERED: HALOPERIDOL LACTATE INJ 5 MG/1 ML VIAL IV PRN (10:31)
[2018-07-04] MEDS ORDERED: HALOPERIDOL LACTATE INJ 5 MG/1 ML VIAL ONE (12:40)
--- NOTE | 2018-07-04 15:45 | PDOC CONSULTATION ---
Consultation Consult Date: 07/04/18 Consult reason:: Hospice patient, recurrent ascites. History of Present Illness Admission Date/PCP: 06/18/18 15:04 Patient complains of: Abdominal distention, recurrent ascites. History of Present Illness: ELIS GRIGGS is a 67 year old male seen at the request of the hospitalist service. This is a patient with long-standing liver disease. He has reached e nd-stage liver dysfunction. The patient has now agreed to hospice care. Consult has been made for placement of Pleurx catheter for home drainage of his recurrent abdominal ascites. The patient reports significant amounts of distention, pain, and shortness of breath related to the accumulation of ascites. He also reports malaise and fatigue. He has progressive jaundice. He denies chest pain, headache, melena, hematochezia, hematemesis, blurry vision. Past Medical History Cardiac Medical History: Reports: Hypertension Denies: Congestive Heart Failure, Coronary Artery Disease, DVT, Myocardial Infarction, Hyperlipidema, Pulmonary Embolism Pulmonary Medical History: Denies: Asthma, Chronic Obstructive Pulmonary Disease (COPD) EENT Medical History: Reports: None Neurological Medical History: Denies: Ischemic CVA, Seizures Endocrine Medical History: Reports: Diabetes Mellitus Type 2, Obesity Denies: Hyperthyroidism, Hypothyroidism Renal/ Medical History: Reports: None Malignancy Medical History: Reports: None GI Medical History: Reports: Cirrhosis, Gastroesophageal Reflux Disease, Hepatitis - Hep C, diagnosed 21 years ago; untreated. Musculoskeltal Medical History: Denies: Arthritis Skin Medical History: Reports: None Psychiatric Medical History: Reports: Alcohol Dependency, Depression, Substance Abuse, Tobacco Dependency Traumatic Medical History: Reports: None Hematology: Reports: Anemia Infectious Medical History: Denies: Methicillin-Resistant Staph Aureus Past Surgical History Past Surgical History: Reports: Orthopedic Surgery - R Knee surgery 4. Social History Lives with: Alone Smoking Status: Former Smoker Number of Years Smokin Last Time Smoked: 02/24/2018 Frequency of Alcohol Use: Heavy Hx Recreational Drug Use: No Drugs: Marijuana Hx Prescription Drug Abuse: No - Advance Directive Resuscitation Status: Do Not Resuscitate Family History Family History: CAD Parental Family History Reviewed: Yes Children Family History Reviewed: Yes Sibling(s) Family History Reviewed.: Yes Medication/Allergy Home Medications: Amitriptyline HCl [Elavil 100 mg Tablet] 100 mg PO QHS 12/24/18 Aspirin [Aspirin 325 mg Tablet] 325 mg PO DAILY 06/18/18 Ibuprofen [Motrin 800 mg Tablet] 800 mg PO BIDP PRN 06/18/18 Allergies/Adverse Reactions: Penicillins Allergy (Severe, Verified 06/18/18 17:17) mouth swelling Review of Systems Constitutional: PRESENT: anorexia, fatigue, weakness Eyes: ABSENT: visual disturbances Ears: ABSENT: hearing changes Nose, Mouth, and Throat: ABSENT: sore throat Cardiovascular: ABSENT: chest pain Respiratory: PRESENT: dyspnea Gastrointestinal: PRESENT: abdominal pain, bloating. ABSENT: hematemesis, hematochezia, melena, nausea, vomiting Musculoskeletal: ABSENT: back pain Integumentary: ABSENT: pruritus, rash Neurological: PRESENT: confusion - Occasional, dizziness Psychiatric: ABSENT: anxiety, depression Endocrine: PRESENT: cold intolerance Hematologic/Lymphatic: PRESENT: easy bleeding, easy bruising Physical Exam Vital Signs: Temp Pulse Resp BP Pulse Ox 98.0 F 108 H 18 138/72 H 96 07/04/18 07:50 07/04/18 07:50 07/04/18 07:50 07/04/18 07:50 07/04/18 07:50 Intake & Output 07/03/18 07/04/18 07/05/18 06:59 06:59 06:59 Intake Total 1018 1057 455 Output Total 600 840 140 Balance 418 217 315 Weight 106.6 kg 107.7 kg General appearance: PRESENT: no acute distress, disheveled Head exam: PRESENT: atraumatic, normocephalic Eye exam: PRESENT: scleral icterus Mouth exam: PRESENT: neck supple Teeth exam: PRESENT: poor dentation Neck exam: ABSENT: tenderness, thyromegaly, tracheal deviation Respiratory exam: PRESENT: clear to auscultation leno. ABSENT: chest wall tenderness, stridor, tachypnea Cardiovascular exam: PRESENT: RRR Pulses: PRESENT: normal radial pulses Vascular exam: PRESENT: normal capillary refill. ABSENT: pallor GI/Abdominal exam: PRESENT: distended, firm. ABSENT: rebound, rigid, tenderness Rectal exam: PRESENT: deferred Extremities exam: ABSENT: clubbing Musculoskeletal exam: ABSENT: deformity Neurological exam: PRESENT: alert, awake Psychiatric exam: ABSENT: agitated, anxious, depressed Skin exam: PRESENT: jaundice. ABSENT: cyanosis, erythema Results Laboratory Results: 07/03/18 08:36 07/03/18 08:36 Impressions: Knee X-Ray 06/18/18 11:46 IMPRESSION: Degenerative changes without evidence of fracture. Paracentesis Ultrasound 06/27/18 08:00 IMPRESSION: SUCCESSFUL ULTRASOUND GUIDED PARACENTESIS. Abdomen/Pelvis CT 07/03/18 00:00 IMPRESSION: 1. Cirrhosis with probable large hepatoma. 2. 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 This may represent bland or tumor thrombus. 3. Splenomegaly. Assessment & Plan - Diagnosis (1) Ascites Qualifiers: Ascites type: due to alcoholic cirrhosis Qualified Code(s): K70.31 - Alcoholic cirrhosis of liver with ascites Is this a current diagnosis for this admission?: Yes (2) Cirrhosis of liver Qualifiers: Ascites presence: with ascites Is this a current diagnosis for this admission?: Yes (3) End-stage liver disease Is this a current diagnosis for this admission?: Yes - Plan Summary Plan Summary: This is a 67-year-old male with end-stage liver disease and rapidly accumulating ascites. The patient is scheduled to travel to hospice. Prior to that, he will require a means to relieve his abdominal pressure and ascites. I have recommended Pleurx catheter placement. Plan is for catheter insertion tomorrow. I will discuss this with the patient's next of kin. Informed consent to be obtained from her.
[2018-07-04] MEDS: TAMSULOSIN HCL 0.4 MG CAP.SR.24H PO SCH (18:00)
[2018-07-04] MEDS: MORPHINE SULFATE 10 MG/ML INJ IV PRN (18:38)
--- NOTE | 2018-07-04 19:52 | PROGRESS NOTE E ---
Progress Note NAME: ELIS GRIGGS : 1950 AGE: 67Y DATE: 07/04/2018 ROOM: 538 SUBJECTIVE: The patient is lying in bed. The patient is awake and alert. I asked the patient to tell me about his disease. The patient stated, "I am supposed to be within 6 months." I asked the patient to elaborate upon this and the patient stated, "I guess I have just drank myself to ." The patient goes on to state how he should have quit drinking years ago and that he knows he is dying. The patient states that his greatest fear with this is pain. The patient would also like his abdomen to be drained frequently. After much conversation the patient is agreeable to have an indwelling drain placed and would like to have pain management through hospice. Additionally the patient is willing to explore hospice facilities near his daughter in [place]. I have reached out to the casey saw operator regarding this. I have tried to contact the patient's daughter, Kerri, however, she did not answer her phone. REVIEW OF SYSTEMS: The rest of review of systems is negative. MEDICATIONS: Reviewed. OBJECTIVE: GENERAL: The patient is an unfortunate 67-year-old mal who is awake, alert. He is oriented to person, time, place, situation. He is verbal, conversational. Does not appear to be distressed. VITAL SIGNS: Temperature is 98.0, pulse 108, respirations 18, blood pressure is 138/72, oxygen saturation is 96% on room air. SKIN: Jaundiced, dry. No rash. HEENT: Pupils are reactive. Sclerae are icterus. There is no evidence of JVP. CARDIOVASCULAR: Heart is regular. No rub. CHEST: Clear, symmetrical. ABDOMEN: Distended with ascites. EXTREMITIES: Consistent with anasarca. DIAGNOSTICS: Lab values are as follows - Hematology obtained on 07/03/2017; WBC is 6.2, hemoglobin is , hematocrit is 35.2, platelet count is 126,000. Chemistry obtained on 07/04/2018; glucose is 155. IMPRESSION AND PLAN: 1. END-STAGE CIRRHOSIS OF THE LIVER. The patient does have a MELT score of 22-24. Giving the patient approximately 76% chance of mortality in 3 months. This was communicated with the patient for which he is well aware. The patient has elected to proceed with an indwelling drainage setup and is agreeable to hospice in [place]. I have tried to talk with his daughter to ensure there is consensus and the patient is not terribly confused. However, she did not answer the phone. I have discussed this with case management and we will go from there. 2. HEPATIC ENCEPHALOPATHY SECONDARY TO #1. 3. CHRONIC HEPATITIS C, NAIVE TO TREATMENT. The patient is not a good candidate for treatment anymore. 4. THROMBOCYTOPENIA SECONDARY TO #1. 5. PIMENTEL'S PALSY. 6. CHRONIC ASCITES. The patient has had numerous paracentesis, we will go ahead and place an indwelling catheter and follow. CODE STATUS: The patient is a DO NOT RESUSCITATE/DO NOT INTUBATE with conservative management only. The patient does want to prioritize his pain. DISPOSITION: Depending on the patient's symptomatology and diagnostic findings will reevaluate in the a.m. TIME SPENT: On this follow up, including assessment and plan, physical examination, patient education, review of records, and attempt to reach the family is 35 minutes. DICTATING PHYSICIAN: BRAD TURPIN NP [id number] EDDYY#: [id number] ID: [id number] JOB#: [id number] ACCT: [id number] cc: > MTDD
[2018-07-04] MEDS: TRAZODONE HCL 50 MG TABLET PO SCH ×2 (21:14→21:44)
[2018-07-04] MEDS: LIDOCAINE 5% (700 MG) TRANSDERMAL ADH..PATCH TP SCH (21:15)
--- NOTE | 2018-07-05 04:57 | PROGRESS NOTE E ---
Progress Note NAME: ELIS GRIGGS : 1950 AGE: 67Y DATE: 07/04/2018 ROOM: 538 ADVANCED CARE PLANNING NOTE TIME IN: 9:50 TIME OUT: 10:32 The patient is a 67-year-old male with a past medical history of liver cirrhosis documented back into at least 2006. The patient was brought in to the hospital at the time with a urinary tract infection. The patient had a 16-day hospitalization to this point given his cirrhosis and has required 2 separate paracenteses and has reaccumulated. The patient's daughter, Parul, who is his surrogate decision maker, is available for a conversation. The patient himself also contributed to this conversation. Within the conversation was asking the patient if he could explain his disease to me. The patient stated that he was going to in 6 months. The patient stated, "he had drank himself to ." The patient stated that he hopes for a miracle, but has done it "his way." This did make the daughter quite tearful and the patient, who at times does not have clarity, had much insight to his situation during this encounter. I explained the MELD score to the patient and his daughter, which were between 22 and 25, giving a 76% chance of mortality in the next 3 months. Given the patient's bilirubin of 10 as well as an INR of 1.7, this seems generous. The patient is profoundly thrombocytopenic as well as had an acute kidney injury on admission. The patient's creatinine is 1.7 at this time. However, most likely the patient's muscle mass and malnutrition have thrown this. Did discuss options, and given that the patient does have a short life, did ask his priorities. The patient prioritized being pain free and would like his abdomen drained. The patient is agreeable to an indwelling catheter to drain fluid from his abdomen. Additionally, the patient would like aggressive pain management, as he does not want to feel any pain. The patient's desires appear to be aligned with comfort care measures. This has been communicated with the daughter, who is agreeable to this. Although she is tearful, she does understand that this has been going on for years and given his untreated hepatitis C and active drinking, it is not feasible that the patient would even be able to get a transplant should his situation be completely ideal. PLAN: At this time, will proceed with DO NOT RESUSCITATE/DO NOT INTUBATE with comfort care measures only. Will schedule the drain. The daughter would like the patient to go to the hospice house near her in [place]. I have communicated this to Case Management as well. DICTATING PHYSICIAN: BRAD TURPIN NP [id number] PHY#: [id number] ID: [id number] JOB#: [id number] ACCT: [id number] cc: > MTDD
[2018-07-05] MEDS: MORPHINE SULFATE 10 MG/ML INJ IV PRN ×2 (05:05→11:38)
[2018-07-05] MEDS ORDERED: FENTANYL CITRATE INJ/PF 100 MCG/2 ML AMPUL ONE ×2 (08:08→09:58)
[2018-07-05] MEDS ORDERED: ONDANSETRON HCL INJ/PF 4 MG/2 ML SDV ONE ×2 (08:08→09:58)
[2018-07-05] MEDS ORDERED: DIPHENHYDRAMINE HCL 50 MG/ML VIAL ONE ×2 (08:08→09:58)
[2018-07-05] MEDS ORDERED: GLUCAGON,HUMAN RECOMB 1 MG INJ ONE ×2 (08:09→09:59)
[2018-07-05] MEDS ORDERED: FLUMAZENIL INJ 0.5 MG/5 ML VIAL ONE ×2 (08:09→09:59)
[2018-07-05] MEDS ORDERED: MIDAZOLAM 2 MG/2 ML INJ ONE ×2 (08:09→09:59)
[2018-07-05] MEDS ORDERED: EPINEPHRINE INJ 1 MG/10 ML DISP.SYRIN ONE ×2 (08:09→09:59)
[2018-07-05] MEDS ORDERED: NALOXONE HCL INJ/PF 0.4 MG/1 ML SDV ONE ×2 (08:09→09:59)
[2018-07-05] MEDS ORDERED: LIDOCAINE 1% INJ-PF (10 MG/ML) 30 ML SDV ONE (10:43)
[2018-07-05] MEDS ORDERED: LIDOCAINE 2% INJ (20 MG/ML) 20 ML MDV ONE (10:43)
[2018-07-05] MEDS: MAGNESIUM OXIDE 400 MG TABLET PO SCH ×2 (10:45→17:57)
[2018-07-05] MEDS: SPIRONOLACTONE 25 MG TABLET PO SCH ×2 (10:45→17:57)
--- NOTE | 2018-07-05 11:05 | Operative Report ---
Operative Report DATE OF SURGERY: 07/05/18 PREOPERATIVE DIAGNOSIS: 1. End stage liver failure. 2. Recurrent ascites POSTOPERATIVE DIAGNOSIS: Same OPERATION: 1. Ultrasound directed insertion of right upper quadrant Pleurx paracentesis catheter. 2. Drainage of ascites SURGEON: CLAIR ROBERT ANESTHESIA: Moderate Sedation TISSUE REMOVED OR ALTERED: Ascitic fluid COMPLICATIONS: None ESTIMATED BLOOD LOSS: Scant INTRAOPERATIVE FINDINGS: See below PROCEDURE: Patient was taken from the fifth floor to the endoscopy suite where he is placed in a semirecumbent position. The right upper quadrant was scanned with a variable frequency linear transducer and found to have ascitic fluid in the free peritoneal space. Appropriate level of conscious sedation was induced. The patient was cooperative, however we did restrain the arms. The right upper quadrant was prepped and draped sterile fashion with chlorhexidine. Surgical plan and surgical timeout were conducted. The skin was anesthetized 1% plain lidocaine. Using ultrasound as a guide, percutaneous insertion of 14-gauge needle achieved into the peritoneal space, and a wire threaded into position. A suitable site for exit of the Pleurx catheter was chosen several centimeters caudad. Skin was anesthetized with 1% plain lidocaine. A small incision was made with a #11 blade, and the Pleurx catheter tunnel from caudad to cephalad direction with the cuff in the subcutaneous space. We now dilated up the tract with the small then medium then medium sized dilator with strip away sheath. Dilator and wire were removed, catheter threaded into the right upper quadrant strip away sheath removed. There is no kinking of the catheter. The catheter was immediately hooked up to the proprietary Pleurx drainage system and drained several liters of ascitic fluid. Catheter was secured to the skin with 0 silk suture, Biopatch. The initial stab incision was closed with a 2-0 Vicryl suture. Sterile dressing including OpSite applied. Patient tolerated procedure well. Discharge instructions are provided.
[2018-07-05] MEDS: THIAMINE HCL 100 MG TABLET PO SCH (11:39)
[2018-07-05] MEDS: FOLIC ACID 1 MG TABLET PO SCH (11:40)
[2018-07-05] MEDS: DOCUSATE SODIUM 100 MG CAPSULE PO SCH (11:40)
[2018-07-05] MEDS: PHARMACY COMMUNICATION ORDER MC SCH (11:56)
[2018-07-05] MEDS: FUROSEMIDE 40 MG TABLET PO SCH ×2 (11:56→21:27)
[2018-07-05 15:16] VITALS: BP 142/72
--- NOTE | 2018-07-05 15:32 | PROGRESS NOTE E ---
Progress Note NAME: ELIS GRIGGS : 1950 AGE: 67Y DATE: 07/05/2018 ROOM: 538 SUBJECTIVE: The patient is lying in bed. The patient did go to the OR this morning. The patient does have waxing and waning mentation. At times he is extremely clear and at other times quite confused, most likely Wernicke versus Korsakoff-type process. The patient has been afebrile, his blood pressures have been reasonable, and the patient has remained on comfort measures. REVIEW OF SYSTEMS: Unobtainable. MEDICATIONS: Reviewed. OBJECTIVE: GENERAL: The patient is a 67-year-old male who is awake, alert. He does not appear to be distressed. VITAL SIGNS: As follows: Temperature is 98.0, pulse 108, respirations 18, blood pressure is 138/72, oxygen saturation is 96% on room air. SKIN: Jaundice. He is not diaphoretic. HEENT: Sclerae is icterus. CARDIOVASCULAR: The patient is tachycardic. CHEST: Symmetrical, unlabored. ABDOMEN: Distended with ascites. EXTREMITIES: Consistent with anasarca. DIAGNOSTICS: Lab values are as follows. Hematology obtained on 07/03/2018: WBC is 6.2, hemoglobin is 9.2, hematocrit is 35.2, platelet count is 126,000. Chemistry obtained on 07/03/2018: Sodium is 130, potassium 5.1, chloride is 97, carbon dioxide 19, BUN 18, creatinine is 0.78, glucose 234, calcium is 9.2, magnesium is 1.8. IMPRESSION AND PLAN: 1. END-STAGE CIRRHOSIS. The patient has a MELD score of 22 to 24, giving the patient an approximately 76% chance of mortality in the next 3 months. This was discussed with both the patient and the daughter, agreeable to move forward with hospice with an indwelling drainage catheter. Do appreciate Surgery's help with this. 2. HEPATIC ENCEPHALOPATHY SECONDARY TO #1. Given the patient is on comfort measures, it may be ideal to let his ammonia trend up. 3. CHRONIC HEPATITIS C NAIVE TO TREATMENT. The patient is not a candidate for treatment at this time. 4. THROMBOCYTOPENIA SECONDARY TO #1. 5. PIMENTEL PALSY. 6. CHRONIC ASCITES. The patient is having indwelling catheter placed. DISPOSITION: THE PATIENT IS A DO NOT RESUSCITATE/DO NOT INTUBATE WITH COMFORT CARE ONLY. Pending the patient's symptomatology, will re-evaluate in the a.m. Time spent on this followup, including review of records, is 15 minutes. DICTATING PHYSICIAN: BRAD TURPIN NP [id number] PHY#: [id number] ID: [id number] JOB#: [id number] ACCT: [id number] cc: >
[2018-07-05] MEDS: LANSOPRAZOLE 15 MG TAB.RAP.DR PO SCH (17:57)
[2018-07-05] MEDS: TAMSULOSIN HCL 0.4 MG CAP.SR.24H PO SCH (17:57)
[2018-07-05] MEDS: TRAZODONE HCL 50 MG TABLET PO SCH (21:27)
[2018-07-05] MEDS: LIDOCAINE 5% (700 MG) TRANSDERMAL ADH..PATCH TP SCH (21:28)
[2018-07-06] MEDS: LANSOPRAZOLE 15 MG TAB.RAP.DR PO SCH ×3 (05:20→18:18)
[2018-07-06] MEDS: MORPHINE SULFATE 10 MG/ML INJ IV PRN (10:56)
[2018-07-06] MEDS: MAGNESIUM OXIDE 400 MG TABLET PO SCH ×2 (10:58→18:18)
[2018-07-06] MEDS: FUROSEMIDE 40 MG TABLET PO SCH (10:58)
[2018-07-06] MEDS: FOLIC ACID 1 MG TABLET PO SCH (10:58)
[2018-07-06] MEDS: DOCUSATE SODIUM 100 MG CAPSULE PO SCH (10:58)
[2018-07-06] MEDS: SPIRONOLACTONE 25 MG TABLET PO SCH (10:58)
[2018-07-06] MEDS: PHARMACY COMMUNICATION ORDER MC SCH (10:59)
[2018-07-06] MEDS: THIAMINE HCL 100 MG TABLET PO SCH (10:59)
[2018-07-06] MEDS ORDERED: BUSPIRONE HCL 10 MG TABLET PO ONE (11:36)
[2018-07-06] MEDS ORDERED: DIVALPROEX SODIUM 250 MG TAB.SR.24H PO ONE (11:36)
[2018-07-06] MEDS: OXYCODONE HCL IR 5 MG TABLET PO PRN (15:59)
[2018-07-06] MEDS: TAMSULOSIN HCL 0.4 MG CAP.SR.24H PO SCH (18:18)
[2018-07-06] MEDS: BUSPIRONE HCL 10 MG TABLET PO SCH (21:57)
[2018-07-06] MEDS: TRAZODONE HCL 50 MG TABLET PO SCH (21:57)
[2018-07-06] MEDS: QUETIAPINE FUMARATE 25 MG TABLET PO SCH (21:57)
[2018-07-06] MEDS: LIDOCAINE 5% (700 MG) TRANSDERMAL ADH..PATCH TP SCH (21:58)
[2018-07-07] MEDS: LANSOPRAZOLE 15 MG TAB.RAP.DR PO SCH (05:14)
[2018-07-07] MEDS ORDERED: OXYCODONE HCL IR 5 MG TABLET PO PRN (08:52)
[2018-07-07] MEDS ORDERED: HYDROMORPHONE HCL INJ/PF 2 MG/ML AMPULE IV PRN (08:53)
--- NOTE | 2018-07-07 09:37 | PROGRESS NOTE E ---
Progress Note NAME: ELIS GRIGGS : 1950 AGE: 67Y DATE: 07/06/2018 ROOM: 538 SUBJECTIVE: The patient is currently lying in bed. The patient has periods of complete lucidity and then has some significant confusion. The patient's daughter was here earlier today; however, I did miss her visit. She filled out advanced directives and left. The patient has been comfortable. REVIEW OF SYSTEMS: Unobtainable. MEDICATIONS: Reviewed. OBJECTIVE: GENERAL: The patient is a 67-year-old male who is awake, alert, is not fully oriented at this moment, does not appear to be distressed. VITAL SIGNS: As follows: Temperature is 97.8, pulse 115, respirations 19, blood pressure 142/72, oxygen saturation 94% on room air. SKIN: Jaundice. No rash, not diaphoretic. HEENT: Sclera is icterus. CHEST: Symmetrical, unlabored. ABDOMEN: Distended. EXTREMITIES: The patient has evidence of anasarca. PSYCHIATRIC: The patient is comfortable at this time. DIAGNOSTICS: Lab values are as follows. Hematology obtained on 07/03/2018: WBC is 6.2, hemoglobin is 11.2, hematocrit is 35.2, platelet count is 126,000. Chemistry obtained on 07/03/2018: Sodium is 130, potassium 4.1, chloride is 99, carbon dioxide 19, BUN 18, creatinine 0.74, glucose 234, calcium is 9.2, magnesium is 1.8, bilirubin is 9.9. IMPRESSION AND PLAN: 1. END-STAGE CIRRHOSIS. The patient has a MELD Score between 20 to 24, giving approximately a 76% chance of mortality in the next 3 months. Discussed with both the patient and daughter, is agreeable to move forward with hospice. The patient did have an indwelling catheter placed yesterday to drain his ascites as needed. Do appreciate Surgery's help with this. 2. HEPATIC ENCEPHALOPATHY SECONDARY TO #1. The patient is on comfort measures. Hopefully his ammonia will trend up; thus, resulting in him just being more somnolent. Have added some antipsychotics as well. 3. CHRONIC HEPATITIS C NAIVE TO TREATMENT. The patient is no longer a candidate. 4. THROMBOCYTOPENIA SECONDARY TO #1. 5. PIMENTEL PALSY. 6. CHRONIC ASCITES. The patient will have a catheter placed. 7. OPIATE DEPENDENCY CONTINUOUS. Will add methadone as the patient took it for years. DISPOSITION: THE PATIENT IS A DO NOT RESUSCITATE/DO NOT INTUBATE WITH COMFORT CARE MEASURES ONLY. As soon as the patient's behavior is a little better controlled [facility]. Time spent on this followup, including review of records, is 25 minutes. DICTATING PHYSICIAN: BRAD TURPIN NP [id number] PHY#: [id number] ID: [id number] JOB#: [id number] ACCT: [id number] cc: > MTDD
[2018-07-07] MEDS: DIVALPROEX SODIUM 250 MG TAB.SR.24H PO SCH (09:59)
[2018-07-07] MEDS: BUSPIRONE HCL 10 MG TABLET PO SCH (09:59)
[2018-07-07] MEDS: METHADONE HCL 10 MG TABLET PO SCH ×2 (10:00→17:08)
[2018-07-07] MEDS: DOCUSATE SODIUM 100 MG CAPSULE PO SCH (10:05)
[2018-07-07] MEDS: PHARMACY COMMUNICATION ORDER MC SCH (10:06)
--- NOTE | 2018-07-07 14:12 | PROGRESS NOTE E ---
Progress Note NAME: ELIS GRIGGS : 1950 AGE: 67Y DATE: 07/07/2018 ROOM: 538 SUBJECTIVE: The patient is currently lying in bed. The patient is confused. He did have a good night overnight but this morning is being somewhat combative. The patient's discharge has been impeded by his behavior as I am trying to get his behaviors in a controlled place. The patient at this point is paranoid, trying to get some antipsychotics on board, but the patient did have a good night, has remained out of restraints overnight. The patient is unable to voice any specific concerns at this time. REVIEW OF SYSTEMS: Unobtainable. MEDICATIONS: Medications have been reviewed. OBJECTIVE: GENERAL: The patient is a frail, chronically ill appearing 67-year-old male who does not appear to be distressed. VITAL SIGNS: Temperature is 97.8, pulse 115, respirations 19, blood pressure is 142/72, oxygen saturation is 94% on room air. SKIN: Jaundiced. He is not diaphoretic. NEUROLOGIC: The patient is awake and alert but not fully oriented. CHEST: Symmetrical, unlabored. ABDOMEN: Distended with ascites. PleurX catheter is in place. PSYCHIATRIC: The patient is encephalopathic. DIAGNOSTICS: Lab values are as follows: Hematology obtained on 07/03/2018: WBC's are 6.3, hemoglobin is 11.2, hematocrit is 35.2, platelet count is 126,000. Chemistry obtained on 07/03/2018: Sodium is 130, potassium 4.1, chloride is 101, carbon dioxide is 19, BUN 18, creatinine is 0.74, calcium is 9.2, magnesium is 1.8, bilirubin is 9.9, AST 452, ALT is 147, alkaline phosphatase 128, total protein is 7.2, albumin 3.8. IMPRESSION AND PLAN: 1. END-STAGE CIRRHOSIS. The patient had a MELD score of 22/24, given a 76% chance of mortality in the next 3 months. This has been discussed with the patient and the daughter and he is moving forward with hospice with the indwelling drainage catheter in his abdomen. I do appreciate Surgery's help on this. 2. HEPATIC ENCEPHALOPATHY SECONDARY TO NUMBER ONE. The patient does have episodes of clarity. At this time not treating his ammonia for comfort reasons. Have added BuSpar, as well as Depakote in an effort to help the patient's mentation. The patient does not appear to do well with Haldol. The patient also responds really well to Oxy, therefore will increase oral dosage of this as well. Follow. 3. CHRONIC HEPATITIS C DOLORES TO TREATMENT. The patient is not a candidate for any form of treatment. 4. 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 5. BELLS PALSY. 6. CHRONIC ASCITES. He has an indwelling drainage catheter. DISPOSITION: THE PATIENT IS A DO NOT RESUSCITATE/DO NOT INTUBATE WITH COMFORT CARE MEASURES ONLY. Will re-evaluate in the a.m. The patient will go to a facility as soon as we get his behaviors controlled. Had a lengthy meeting with the patient's daughter regarding a plan of care. Time spent on this followup, including assessment, plan, physical examination, review of records, is 35 minutes. DICTATING PHYSICIAN: BRAD TURPIN NP [id number] PHY#: [id number] ID: [id number] JOB#: [id number] ACCT: [id number] cc: > MTDD
[2018-07-07] MEDS: TAMSULOSIN HCL 0.4 MG CAP.SR.24H PO SCH (17:06)
[2018-07-08] MEDS: METHADONE HCL 10 MG TABLET PO SCH ×3 (04:50→15:14)
[2018-07-08] MEDS: BUSPIRONE HCL 10 MG TABLET PO SCH ×2 (04:50→10:10)
[2018-07-08] MEDS: QUETIAPINE FUMARATE 25 MG TABLET PO SCH (04:50)
[2018-07-08] MEDS: TRAZODONE HCL 50 MG TABLET PO SCH (04:50)
[2018-07-08] MEDS: DIVALPROEX SODIUM 250 MG TAB.SR.24H PO SCH (10:10)
[2018-07-08] MEDS: DOCUSATE SODIUM 100 MG CAPSULE PO SCH (10:11)
[2018-07-08] MEDS: PHARMACY COMMUNICATION ORDER MC SCH (10:11)
--- NOTE | 2018-07-08 16:27 | PROGRESS NOTE E ---
Progress Note NAME: ELIS GRIGGS : 1950 AGE: 67Y DATE: 07/08/2018 ROOM: 538 SUBJECTIVE: The patient is lying in bed. The patient has had a significant change this morning, a change in his breathing, the change in his mentation. The patient more or less is catatonic. No reported episodes of vomiting or diarrhea. The patient was restless overnight. BRIEF HISTORY: The patient is a 67-year-old male with a past medical history of end-stage cirrhosis. The patient has been in our service a number of days and was treated for acute kidney injury, UTI, and progressively declined. The patient was requiring multiple thoracentesis and therefore an indwelling catheter was placed for abdominal drainage for patient comfort. This has been secured with an abdominal binder at this time. A meeting was held with the patient's daughter who has elected to proceed with hospice. The patient, at this point, does have an option of going to a local [facility] with palliative measures and with a transition to possibly a hospice house in [place] near where she is whenever he gets more acute. However, the patient's behaviors have had to been addressed as the patient has required restraints. The patient has been started on Depakote as well as BuSpar and resumed his methadone that he has been on chronically for his pain control. Hopefully, we can have some improvement in the patient's behaviors to get him placed. REVIEW OF SYSTEMS: A complete review of systems is unobtainable. MEDICATIONS: Reviewed. OBJECTIVE: GENERAL: The patient is a 67-year-old male who is awake, alert, but he is not really responsive at all. He does not appear to be distressed. VITAL SIGNS: Last recorded vital signs as follows: Temperature is 97.8, pulse 115, respirations 19, blood pressure is 142/72, oxygen saturation is 94% on 2 L. SKIN: Very jaundiced. He is not diaphoretic. HEENT: Sclera is icterus. CHEST: Symmetrical, slightly labored. ABDOMEN: Has ascites. EXTREMITIES: Anasarca. DIAGNOSTICS: Lab values are as follows: Hematology obtained on 07/03/2018: WBC is 6.2, hemoglobin is 9.2, hematocrit is 35.2, platelet count is 126,000. Chemistry obtained on 07/03/2018: Sodium is 130, potassium 5.1, chloride is 99, carbon dioxide 19, BUN 18, creatinine is 0.74, glucose 234, calcium is 9.2. IMPRESSION AND PLAN: 1. END-STAGE CIRRHOSIS. The patient has a MELD score of 22-24, given a 76% chance of mortality in the next 3 months. I cannot foresee it lasting this long. The patient has declined rapidly. Moving forward with hospice at this point. He does have indwelling drainage catheter in his abdomen. Do appreciate Surgery's help with this. 2. HEPATIC ENCEPHALOPATHY SECONDARY TO #1. The patient does have episodes of clarity, not treating his ammonia, hoping this can trend up and the patient can just go to sleep. He is currently receiving BuSpar, Depakote in an effort to help his mentation. He does not appear to do well with Haldol at all. The patient has been started on his methadone as well as oxy for breakthrough. 3. CHRONIC HEPATITIS C, DOLORES TO TREATMENT. The patient is not a candidate for any form of treatment. 4. THROMBOCYTOPENIA SECONDARY TO 1. 5. PIMENTEL'S PALSY. 6. CHRONIC ASCITES. Drain is needed. DISPOSITION: The patient is a DO NOT RESUSCITATE/DO NOT INTUBATE WITH COMFORT CARE MEASURES ONLY. The patient is to go to hospice as soon as this is arranged. Time spent on this followup including assessment, plan, physical examination, attempt at patient education, and review of records is 25 minutes. DICTATING PHYSICIAN: BRAD TURPIN NP [id number] PHY#: [id number] ID: [id number] JOB#: [id number] ACCT: [id number] cc: >
[2018-07-08] MEDS: TAMSULOSIN HCL 0.4 MG CAP.SR.24H PO SCH (17:25)
[2018-07-09] MEDS: BUSPIRONE HCL 10 MG TABLET PO SCH ×3 (01:02→21:08)
[2018-07-09] MEDS: QUETIAPINE FUMARATE 25 MG TABLET PO SCH ×2 (01:02→21:08)
[2018-07-09] MEDS: TRAZODONE HCL 50 MG TABLET PO SCH ×2 (01:02→21:09)
[2018-07-09] MEDS: METHADONE HCL 10 MG TABLET PO SCH ×3 (01:02→14:39)
[2018-07-09] MEDS: PHARMACY COMMUNICATION ORDER MC SCH (09:24)
[2018-07-09] MEDS: DOCUSATE SODIUM 100 MG CAPSULE PO SCH (09:24)
[2018-07-09] MEDS: DIVALPROEX SODIUM 250 MG TAB.SR.24H PO SCH ×2 (09:24→18:34)
[2018-07-09] MEDS: CHLORPROMAZINE HCL INJ 25 MG/1 ML AMPULE IM PRN (17:09)
[2018-07-09] MEDS: TAMSULOSIN HCL 0.4 MG CAP.SR.24H PO SCH (17:10)
--- NOTE | 2018-07-09 17:15 | PDOC PROGRESS REPORT ---
Subjective Progress Note for:: 07/09/18 Subjective:: Patient is considerably worse since last time I evaluated him. He is evaluated with his daughter and her mother in the room. They are agreeable to local palliative care due to patient's deterioration. He has been out of restraints now for almost 24 hours. He is not taking oral pain medications. Family reports that he does not want an IV replaced. They are requesting an alternative form of pain medication. He remains DNR. Reason For Visit: UTI,DEEDEE,END STAGE LIVER DISEASE Physical Exam Vital Signs: Temp Pulse Resp BP Pulse Ox 97.8 F 115 H 19 142/72 H 94 07/05/18 11:33 07/05/18 11:33 07/05/18 11:33 07/05/18 11:33 07/05/18 11:33 Intake & Output 07/08/18 07/09/18 07/10/18 06:59 06:59 06:59 Intake Total 690 910 Output Total 250 1900 500 Balance 440 -990 -500 Weight 109.9 kg 109.9 kg General appearance: PRESENT: no acute distress Head exam: PRESENT: atraumatic, normocephalic Respiratory exam: PRESENT: other - Coarse bilaterally Cardiovascular exam: PRESENT: RRR, +S1, +S2 GI/Abdominal exam: PRESENT: other - Distended, tense, ascites. Neurological exam: PRESENT: awake, other - Does not appear to be alert and oriented. Jaundiced throughout. Scleral icterus. Results Laboratory Results: 07/03/18 08:36 07/03/18 08:36 Impressions: Knee X-Ray 06/18/18 11:46 IMPRESSION: Degenerative changes without evidence of fracture. Paracentesis Ultrasound 06/27/18 08:00 IMPRESSION: SUCCESSFUL ULTRASOUND GUIDED PARACENTESIS. Abdomen/Pelvis CT 07/03/18 00:00 IMPRESSION: 1. Cirrhosis with probable large hepatoma. 2. 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 This may represent bland or tumor thrombus. 3. Splenomegaly. Assessment & Plan - Diagnosis (1) Tatum's palsy Is this a current diagnosis for this admission?: Yes (2) Cirrhosis of liver Qualifiers: Ascites presence: with ascites Is this a current diagnosis for this admission?: Yes (3) End-stage liver disease Is this a current diagnosis for this admission?: Yes (4) Urinary tract infection Qualifiers: Urinary tract infection type: acute cystitis Hematuria presence: with hematuria Qualified Code(s): N30.01 - Acute cystitis with hematuria Is this a current diagnosis for this admission?: Yes (5) Acute kidney injury Is this a current diagnosis for this admission?: Yes (6) Hepatitis C Qualifiers: Viral hepatitis chronicity: chronic Hepatic coma status: without hepatic coma Qualified Code(s): B18.2 - Chronic viral hepatitis C Is this a current diagnosis for this admission?: Yes - Time Time Spent with patient: 15-24 minutes Within: within 48 hours - Inpatient Certification Based on my medical assessment, after consideration of the patient's comorbidities, presenting symptoms, or acuity I expect that the services needed warrant INPATIENT care.: Yes I certify that my determination is in accordance with my understanding of Medicare's requirements for reasonable and necessary INPATIENT services [42 CFR 412.3e].: Yes - Plan Summary Plan Summary: 1. End-stage liver disease. Continues to be DNR. Family is agreeable to local care. Plan for discharge tomorrow July 10. Stop p.o. and IV pain medications. Start that no patch. If agitated consider increasing Risperdal.
[2018-07-10] MEDS ORDERED: CHLORPROMAZINE HCL INJ 25 MG/1 ML AMPULE ONE (01:40)
[2018-07-10] MEDS: CHLORPROMAZINE HCL INJ 25 MG/1 ML AMPULE IM PRN (01:54)
[2018-07-10] MEDS ORDERED: MORPHINE SULFATE 10 MG/ML INJ IM PRN (08:35)
[2018-07-10] MEDS ORDERED: FENTANYL 25 MCG/HR PATCH.TD72 TD SCH (09:00)
[2018-07-10] MEDS: DOCUSATE SODIUM 100 MG CAPSULE PO SCH (09:37)
[2018-07-10] MEDS: BUSPIRONE HCL 10 MG TABLET PO SCH (09:37)
[2018-07-10] MEDS: DIVALPROEX SODIUM 250 MG TAB.SR.24H PO SCH (09:43)
--- NOTE | 2018-07-10 16:40 | Death Summary ---
Summary Date : 07/10/18 Time of :: 13:40 Autopsy: No Resuscitation Status: Comfort Measures Only - Final Diagnosis (1) Tatum's palsy Is this a current diagnosis for this admission?: Yes (2) Cirrhosis of liver Is this a current diagnosis for this admission?: Yes (3) End-stage liver disease Is this a current diagnosis for this admission?: Yes (4) Urinary tract infection Is this a current diagnosis for this admission?: Yes (5) Acute kidney injury Is this a current diagnosis for this admission?: Yes (6) Hepatitis C Is this a current diagnosis for this admission?: Yes Hospital Course:: Patient was admitted on June 18 2018. HPI is below: ELIS GRIGGS is a 67 year old male with a past medical history of end-stage liver disease, hepatitis C, DM type II, neuropathy, hypertension, GERD, depression, tobacco dependence, alcohol dependence, and drug abuse (patient reports that he discontinued tobacco, alcohol, recreational drugs 3 months ago) who presented to the emergency department today with a primary complaint of right knee pain status post mechanical fall at home. The patient reports that he has had multiple falls at home over the last month, reportedly has not had anything to eat in approximately 5 days, cannot recall whether or not he is drinking fluids but does note that he has not had any urine output.Evaluation in the emergency department revealed mild tachycardia (HR 114), tachypnea (RR 22), baseline anemia (hemoglobin 10.3), hypercoagulability (INR 1.74), AK I (CR 1.34; baseline 0.87), elevated LFTs (total bili 6.9; baseline 2.5), and a urinary tract infection. He is referred to the hospitalist service for admission and management of the above stated complaints. -End Stage liver disease due to known history of untreated hepatitis C and alcohol abuse. Meld score 23 on admission. he Was evaluated by GI while admitted. He was also evaluated by general surgery, and they recommended a Pleurx catheter placement. However it appears that this measure was not chosen.During admission he had multiple therapeutic paracentesis. His abdominal cavity subsequently filled right back up with fluid. Intermittently had elevated ammonia levels which are treated with lactulose. Throughout the admission his bilirubin steadily increased. -Urinary tract infection found early admission. Patient was treated with Rocephin. -Tatum's palsy improved during admission, possibly due to steroids. -Pallitive care was consulted early in the admission. However placement proceeded to be an issue. Attempts were made to find the patient placement in [place] so the he would be closer to his daughter on discharge, however based on placement was found he was unable to successfully be transferred to [place] due to his instability. -Multiple episodes of agitation occurred throughout the admission. He was tried on numerous medications, including Depakote, Seroquel, Risperdal, trazodone, Haldol, Ativan, Zyprexa, Thorazine. Intermittently the patient was lucid early on in the admission, and was pleasant during those times, however does admission went on he became more more confused and more agitated. Ultimately he progressed to agonal breathing and subsequently on July 10 at 1340 -Ultimately the plan was to transfer the patient to a local facility, however the patient's condition took a turn for the worse. He was unable to use be stable enough for a transfer. Family was understanding to this information. He was provided comfort medications of IM morphine and fentanyl patch as he was unable to tolerate p.o. medications and did not have IV access. -Blood glucose levels were elevated in the 200s mostly admission, but were not aggressively aggress due to the possibility of hypoglycemia secondary to failing liver. -During admission the patient's daughter was helpful in making decisions.
[2018-07-12] MEDS ORDERED: FENTANYL 25 MCG/HR PATCH.TD72 TD SCH (10:00)
== END 2018-07-10 15:00 | disposition expired | DRG 683 ==
LOC: ER 11:05 → EH 15:04 → 5 17:13
PROVIDERS: ADMIT Hospitalist; ATTEND Hospitalist
PROC: 0W9G3ZZ Drainage of Peritoneal Cavity, Percutaneous Approach (ICD-10-PCS; 2018-06-20)
PROC: 0W9G3ZZ Drainage of Peritoneal Cavity, Percutaneous Approach (ICD-10-PCS; 2018-06-27)
PROC: 0W9G30Z Drainage of Peritoneal Cavity with Drainage Device, Percutaneous Approach (ICD-10-PCS; principal; 2018-07-05 10:00)
DX: N17.9 Acute kidney failure, unspecified (principal); N30.01 Acute cystitis with hematuria; F11.20 Opioid dependence, uncomplicated; K70.31 Alcoholic cirrhosis of liver with ascites; D63.8 Anemia in other chronic diseases classified elsewhere; B18.2 Chronic viral hepatitis C; G51.0 Bell's palsy; K72.90 Hepatic failure, unspecified without coma; Z51.5 Encounter for palliative care; Z66 Do not resuscitate; Z78.1 Physical restraint status; N40.1 Benign prostatic hyperplasia with lower urinary tract symptoms; R33.8 Other retention of urine; E11.21 Type 2 diabetes mellitus with diabetic nephropathy; D69.6 Thrombocytopenia, unspecified; I10 Essential (primary) hypertension; M25.561 Pain in right knee; K21.9 Gastro-esophageal reflux disease without esophagitis; F32.9 Major depressive disorder, single episode, unspecified; F10.20 Alcohol dependence, uncomplicated; Z87.891 Personal history of nicotine dependence; Z79.82 Long term (current) use of aspirin; Z79.899 Other long term (current) drug therapy; Z88.0 Allergy status to penicillin; W19.XXXA Unspecified fall, initial encounter; Y93.9 Activity, unspecified; Y92.9 Unspecified place or not applicable; Y99.9 Unspecified external cause status
CPT/HCPCS: 36415; 36600; 49082; 49083; 74177; 80053; 80061; 80307; 81001; 82140; 82607; 82746; 82962; 83036; 83735; 84100; 84443; 85025; 85027; 85610; 85730; 87040; 87070; 87075; 87086; 87205; 93005; 93010; 99285; C1758; G8978-GP; G8979-GP; G8987-GO; G8988-GO; G8996-GN; G8997-GN; J0171; J0696; J1200; J1610; J1630; J1815; J1940; J2060; J2250; J2270; J2310; J2405; J2920; J3010; J3230; J3490; J7030; J7620